=== PATIENT | female | born 1940 | race Caucasian/White ===

== ENCOUNTER 2016-05-03 20:00 | Inpatient (IN) | payer MEDICARE ==
[2016-05-03] MEDS ORDERED: RX INFO: IV CONTRAST WAS GIVEN 1 EACH MISC MISCELLANE PRN (20:02)
--- NOTE | 2016-05-03 20:28 | CT ---
EXAMINATION TYPE: CT brain wo con DATE OF EXAM: 05/03/2016 8:23 PM COMPARISON: NONE HISTORY: Left sided weakness. CT DLP: 1174 mGycm Automated exposure control for dose reduction was used. FINDINGS: Ventricles and sulci appear normal for age. There is no mass effect nor midline shift. There is no si gn of intracranial hemorrhage. The calvarium is intact. IMPRESSION: Negative unenhanced head CT scan.
[2016-05-03 20:45] LABS: Glucose,Whole Blood 103 mg/dL (75-99)
[2016-05-03 20:53] LABS: Basophils % (A) 0 %; CH 32.2; CHCM 33.9; Eosinophils # (A) 0.2 k/uL (0-0.7); Eosinophils % (A) 3 %; HCT 39.1 % (34.0-46.0); HGB 13.1 gm/dL (11.4-16.0); Luc # (Auto) 0.15; Luc % (Auto) 3; Lymphocytes # (A) 1.8 k/uL (1.0-4.8); Lymphocytes % (A) 32 %; MCH 31.8 pg (25.0-35.0); MCHC 33.5 g/dL (31.0-37.0); MCV 95.1 fL (80.0-100.0); Mean Platelet Volume 8.3; Monocytes # (A) 0.3 k/uL (0-1.0); Monocytes % (A) 5 %; Neutrophils # (A) 3.2 k/uL (1.3-7.7); Neutrophils % (A) 56 %; RBC 4.11 m/uL (3.80-5.40); RDW 12.3 % (11.5-15.5); WBC 5.7 k/uL (3.8-10.6); WBC (Perox) 5.97
[2016-05-03 20:57] LABS: ALT 20 U/L (9-52); AST 31 U/L (14-36); Alkaline Phosphatase 44 U/L (38-126); Anion Gap 9 mmol/L; Blood Urea Nitrogen 19 mg/dL (7-17); Calcium 9.2 mg/dL (8.4-10.2); Carbon Dioxide 24 mmol/L (22-30); Chloride 107 mmol/L (98-107); Glucose 99 mg/dL (74-99); Non-African American GFR(MDRD) >60 (>60 ml/min/1.73 sqM); Prothrombin Time 9.9 sec (9.0-12.0); Sodium 140 mmol/L (137-145); Total Bilirubin 0.6 mg/dL (0.2-1.3); Total Protein 7.3 g/dL (6.3-8.2)
[2016-05-03 21:00] LABS: Potassium 4.7 mmol/L (3.5-5.1)
[2016-05-03 21:03] LABS: Partial Thromboplastin Time 22.3 sec (22.0-30.0)
[2016-05-03 21:09] LABS: Creatine Kinase 70 U/L (30-135)
--- NOTE | 2016-05-03 21:12 | XR ---
EXAMINATION TYPE: XR chest 1V portable DATE OF EXAM: 05/03/2016 9:04 PM COMPARISON: NONE HISTORY: Altered mental status. TECHNIQUE: Single frontal view of the chest is obtained. FINDINGS: Heart is enlarged. There is no heart failure. Lungs are clear of infiltrate. There is no e vidence of pulmonary mass. There are chest leads. There is no sign of pleural effusion. IMPRESSION: Mild cardiomegaly. No active cardiopulmonary disease.
[2016-05-03] MEDS ORDERED: ASPIRIN 81 MG CHEW PO STA (21:15)
--- NOTE | 2016-05-03 21:17 | CT ---
EXAMINATION TYPE: CT angio head neck DATE OF EXAM: 05/03/2016 8:59 PM COMPARISON: NONE HISTORY: Left side weakness. CT DLP: 422 mGycm Automated exposure control for dose reduction was used. CONTRAST: Performed with IV Contrast, patient injected with 65 mL of Omnipaque 300. FINDINGS: There are 3-D post processed images. The left vertebral artery as origin on the aortic arch. There is patency of the great vessels. There is mild plaque at the left carotid artery bifurcation with luminal narrowing of 25-30%. There is gusman ncy of the common carotid arteries. Right vertebral artery is larger than the left. The right carotid artery bifurcation appears widely patent. There is normal contrast opacification of the anterior middle and posterior cerebral arteries. There is no mass effect. There is no sign of aneurysm or neovascularity. There is patency of the vertebroba silar artery system. The basilar artery fills mostly from the right side. There is patency of the venous sinuses. I see no evidence of hemodynamically significant stenosis. IMPRESSION: MINIMAL CALCIFICATION AND PLAQUE AT THE LEFT CAROTID ARTERY BIFURCATION. NO EVIDENCE OF HEMODYNAMICAL LY SIGNIFICANT STENOSIS. NO INTRACRANIAL ABNORMALITY SEEN.
[2016-05-03 21:22] LABS: Creatine Kinase MB 0.8 ng/mL (0.0-2.4); Troponin I <0.012 ng/mL (0.000-0.034)
--- NOTE | 2016-05-03 22:04 | ED ---
Neuro HPI - General Chief Complaint: Neuro Symptoms/Deficit Stated Complaint: stroke Time Seen by Provider: 05/03/16 20:07 Source: EMS Mode of arrival: EMS Limitations: no limitations - History of Present Illness Is the patient presenting with stroke symptoms?: Yes Last Known Well Date: 05/03/16 Last Known Well Time: 19:30 Onset/Timin -: hour(s) Initial Comments: This patient is a 75-year-old woman who comes in by ambulance to be evaluated for possible stroke. She states she was at work tonight when her noted that the left side of her face looked different. The patient also feels like her left face and hand are little bit tingly. Patient denies headache, change in vision, speech or swallowing, neck pain, or any symptoms to the other extremities. No fever or chills. No chest pain or dyspnea. Location: left face, left arm History of same: No Place: work Severity: mild Quality: weak Improves With: none Worsens With: none On Anticoagulants: No Context: sudden onset Associated Symptoms: denies other symptoms - Related Data Allergies/Adverse Reactions: Allergies Allergy/AdvReac Type Severity Reaction Status Date / Time No Known Allergies Allergy Verified 05/03/16 20:48 Review of Systems ROS Statement: Those systems with pertinent positive or pertinent negative responses have been documented in the HPI. ROS Other: All systems not noted in ROS Statement are negative. Constitutional: Denies: fever, chills Eyes: Denies: vision change ENT: Denies: hearing loss Respiratory: Denies: cough, dyspnea Cardiovascular: Denies: chest pain, palpitations, edema, syncope Gastrointestinal: Denies: abdominal pain, nausea, vomiting Genitourinary: Denies: dysuria, hematuria Musculoskeletal: Denies: back pain Skin: Denies: rash Neurological: Reports: weakness. Denies: headache, numbness, paresthesias, confusion General Exam Limitations: no limitations General appearance: alert, in no apparent distress Head exam: Present: atraumatic, normocephalic Eye exam: Present: normal appearance, PERRL, EOMI. Absent: scleral icterus, conjunctival injection, nystagmus ENT exam: Present: normal oropharynx, mucous membranes moist Neck exam: Present: normal inspection, full ROM, other (No carotid bruit). Absent: tenderness, meningismus Respiratory exam: Present: normal lung sounds bilaterally. Absent: respiratory distress, wheezes, rales, rhonchi, stridor Cardiovascular Exam: Present: regular rate, normal rhythm, normal heart sounds. Absent: systolic murmur, diastolic murmur, rubs, gallop GI/Abdominal exam: Present: soft. Absent: distended, tenderness, guarding, rebound, rigid Extremities exam: Present: normal inspection, normal capillary refill. Absent: pedal edema, calf tenderness Back exam: Absent: CVA tenderness (R), CVA tenderness (L) Neurological exam: Present: alert, oriented X3, motor sensory deficit, other ( GCS is 15. Patient is alert and oriented 3. Cranial nerve exam reveals weakness of the lower motor neuron function of the left side of the face. Patient is able to raise her left brow and there is good lid strength. Motor strength exam reveals mild left upper extremity weakness versus the contralateral side but still 5 out of 5. No sensory deficit.). Absent: CN II- XII intact Skin exam: Present: warm, dry, intact, normal color. Absent: rash Stroke MDM - Lab Data Result diagrams: 05/03/16 20:33 05/03/16 20:33 Lab Results 05/03/16 05/03/16 05/03/16 Range/Units 20:24 20:33 20:33 WBC 5.7 (3.8-10.6) k/uL RBC 4.11 (3.80-5.40) m/uL Hgb 13.1 (11.4-16.0) gm/dL Hct 39.1 (34.0-46.0) % MCV 95.1 (80.0-100.0) fL MCH 31.8 (25.0-35.0) pg MCHC 33.5 (31.0-37.0) g/dL RDW 12.3 (11.5-15.5) % Plt Count 172 (150-450) k/uL Neutrophils % 56 % Lymphocytes % 32 % Monocytes % 5 % Eosinophils % 3 % Basophils % 0 % Neutrophils # 3.2 (1.3-7.7) k/uL Lymphocytes # 1.8 (1.0-4.8) k/uL Monocytes # 0.3 (0-1.0) k/uL Eosinophils # 0.2 (0-0.7) k/uL Basophils # 0.0 (0-0.2) k/uL PT (9.0-12.0) sec INR (<1.1) APTT (22.0-30.0) sec Sodium 140 (137-145) mmol/L Potassium 4.7 (3.5-5.1) mmol/L Chloride 107 (98-107) mmol/L Carbon Dioxide 24 (22-30) mmol/L Anion Gap 9 mmol/L BUN 19 H (7-17) mg/dL Creatinine 0.70 (0.52-1.04) mg/dL Est GFR (MDRD) Af Amer >60 (>60 ml/min/1.73 sqM) Est GFR (MDRD) Non-Af >60 (>60 ml/min/1.73 sqM) Glucose 99 (74-99) mg/dL POC Glucose (mg/dL) 103 H (75-99) mg/dL POC Glu E [employer] Strategist ID Clarita Sanchez Calcium 9.2 (8.4-10.2) mg/dL Total Bilirubin 0.6 (0.2-1.3) mg/dL AST 31 (14-36) U/L ALT 20 (9-52) U/L Alkaline Phosphatase 44 (38-126) U/L Total Creatine Kinase (30-135) U/L CK-MB (CK-2) (0.0-2.4) ng/mL CK-MB (CK-2) Rel Index Troponin I (0.000-0.034) ng/mL Total Protein 7.3 (6.3-8.2) g/dL Albumin 4.1 (3.5-5.0) g/dL 05/03/16 05/03/16 Range/Units 20:33 20:33 WBC (3.8-10.6) k/uL RBC (3.80-5.40) m/uL Hgb (11.4-16.0) gm/dL Hct (34.0-46.0) % MCV (80.0-100.0) fL MCH (25.0-35.0) pg MCHC (31.0-37.0) g/dL RDW (11.5-15.5) % Plt Count (150-450) k/uL Neutrophils % % Lymphocytes % % Monocytes % % Eosinophils % % Basophils % % Neutrophils # (1.3-7.7) k/uL Lymphocytes # (1.0-4.8) k/uL Monocytes # (0-1.0) k/uL Eosinophils # (0-0.7) k/uL Basophils # (0-0.2) k/uL PT 9.9 (9.0-12.0) sec INR 1.0 (<1.1) APTT 22.3 (22.0-30.0) sec Sodium (137-145) mmol/L Potassium (3.5-5.1) mmol/L Chloride (98-107) mmol/L Carbon Dioxide (22-30) mmol/L Anion Gap mmol/L BUN (7-17) mg/dL Creatinine (0.52-1.04) mg/dL Est GFR (MDRD) Af Amer (>60 ml/min/1.73 sqM) Est GFR (MDRD) Non-Af (>60 ml/min/1.73 sqM) Glucose (74-99) mg/dL POC Glucose (mg/dL) (75-99) mg/dL POC Glu E [employer] Strategist ID Calcium (8.4-10.2) mg/dL Total Bilirubin (0.2-1.3) mg/dL AST (14-36) U/L ALT (9-52) U/L Alkaline Phosphatase (38-126) U/L Total Creatine Kinase 70 (30-135) U/L CK-MB (CK-2) 0.8 (0.0-2.4) ng/mL CK-MB (CK-2) Rel Index 1.1 Troponin I <0.012 (0.000-0.034) ng/mL Total Protein (6.3-8.2) g/dL Albumin (3.5-5.0) g/dL - Medical Decision Making Patient is a 75-year-old woman who presents with acute ischemic stroke symptoms. Patient's had consultation with the stroke team, and is felt that based on the low NIH SS score that thrombolysis is not indicated. Patient admitted to have neurology consultation and further workup. - EKG Data -: EKG Interpreted by Me EKG shows normal: sinus rhythm, axis (Normal), intervals (Normal), ST-T waves Rate: normal (Rate 77 bpm) Interpretation: unchanged when compared to prior tracing (date) (Normal) Past Medical History Past Medical History: Hyperlipidemia, Hypertension History of Any Multi-Drug Resistant Organisms: None Reported Additional Past Surgical History / Comment(s): rotator cuff surgery Past Psychological History: No Psychological Hx Reported Smoking Status: Never smoker Past Alcohol Use History: Occasional Past Drug Use History: None Reported - Past Family History Mother Family Medical History: Coronary Artery Disease (CAD), Hyperlipidemia, Hypertension, Myocardial Infarction ([place]) Course Vital Signs 05/03/16 05/03/16 05/03/16 20:15 20:21 20:27 Temperature 98.1 F 98.5 F Pulse Rate 77 78 68 Pulse Rate [ Pulse Oximetery ] Respiratory 18 16 16 Rate Blood Pressure 216/93 216/93 226/98 Blood Pressure [Left Arm Supine] O2 Sat by Pulse 99 98 99 Oximetry 05/03/16 05/03/16 05/03/16 20:36 20:38 20:40 Temperature Pulse Rate 73 68 69 Pulse Rate [ Pulse Oximetery ] Respiratory 16 16 16 Rate Blood Pressure 252/116 226/107 215/107 Blood Pressure [Left Arm Supine] O2 Sat by Pulse 100 100 100 Oximetry 05/03/16 05/03/16 05/03/16 20:43 20:53 21:03 Temperature Pulse Rate 70 70 68 Pulse Rate [ Pulse Oximetery ] Respiratory 16 16 16 Rate Blood Pressure 207/96 216/90 212/94 Blood Pressure [Left Arm Supine] O2 Sat by Pulse 98 100 100 Oximetry 05/03/16 05/03/16 05/03/16 21:18 21:48 22:18 Temperature 97.1 F L Pulse Rate 68 69 Pulse Rate [ 78 Pulse Oximetery ] Respiratory 16 16 18 Rate Blood Pressure 238/112 222/102 Blood Pressure 104/92 [Left Arm Supine] O2 Sat by Pulse 100 100 Oximetry Critical Care Time Critical Care Time: Yes (40 minutes) Disposition Clinical Impression: Acute ischemic stroke Disposition: ADMITTED IP TO THIS HOSP Condition: Fair
[2016-05-03] MEDS: SODIUM CHLORIDE 0.9% 1,000 ML IV SCH (22:15)
[2016-05-04] MEDS: ONDANSETRON 4 MG/2 ML VIAL IVP PRN ×2 (01:20→12:34)
[2016-05-04] MEDS: FAMOTIDINE 20 MG/2 ML VIAL IV SCH ×2 (09:49→19:36)
[2016-05-04] MEDS: SODIUM CHLORIDE 0.9% 1,000 ML IV SCH ×2 (09:49→19:37)
--- NOTE | 2016-05-04 11:06 | P.CRDCN ---
History of Present Illness Consult date: 05/04/16 Reason for Consult (text): elevated troponin Chief complaint: left facial droop, slurred speech History of present illness: This is a pleasant 75-year-old female patient with a history of hypertension and hyperlipidemia. Presented to the emergency department after noticed a left facial droop as well as slurred speech. On presentation patient' s blood pressure was 252/116. Coronary the patient several weeks ago she noticed episodes of dizziness mostly upon standing and was having low blood pressure per her home blood pressure cuff and her Cozaar was decreased from 100 mg daily to 25 mg daily by her primary care physician. Patient underwent CT angiogram of the head and neck that showed no evidence of hemodynamically significant stenosis and no intracranial abnormalities. Computed tomography scan of the brain without contrast was negative. Laboratory values showed a troponin of less than 0.012 initially and subsequently 0.195 and 0.199. On examination patient is resting comfortably in bed with at the bedside. Continues to complain of a left facial droop and slurred speech that has improved slightly since admission. She denies complaints of chest discomfort, shortness of breath, syncope or edema. Past Medical History Past Medical History: Hyperlipidemia, Hypertension History of Any Multi-Drug Resistant Organisms: None Reported Additional Past Surgical History / Comment(s): rotator cuff surgery Past Anesthesia/Blood Transfusion Reactions: No Reported Reaction Past Psychological History: No Psychological Hx Reported Smoking Status: Never smoker Past Alcohol Use History: Occasional Past Drug Use History: None Reported - Past Family History Mother Family Medical History: Coronary Artery Disease (CAD), Hyperlipidemia, Hypertension, Myocardial Infarction ([place]) Medications and Allergies Allergies Allergy/AdvReac Type Severity Reaction Status Date / Time No Known Allergies Allergy Verified 05/03/16 20:48 Physical Exam Vitals: Vital Signs Temp Pulse Resp BP 05/04/16 08:00 97.9 F 95 18 167/73 05/04/16 04:00 98.2 F 71 18 169/90 05/04/16 00:00 97.7 F 67 18 197/87 05/03/16 22:18 97.1 F L 78 18 104/92 Intake and Output 05/03/16 05/04/16 05/04/16 22:59 06:59 14:59 Intake Total 800 Output Total 300 Balance 500 Intake: Intake, IV Titration 800 Amount Sodium Chloride 0.9% 1, 800 000 ml @ 100 mls/hr IV . Q10H [facility] Rx#:[id number] Output: Urine 300 Other: Voiding Method Toilet Bedside Commode # Voids 1 2 1 Weight 78.6 kg PHYSICAL EXAMINATION: HEENT: Head is atraumatic, normocephalic. Pupils equal, round. Neck is supple. There is no elevated jugular venous pressure. HEART EXAMINATION: Heart sounds regular, S1 and S2 normal. No murmur or gallop heard. CHEST EXAMINATION: Lungs are clear to auscultation and precussion. No chest wall tenderness is noted on palpation or with deep breathing. ABDOMEN: Soft, nontender. Bowel sounds are heard. No organomegaly noted. EXTREMITIES: 2+ peripheral pulses with no evidence of peripheral edema and no calf tenderness noted. NEUROLOGIC patient is awake, alert and oriented x3. Left sided facial droop, tongue deviates to the left, slurred speech noted, weakness noted to left hand grasp and left dorsiflexion and plantar flexion. . Results 05/03/16 20:33 05/03/16 20:33 Cardiac Enzymes 05/04/16 05/04/16 Range/Units 02:20 08:41 Troponin I 0.195 H* 0.199 H* (0.000-0.034) ng/mL Current Medications Generic Name Dose Route Start Last Admin Trade Name Freq PRN Reason Stop Dose Admin Aspirin 325 mg 05/04/16 20:00 Aspirin PO DAILY [facility] Famotidine 20 mg 05/04/16 09:00 05/04/16 09:49 Pepcid IV 20 mg Q12HR [facility] Administration Sodium Chloride 1,000 mls @ 100 mls/hr 05/03/16 22:00 05/04/16 09:49 Saline 0.9% IV 100 mls/hr .Q10H [facility] Administration Miscellaneous Information 1 each 05/03/16 20:02 05/03/16 21:09 Rx Info: Iv Contrast Was Given MISCELLANE 05/05/16 20:02 1 each DAILY PRN Administration Per Protocol Ondansetron HCl 4 mg 05/03/16 23:36 05/04/16 01:20 Zofran IVP 4 mg Q6HR PRN Administration Nausea And Vomiting Intake and Output 05/03/16 05/04/16 05/04/16 22:59 06:59 14:59 Intake Total 800 Output Total 300 Balance 500 Intake: Intake, IV Titration 800 Amount Sodium Chloride 0.9% 1, 800 000 ml @ 100 mls/hr IV . Q10H [facility] Rx#:[id number] Output: Urine 300 Other: Voiding Method Toilet Bedside Commode # Voids 1 2 1 Weight 78.6 kg EKG Interpretations (text) Normal sinus rhythm without ST-T wave abnormalities Assessment and Plan Plan: Assessment and plan #1 acute CVA #2 hypertension #3 hyperlipidemia #4 elevated troponin likely secondary to CVA and supply demand mismatch. From cardiology's perspective, we'll obtain a 2-D echo. We'll resume home dose of Cozaar. We will order Lipitor 40 mg daily at bedtime. Give the patient Plavix 300 mg 1 now then 75 mg daily. Awaiting Further evaluation by neurology. Further recommendations to follow. [employer] note has been reviewed, I agree with a documented findings and plan of care. Patient was seen and examined.
[2016-05-04] MEDS ORDERED: CLOPIDOGREL 75 MG TAB PO STA (11:24)
--- NOTE | 2016-05-04 12:32 | US ---
EXAMINATION TYPE: US carotid duplex BILAT DATE OF EXAM: 05/04/2016 12:22 PM COMPARISON: NONE CLINICAL HISTORY: CVA. EXAM MEASUREMENTS: RIGHT: Peak Systolic Velocity (PSV) cm/sec ----- Right CCA: 74.6 ----- Right ICA: 93.1 ----- Right ECA: 162.4 ICA/CCA ratio: 1.2 RIGHT: End Diastole cm/sec ----- Right CCA: 15.3 ----- Right ICA: 19.3 ----- Right ECA: 27.6 LEFT: Peak Systolic Velocity (PSV) cm/sec ----- Left CCA: 60.3 ----- Left ICA: 93.1 ----- Left ECA: 153.1 ICA/CCA ratio: 1.5 LEFT: End Diastole cm/sec ----- Left CCA: 16.4 ----- Left ICA: 32.2 ----- Left ECA: 20.7 VERTEBRALS (direction of flow): Right Vertebral: Antegrade Left Vertebral: Antegrade Mild plaque noted bilateral bifurcations, greater on the left. Mildly increased velocities bilateral ECA's. No evidence of significant stenosis IMPRESSION: There is antegrade flow in the vertebral arteries. There is elevated external carotid artery velocity consistent with 50-70% stenosis. The measurements suggest up to 50% stenosis in both internal carotid arteries. Criteria for Assigning % of Stenosis / Diameter reduction (Estimation based on the indirect measurements of the internal carotid artery velocities (ICA PSV). 1. Normal (no stenosis)=ICA PSV < 125 cm/s: ratio < 2.0: ICA EDV<40 cm/s. 2. Less than 50% stenosis=ICA PSV < 125 cm/s: ratio < 2.0: ICA EDV<40 cm/s. 3. 50 to 69% stenosis=ICA PSV of 125 to 230 cm/s: ration 2.0 ? 4.0: ICA EDV 40-100 cm/s. 4. Greater than 70% stenosis to near occlusion= ICA PSV > 230 cm/s: ratio > 4.0: ICA EDV > 100 cm/s. 5. Near occlusion= ICA PSV velocities may be low or undetectable: variable ratio and ICA EDV. 6. Total occlusion=unable to detect flow.
[2016-05-04 12:50] LABS: Cholesterol 154 mg/dL (<200); HDL Cholesterol 55 mg/dL (40-60); Triglycerides 85 mg/dL (<150)
--- NOTE | 2016-05-04 15:26 | P.CONS ---
History of Present Illness - Reason for Consult Consult date: 05/04/16 - Chief Complaint Stroke - History of Present Illness This is a 75-year-old female being evaluated by the neurology service for left facial droop and left upper extremity weakness. She also had some slurred speech and has just failed a bedside swallow study. He was brought to the [facility] emergency room by her who noticed left facial drooping and slurred speech. Her blood pressure on presentation was quite high. She continues to have elevated troponins and is being evaluated by cardiology. Her carotid Doppler did show 50% bilateral stenosis. CTA of the neck did not show evidence of any hemodynamically significant stenosis. Her CT of the brain showed no acute intracranial abnormalities. At time of my examination she is resting comfortably in bed with obvious left facial droop and left arm weakness. She was evaluated in the ER and TPA was not considered due to a low NIH score. Review of Systems All systems: negative Constitutional: Reports as per HPI Past Medical History Past Medical History: Hyperlipidemia, Hypertension History of Any Multi-Drug Resistant Organisms: None Reported Additional Past Surgical History / Comment(s): rotator cuff surgery Past Anesthesia/Blood Transfusion Reactions: No Reported Reaction Past Psychological History: No Psychological Hx Reported Smoking Status: Never smoker Past Alcohol Use History: Occasional Past Drug Use History: None Reported - Past Family History Mother Family Medical History: Coronary Artery Disease (CAD), Hyperlipidemia, Hypertension, Myocardial Infarction ([place]) Medications and Allergies Home Medications Medication Instructions Recorded Confirmed Type Famotidine [Pepcid] 20 mg PO DAILY 05/04/16 05/04/16 History Levothyroxine Sodium [Synthroid] 25 mcg PO DAILY 05/04/16 05/04/16 History Losartan [Cozaar] 25 mg PO DAILY 05/04/16 05/04/16 History Simvastatin [Zocor] 40 mg PO DAILY 05/04/16 05/04/16 History Allergies Allergy/AdvReac Type Severity Reaction Status Date / Time No Known Allergies Allergy Verified 05/04/16 12:02 Physical Exam Vitals: Vital Signs Temp Pulse Resp BP Pulse Ox 05/04/16 12:56 97 18 173/72 95 05/04/16 10:56 98.4 F 95 18 186/88 96 05/04/16 08:00 97.9 F 95 18 167/73 05/04/16 04:00 98.2 F 71 18 169/90 05/04/16 00:00 97.7 F 67 18 197/87 05/03/16 22:18 97.1 F L 78 18 104/92 Intake and Output 05/04/16 05/04/16 05/04/16 06:59 14:59 22:59 Intake Total 800 Output Total 300 Balance 500 Intake: Intake, IV Titration 800 Amount Sodium Chloride 0.9% 1, 800 000 ml @ 100 mls/hr IV . Q10H [facility] Rx#:[id number] Output: Urine 300 Other: Voiding Method Toilet Bedside Commode # Voids 2 1 Weight 78.6 kg - Constitutional General appearance: average body habitus, no acute distress - EENT She has slightly slow tracking bilaterally to the left. Eyes: no abnormal pupil, PERRLA, no ptosis ENT: hearing grossly normal - Neck Neck: normal ROM, no rigidity - Respiratory Respiratory: negative: prolonged expiration, prolonged inspiration - Cardiovascular Rhythm: regular - Gastrointestinal General gastrointestinal: no distended, no tenderness - Neurologic Patient is alert awake and oriented 3. Speech is mildly dysarthric. Facial droop. Language is normal. There is a left facial droop. Strength is full in right upper and bilateral lower extremities. Strength is 4+ and left upper extremity. There is no sensory deficit. Is no tremor or seizure-like activity. There is mild pronator drift on the left. There is dysmetria on the left. No visual field cuts are present. Results CBC & Chem 7: 05/03/16 20:33 05/03/16 20:33 Labs: Abnormal Lab Results - Last 24 Hours (Table) 05/04/16 05/04/16 Range/Units 02:20 08:41 Troponin I 0.195 H* 0.199 H* (0.000-0.034) ng/mL Assessment and Plan (1) Left arm weakness Status: Acute (2) Dysphagia as late effect of cerebrovascular accident (CVA) Status: Acute (3) Facial droop due to stroke Status: Acute (4) Elevated troponin Status: Acute (5) Hypertension Status: Chronic (6) Hyperlipidemia Status: Chronic (7) Acute ischemic stroke Status: Acute Plan: She has likely suffered an acute stroke of the right middle cerebral artery distribution. She continues to have significant swallowing problems and has failed a bedside swallowing test. I will Order a swallowing study. I will also order an MRI of the brain. She will continue to work with speech therapy, physical therapy, occupational therapy. Continue neurological checks. Continue Plavix 75 mg daily and Lipitor. We will continue to follow and make further recommendations based on the above studies. I have reviewed the history and physical on the above patient. I have reviewed the above note, and agree.
[2016-05-04] MEDS: ATORVASTATIN 40 MG TAB PO SCH (19:37)
[2016-05-04] MEDS: ASPIRIN 325 MG TAB PO SCH (19:49)
--- NOTE | 2016-05-04 20:15 | HP ---
DATE OF ADMISSION: 05/03/2016 CHIEF COMPLAINT: Slurred speech and left-sided weakness and dizziness. HISTORY OF PRESENT ILLNESS: Mr. Carroll is a 75 -year-old female with known history of hypertension, hyperlipidemia, came to the ER with complaints of left facial droop as well as slurred speech. Apparently patient felt dizziness and her noticed left-sided facial droop and patient came to the hospital. Initially blood pressure was elevated and ( ) around 250/116 on admission. Otherwise, patient denied any recent illnesses or sick contacts at home. No recent travel. Patient has easily blood pressure is controlled and recently blood pressure medication has been reduced due to hypotension and dizziness. Otherwise, the patient denied any complaints. In the ER, patient had a CT of the head was done that showed no acute process. CT angiogram showed no significant stenosis and EKG normal sinus rhythm and troponins not elevated and cardiology and neurology has been consulted. REVIEW OF SYSTEMS: CONSTITUTIONAL: No fever. No chills. RESPIRATORY: No cough or sputum production. CARDIOVASCULAR: No chest pain or short of breath. ABDOMEN: No nausea, vomiting, or abdominal pain. GENITOURINARY: Negative. ENDOCRINE: Negative. PSYCHIATRIC: Negative. SKIN: Negative. All other fourteen-point review of systems negative except as above. She was evaluated in the ER and TPA was not considered due to low ( ) score. PAST MEDICAL HISTORY: Hypertension, hyperlipidemia. PAST SURGICAL HISTORY: Rotator cuff surgery. SOCIAL HISTORY: Patient never a smoker. Occasional alcohol use. Denied any drugs or IVDU. FAMILY HISTORY: Mother has coronary artery disease, hyperlipidemia, hypertension, and [place]. Home medications: 1. Pepcid. 2. Synthroid. 3. Cozaar. 4. Zocor. ALLERGIES: No known drug allergies. PHYSICAL EXAMINATION: A 75-year-old female, lying in bed. Awake, alert, oriented, x3. He appears to be in no apparent distress. VITALS: Blood pressure is 226/98, pulse is 68, respirations 16, temperature afebrile, pulse ox 99% on 2 L nasal cannula. Blood pressure now is 173/95, pulse is 64, respirations 18, temperature afebrile, pulse ox 98% on room air. HEENT: Atraumatic, neck is supple. Neck is supple. No JVD. CVS: S1, S2 heard. No murmurs, no gallop, no rub. LUNGS: Bilateral air entry is present. No wheezing. No crackles. Nonlabored breathing. ABDOMEN: Soft, nontender. Bowel sounds are present. CARDIOVASCULAR TECHNICIAN: Awake, alert, oriented, x3. Patient does have left-sided facial droop and left-sided leg weakness 4 out of 5 and left upper extremity weakness, 3 out of 5. EXTREMITIES : No edema. Pulses palpable bilaterally. No clubbing or cyanosis. PSYCHIATRIC: Cooperative. LABORATORY DATA: WBC 5.7, hemoglobin 13.1, platelets 172, INR 1.0. Sodium 140, potassium 4.7, chloride 107, bicarb is 24. BUN 19, creatinine 0.7. Troponin less than 0.012, and 0.[address] angiogram showed no acute minimal calcification in the plaque at the left carotid artery bifurcation. No evidence of hemodynamically significant stenosis. CT head showed no acute intracranial process. Chest x-ray, mild cardiomegaly. No active pulmonary disease. Carotid duplex, no significant stenosis. IMPRESSION: 1. Acute cerebrovascular accident with left-sided weakness and facial droop along with dysarthria and slurred speech. Patient also has dysphagia. 2. Elevated troponin level probably due to uncontrolled hypertension, cerebrovascular accident. 3. Hypertension. 4. Hyperlipidemia. DISCUSSION AND PLAN: Patient was started on aspirin 325 mg daily. We will continue the Cozaar and will add hydrochlorothiazide and continue with the IV fluids and follow up closely. Cardiology is following this patient. Neurology is on board. The patient had a 2-D echo as well. Further recommendations based on clinical course. The patient most likely has cerebrovascular accident involving the right middle cerebral artery distribution. Patient failed swallow evaluation and speech and swallow evaluation as well as barium swallow evaluation was ordered. Currently, patient n.p.o. and continue with IV hydration.
[2016-05-05] MEDS: LEVOTHYROXINE 25 MCG TAB PO SCH (06:03)
[2016-05-05] MEDS: SODIUM CHLORIDE 0.9% 1,000 ML IV SCH ×2 (06:03→15:06)
[2016-05-05] MEDS: CLOPIDOGREL 75 MG TAB PO SCH (08:30)
[2016-05-05] MEDS: ASPIRIN 325 MG TAB PO SCH (08:30)
[2016-05-05] MEDS: FAMOTIDINE 20 MG/2 ML VIAL IV SCH ×2 (08:30→21:29)
[2016-05-05] MEDS: LOSARTAN 25 MG TAB PO SCH (08:30)
--- NOTE | 2016-05-05 12:40 | P.PN ---
Subjective Principal diagnosis: Stroke 75-year-old female continuing to be evaluated by the neurology service for stroke. Symptoms of left facial droop and left upper extremity weakness remains but are improving. She did fail the bedside swallowing study. With observation she is now swallowing liquids and soft foods and mechanically altered foods with some difficulty. Barium swallow has been ordered. Recall that her CT showed no acute intracranial abnormalities. We have ordered an MRI of the brain. Her fasting lipid panel revealed triglycerides of 85 total cholesterol 154 and LDL of 80 and an HDL of 55. She is artery on Lipitor 40 mg daily. At the time my examination she is resting comfortably in bed, drinking water with some difficulty. There is no choking or aspiration noted. Objective - Vital Signs Vital signs: Vital Signs Temp 97.8 F 05/05/16 08:00 Pulse 67 05/05/16 08:00 Resp 18 05/05/16 08:00 BP 153/73 05/05/16 08:00 Pulse Ox 94 L 05/05/16 08:00 Intake & Output 05/04/16 05/05/16 05/05/16 18:59 06:59 18:59 Intake Total 800 1200 500 Output Total 200 Balance 600 1200 500 Weight 79.2 kg Intake: Intake, IV Titration 800 1200 Amount Sodium Chloride 0.9% 1, 800 1200 000 ml @ 100 mls/hr IV . Q10H [facility] Rx#:[id number] Oral 500 Output: Urine 200 Other: Voiding Method Toilet Bedside Commode # Voids 1 1 - Constitutional General appearance: Present: average body habitus, cooperative, no acute distress - EENT Eyes: Present: PERRLA, ptosis. Absent: abnormal pupil - Neck Neck: Present: normal ROM. Absent: rigidity - Respiratory Respiratory: negative: prolonged expiration, prolonged inspiration - Gastrointestinal General gastrointestinal: Absent: distended, tenderness - Neurologic Neurologic Comment(s): Is alert awake and oriented 3. Speech is mildly dysarthric. Facial droop persists but is improving. Language is normal. Strength remains 4+ in left upper extremity. Otherwise strength testing is normal. There is no sensory deficit. Tremors or seizure-like activities are seen. Dysmetria on the left. Isn't remains intact. - Labs CBC & Chem 7: 05/03/16 20:33 05/03/16 20:33 Assessment and Plan (1) Left arm weakness Status: Acute (2) Dysphagia as late effect of cerebrovascular accident (CVA) Status: Acute (3) Facial droop due to stroke Status: Acute (4) Elevated troponin Status: Acute (5) Hypertension Status: Chronic (6) Hyperlipidemia Status: Chronic (7) Acute ischemic stroke Status: Acute Plan: She has likely suffered an acute stroke of the right middle cerebral artery distribution. She continues to have some swallowing problems and has failed a swallowing study is pending, as is an MRI of the brain. She will continue to work with speech therapy, physical therapy, occupational therapy. Continue neurological checks. Continue Plavix 75 mg daily and Lipitor. We will continue to follow and make further recommendations based on the above studies. I have reviewed the history and physical on the above patient. I have reviewed the above note, and agree.
--- NOTE | 2016-05-05 15:15 | PN ---
This patient has presented with acute stroke. She is feeling better. Patient's speech is improved. There is no localized weakness noted. Blood pressure is 165/84 mmHg. First and second heart sounds are normal. Lungs are clinically clear to auscultation and percussion. We will continue the patient on Plavix 75 mg daily. The combination of baby aspirin and Plavix can be continued for 4 weeks and then she can be switched to the baby aspirin once a day.
[2016-05-05] MEDS: ATORVASTATIN 40 MG TAB PO SCH (21:29)
[2016-05-06] MEDS: SODIUM CHLORIDE 0.9% 1,000 ML IV SCH (01:21)
[2016-05-06] MEDS: LEVOTHYROXINE 25 MCG TAB PO SCH (06:17)
[2016-05-06 07:13] LABS: Basophils % (A) 0 %; CH 31.8; CHCM 33.4; Eosinophils # (A) 0.2 k/uL (0-0.7); Eosinophils % (A) 3 %; HCT 37.6 % (34.0-46.0); HGB 12.6 gm/dL (11.4-16.0); Luc # (Auto) 0.12; Luc % (Auto) 2; Lymphocytes # (A) 1.7 k/uL (1.0-4.8); Lymphocytes % (A) 30 %; MCH 32.1 pg (25.0-35.0); MCHC 33.6 g/dL (31.0-37.0); MCV 95.6 fL (80.0-100.0); Mean Platelet Volume 7.5; Monocytes # (A) 0.3 k/uL (0-1.0); Monocytes % (A) 6 %; Neutrophils # (A) 3.3 k/uL (1.3-7.7); Neutrophils % (A) 59 %; RBC 3.93 m/uL (3.80-5.40); RDW 12.4 % (11.5-15.5); WBC 5.6 k/uL (3.8-10.6); WBC (Perox) 5.83
[2016-05-06 07:32] LABS: Anion Gap 8 mmol/L; Blood Urea Nitrogen 8 mg/dL (7-17); Calcium 8.9 mg/dL (8.4-10.2); Carbon Dioxide 23 mmol/L (22-30); Chloride 111 mmol/L (98-107); Glucose 88 mg/dL (74-99); Non-African American GFR(MDRD) >60 (>60 ml/min/1.73 sqM); Potassium 4.1 mmol/L (3.5-5.1); Sodium 142 mmol/L (137-145)
[2016-05-06] MEDS: FAMOTIDINE 20 MG/2 ML VIAL IV SCH ×2 (08:36→21:30)
[2016-05-06] MEDS: CLOPIDOGREL 75 MG TAB PO SCH (08:38)
[2016-05-06] MEDS: LOSARTAN 25 MG TAB PO SCH (08:38)
[2016-05-06] MEDS: ASPIRIN 81 MG CHEW PO SCH (08:38)
--- NOTE | 2016-05-06 10:53 | FL ---
Modified barium swallow. HISTORY: Dysphagia. Modified barium swallow was performed with the department of speech pathology. The patient was prese nted with various consistencies of barium. There is no evidence for aspiration or penetration. Full report is to follow from the department of speech pathology. Impression: No evidence for aspiration or penetration.
--- NOTE | 2016-05-06 11:45 | ECHOF ---
Referral Reason:elevated troponin MEASUREMENTS -------- HEIGHT: 167.6 cm WEIGHT: 78.5 kg BP: 167/73 RVIDd: 3.2 cm (< 3.3) IVSd: 1.2 cm (0.6 - 1.1) LVIDd: 4.3 cm (3.9 - 5.3) LVPWd: 1.0 cm (0.6 - 1.1) IVSs: 1.5 cm LVIDs: 3.0 cm LVPWs: 1.4 cm LA Diam: 4.3 cm (2.7 - 3.8) LAESV Index (A-L): 39.87 ml/m Ao Diam: 3.0 cm (2.0 - 3.7) AV Cusp: 2.1 cm (1.5 - 2.6) MV EXCURSION: 17.896 mm (> 18.000) MV EF SLOPE: 132 mm/s (70 - 150) EPSS: 0.2 cm MV E Kevan: 1.04 m/s MV DecT: 189 ms MV A Kevan: 0.66 m/s MV E/A Ratio: 1.56 RAP: 5.00 mmHg RVSP: 41.17 mmHg FINDINGS -------- Sinus rhythm. This was a technically good study. The left ventricular size is normal. There is borderline concentric left ventricular hypertrophy. Overall left ventricular systolic function is normal with, an EF between 55 - 60 %. The right ventricle is normal in size. LA is moderately dilated 34-39 ml/m2 The right atrium is normal in size. The aortic valve is trileaflet and appears structurally normal. The mitral valve is normal. Mpef-yq-bhjpterl mitral regurgitation is present. [id number] tricuspid regurgitation present. There is mild pulmonary hypertension. The right ventricular systolic pressure, as measured by Doppler, is 41.17mmHg. Trace/mild (physiologic) pulmonic regurgitation. The aortic root size is normal. Normal inferior vena cava with normal inspiratory collapse consistent with estimated right atrial pressure of 5 mmHg. There is no pericardial effusion. CONCLUSIONS -------- 1. Sinus rhythm. 2. The aortic root size is normal. 3. Normal inferior vena cava with normal inspiratory collapse consistent with estimated right atrial pressure of 5 mmHg. 4. There is no pericardial effusion. 5. This was a technically good study. 6. The left ventricular size is normal. 7. There is borderline concentric left ventricular hypertrophy. 8. Overall left ventricular systolic function is normal with, an EF between 55 - 60 %. 9. LA is moderately dilated 34-39 ml/m2 10. The aortic valve is trileaflet and appears structurally normal. 11. There is mild pulmonary hypertension. 12. Trace/mild (physiologic) pulmonic regurgitation. BARGAIN TABLE CLERK: Marge Corona RDCS
--- NOTE | 2016-05-06 11:48 | MR ---
EXAMINATION TYPE: MR brain wo con DATE OF EXAM: 05/06/2016 11:33 AM. COMPARISON: NONE. HISTORY: Left facial arm numbness. Technique: Multiplanar, multiecho imaging of the brain was obtained without intravenous contrast. FINDINGS: Midline structures are unremarkable. There is a normal craniocervical junction. There is restricted diffusion in both the anterior and posterior parietal regions on the right. This corresponds to areas of abnormally high T2 and FLAIR signal. There are additional punctate lesions pr esent bilaterally. There is no mass effect or midline shift. I do not see evidence of intracranial bl ood. There are normal vascular flow voids. The orbits are normal. There is no evidence of a CP angle mass lesion. IMPRESSION: 1. AREAS OF ACUTE ISCHEMIA INVOLVING BOTH THE ANTERIOR AND POSTERIOR PARIETAL REGIONS ON THE RIGHT. 2. PUNCTATE FLAIR LESIONS WITHIN THE DEEP WHITE MATTER TRACTS OF THE CEREBRAL HEMISPHERES, LIKELY ON THE BASIS SMALL VESSEL DISEASE.
--- NOTE | 2016-05-06 12:50 | PN ---
DATE OF SERVICE: 05/05/2016 INTERVAL HISTORY: Ms. Carroll is a 75 -year-old female with known history of hypertension, hyperlipidemia, admitted to the hospital with left facial droop and slurred speech. The patient was found to have acute cerebrovascular accident. Initial CT scan is negative for an acute cerebrovascular accident. Patient had work-up done including 2-D echo, CT angiogram and CT brain and carotid duplex have been negative so far. Otherwise, the patient initially had swelling difficulty. Today the patient able to eat her breakfast but slowly. ( ) barium swallow, speech therapy has been consulted. Patient will be getting MRI of the brain for further evaluation. Continued on Plavix at this time. Neurology is on board. Cardiology on board as well. The patient's weakness and slurred speech is improved today compared to yesterday. The patient unable to provide history. REVIEW OF SYSTEMS: CONSTITUTIONAL: No fever. No chills. No weakness. No generalized weakness. RESPIRATORY: No cough or sputum production. CARDIOVASCULAR: No chest pain or short of breath. ABDOMEN: No nausea, vomiting, abdominal pain. GENITOURINARY: Negative. NEUROLOGIC: Patient does have left-sided weakness. PSYCHIATRIC: Cooperative. ( ) negative. MUSCULOSKELETAL: Negative. SKIN: Negative. All other 14 point review of systems negative except as above. CURRENT MEDICATIONS: Reviewed. PHYSICAL EXAMINATION: 75 -year-old male lying in bed comfortably, awake, alert, oriented, x3. Appears to be in no apparent distress. VITALS: Blood pressure is 156/75, pulse is 64, respiration 18, temperature afebrile, pulse ox 98% on room air. HEENT: Atraumatic, normocephalic. Neck is supple. No JVD. CVS: S1, S2 heard. No murmurs. No gallops. LUNGS: Bilateral air entry is present. No wheezing or crackles. ABDOMEN: Soft, nontender. Bowel sounds present. TUBING MACHINE TENDER: Awake, alert, oriented times three. The patient does have left sided facial droop, improved compared to yesterday. ( ) speech improved as well. She is having left upper extremity 4 out of 5 strength. EXTREMITIES: No edema. Pulses are palpable bilaterally. No clubbing or cyanosis. PSYCHIATRIC: Cooperative. LABORATORY DATA: Reviewed. IMPRESSION: 1. Acute cerebrovascular accident with left-sided weakness and facial droop and slurred speech with possible right middle cerebral artery involvement. 2. Dysphagia, improved compared to yesterday. 3. Elevated troponin, probably uncontrolled hypertension. 4. Hypertension. 5. Hyperlipidemia. DISCUSSION AND PLAN: The patient will be continued on aspirin and Plavix. Continue with ( ) medications ( ). Further recommendations based on the clinical course.
[2016-05-06] MEDS: amLODIPine 10 MG TAB PO SCH (13:03)
--- NOTE | 2016-05-06 14:13 | P.PN ---
Subjective Principal diagnosis: CVA This is a pleasant 75-year-old female patient with a history of hypertension and hyperlipidemia. Presented to the emergency department after noticed a left facial droop as well as slurred speech. On presentation patient' s blood pressure was 252/116. According to the patient several weeks ago she noticed episodes of dizziness mostly upon standing and was having low blood pressure per her home blood pressure cuff and her Cozaar was decreased from 100 mg daily to 25 mg daily by her primary care physician. Patient underwent CT angiogram of the head and neck that showed no evidence of hemodynamically significant stenosis and no intracranial abnormalities. Computed tomography scan of the brain without contrast was negative. MRI was performed today which revealed areas of acute ischemia involving both the anterior and posterior parietal regions on the right. Punctate FLAIR lesions within the deep white matter tracts of the cerebral hemispheres also noted likely on the basis of small vessel disease. Blood pressure this morning 206/83 with a heart rate in the 60s. Patient continues to have right-sided facial droop, speech improving. CBC normal. Potassium 4.1, BUN 8, creatinine 0.6. We will add Norvasc 10 mg daily to the patient's medication regime. Objective - Vital Signs Vital signs: Vital Signs Temp 97.1 F L 05/06/16 12:00 Pulse 64 05/06/16 12:00 Resp 16 05/06/16 12:00 BP 214/91 05/06/16 12:00 Pulse Ox 99 05/06/16 12:00 Intake & Output 05/05/16 05/06/16 05/06/16 18:59 06:59 18:59 Intake Total 1565 1200 Balance 1565 1200 Weight 78.8 kg Intake: Intake, IV Titration 700 1200 Amount Sodium Chloride 0.9% 1, 700 1200 000 ml @ 100 mls/hr IV . Q10H [facility] Rx#:[id number] Oral 865 Other: Voiding Method Toilet Bedside Commode - Exam PHYSICAL EXAMINATION: HEENT: Head is atraumatic, normocephalic. Pupils equal, round. Neck is supple. There is no elevated jugular venous pressure. HEART EXAMINATION: Heart S1, S2 normal. No murmur or gallop heard. CHEST EXAMINATION: Lungs are clear to auscultation and precussion. No chest wall tenderness is noted on palpation or with deep breathing. ABDOMEN: Soft, nontender. Bowel sounds are heard. No organomegaly noted. EXTREMITIES: 2+ peripheral pulses with no evidence of peripheral edema and no calf tenderness noted. NEUROLOGIC patient is awake, alert and oriented -3. Right facial droop present . - Labs CBC & Chem 7: 05/06/16 06:19 05/06/16 06:19 Labs: Abnormal Lab Results - Last 24 Hours (Table) 05/06/16 Range/Units 06:19 Chloride 111 H (98-107) mmol/L TSH 5.370 H (0.465-4.680) mIU/L Assessment and Plan (1) Accelerated hypertension Status: Acute (2) Acute ischemic stroke Status: Acute (3) Facial droop due to stroke Status: Acute (4) Hyperlipidemia Status: Chronic (5) Hypertension Status: Chronic Plan: From cardiology's perspective, we will add Norvasc 10 mg daily to the patient's medication regime, for more optimal blood pressure control. MRI reveals areas of acute ischemia involving both the anterior and posterior parietal regions on the right. Patient will be scheduled to undergo transesophageal echocardiographic study tomorrow. The benefits were explained to the patient and the family in detail. We will also continue to monitor for any atrial fibrillation. DNP note has been reviewed, I agree with a documented findings and plan of care. Patient was seen and examined.
--- NOTE | 2016-05-06 17:00 | P.PN ---
Subjective Principal diagnosis: Stroke 75-year-old female continuing to be evaluated by the neurology service for stroke. Symptoms of left facial droop and left upper extremity weakness remain but are improving. She did fail the bedside swallowing study, but her barium swallow was normal. She denies any choking as long as she eats slowly. Speech therapy continues to work with her. Recall that her CT showed no acute intracranial abnormalities. Her MRI of the brain did show areas of acute ischemia and both the anterior and posterior parietal regions on the right , as well as deep matter punctate flare lesions which are likely due to small vessel disease. Because of the nature of these lesions she will be scheduled for transesophageal echocardiogram to rule out an embolic source. Her fasting lipid panel revealed triglycerides of 85 total cholesterol 154 and LDL of 80 and an HDL of 55. She is already on Lipitor 40 mg daily. At the time my examination she is resting comfortably in bed. Her EEG was normal Objective - Vital Signs Vital signs: Vital Signs Temp 97.1 F L 05/06/16 12:00 Pulse 64 05/06/16 12:00 Resp 16 05/06/16 12:00 BP 214/91 05/06/16 12:00 Pulse Ox 99 05/06/16 12:00 Intake & Output 05/05/16 05/06/16 05/06/16 18:59 06:59 18:59 Intake Total 1565 1200 Balance 1565 1200 Weight 78.8 kg Intake: Intake, IV Titration 700 1200 Amount Sodium Chloride 0.9% 1, 700 1200 000 ml @ 100 mls/hr IV . Q10H [facility] Rx#:[id number] Oral 865 Other: Voiding Method Toilet Bedside Commode - Constitutional General appearance: Present: average body habitus, cooperative, no acute distress - EENT Eyes: Present: PERRLA, ptosis. Absent: abnormal pupil, EOMI ENT: Present: hearing grossly normal - Neck Neck: Present: normal ROM. Absent: rigidity - Respiratory Respiratory: negative: prolonged expiration, prolonged inspiration - Neurologic Neurologic Comment(s): She is alert awake and oriented 3. Speech is mildly dysarthric but language is normal. Left facial droop remains. Strength is 5 minus out of 5 and left upper extremity otherwise full in other extremities. There is no sensory deficit. She has dysmetria on the left. - Labs CBC & Chem 7: 05/06/16 06:19 05/06/16 06:19 Labs: Abnormal Lab Results - Last 24 Hours (Table) 05/06/16 Range/Units 06:19 Chloride 111 H (98-107) mmol/L TSH 5.370 H (0.465-4.680) mIU/L Assessment and Plan (1) Left arm weakness Status: Acute (2) Dysphagia as late effect of cerebrovascular accident (CVA) Status: Acute (3) Facial droop due to stroke Status: Acute (4) Elevated troponin Status: Acute (5) Hypertension Status: Chronic (6) Hyperlipidemia Status: Chronic (7) Acute ischemic stroke Status: Acute Plan: She has suffered an acute stroke of the right middle cerebral artery distribution. She continues to have some mild swallowing problems. She will continue to work with speech therapy, physical therapy, occupational therapy. Continue neurological checks. Continue Plavix 75 mg daily and Lipitor. She will undergo her transesophageal echocardiogram tomorrow. If there is no evidence of an embolic source she would be cleared from a neurological standpoint. I have reviewed the history and physical on the above patient. I have reviewed the above note, and agree.
[2016-05-06] MEDS: ATORVASTATIN 40 MG TAB PO SCH (21:12)
[2016-05-07] MEDS: LEVOTHYROXINE 25 MCG TAB PO SCH ×2 (06:53→12:07)
--- NOTE | 2016-05-07 08:41 | EEG ---
DATE OF SERVICE: 05/06/2016 INDICATIONS FOR EXAMINATION: Stroke. AGE: 75Y DESCRIPTION OF PROCEDURE: This EEG was performed using a 21 channel digital electroencephalograph, following international 10-20 system. DESCRIPTION OF THE RECORDING: From the beginning of the tracing, with the patient's eyes closed, the background rhythm was mostly consisting of 8 Hz alpha frequency in the posterior occipital leads. No obvious asymmetry is seen. Photic stimulation was performed with a minimal driving response seen. No pathological waves were elicited. Hyperventilation was not performed. Occasional lead artifacts and rare movement artifacts were seen. The patient remains awake throughout the tracing. No epileptiform discharges were seen. Her EKG lead showed regular rate and rhythm. INTERPRETATION: This awake EEG can be considered within normal limits. There was no asymmetry seen. No epileptiform discharges were noticed. The absence of epileptiform discharges does not rule out the diagnosis of epilepsy. Therefore, clinical correlation is recommended.
--- NOTE | 2016-05-07 10:30 | PN ---
DATE OF SERVICE: 05/06/2016 Ms. Boyle is a 75-year-old female with known history of hypertension, hyperlipidemia admitted to the hospital with left facial droop and slurred speech. Initial CT scan and carotid duplex and 2-D echo have been negative. Patient had MRI of the brain done today, which showed areas of acute ischemia involving both the anterior and posterior parietal regions on the right side and punctate flair lesions within the deep white matter tracts of the cerebral hemispheres, likely on the basis of small vessel disease. Due to the type of lesions in the brain, patient is scheduled for a LORIE to rule out embolic source. Otherwise, the patient is ambulating in the hallway and patient is still having left facial droop and slurred speech. Patient did have barium swallow done and showed no evidence of aspiration. Patient is tolerating p.o. diet. No fever. No chills. No acute overnight issues. REVIEW OF SYSTEMS: CONSTITUTIONAL: No fever. No chills. RESPIRATORY: No cough or sputum production. CARDIOVASCULAR: No chest pain. No short of breath. ABDOMEN: No nausea, vomiting, or abdominal pain. GENITOURINARY: Negative. ENDOCRINE: Negative. PSYCHIATRIC: Negative. SKIN: Negative. All other 14-point review of systems negative except as above. CURRENT MEDICATIONS: Reviewed. PHYSICAL EXAMINATION: A 75-year-old female lying in the bed comfortably, awake, alert, oriented x3, appears to be in no apparent distress. VITALS: Blood pressure is 214/91, pulse is 64, respirations 16, temperature afebrile, pulse ox 99% on room air. HEENT: Atraumatic, normocephalic. Eyes, extraocular movements ( ). Patient has a left-sided facial droop and slurred speech. Neck is supple. No JVD. CVS EXAM: S1, S2 heard. No murmurs, no gallop, no rub. LUNGS: Bilateral air entry is present. No wheezing. No crackles. Nonlabored breathing. ABDOMEN: Soft, nontender. Bowel sounds present. 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 The patient ( ) 5 out of 5. EXTREMITIES: No edema. Pulses palpable bilaterally. No clubbing or cyanosis. PSYCHIATRIC: Cooperative. LABORATORY DATA: WBC is 5.6, hemoglobin 12.6, platelets 172. Sodium 142, potassium 4.1, chloride 111, bicarb is 23, BUN 8, creatinine 0.64. TSH is 5.370, free T4 1.08. LDL is 82. IMPRESSION: 1. Acute cerebrovascular accident with left-sided facial droop and slurred speech and left upper extremity weakness with MRI findings shows areas of acute ischemia involving both anterior and posterior parietal regions on the right. Patient is scheduled for LORIE to rule out embolic source. 2. Uncontrolled hypertension. The patient will be continued on losartan and Norvasc has been added. 3. Dysphagia improved. No abnormality noted in the barium swallow, tolerating p.o. diet. 4. Elevated troponin, likely uncontrolled hypertension and cerebrovascular accident. No complaints of chest pain. 5. Hypertension. 6. Hyperlipidemia. DISCUSSION AND PLAN: The patient will be continued on aspirin and Plavix. Continue with the blood pressure medication in the form of losartan and Norvasc. Cardiology and Neurology are following this patient, is scheduled for LORIE tomorrow. Further recommendations based on the clinical course.
[2016-05-07] MEDS: BENZOCAINE SPRAY 100 APPLIC/CAN MUCOUS MEM ONE ×2 (10:43→10:54)
[2016-05-07] MEDS ORDERED: SODIUM CHLORIDE 0.9% 500 ML IV ONE (10:43)
[2016-05-07] MEDS ORDERED: fentaNYL (PF) 50 MCG/ML 2 ML AMP IV ONE (10:55)
[2016-05-07] MEDS ORDERED: MIDAZOLAM 2 MG/2 ML VIAL IV ONE ×2 (10:55→10:58)
[2016-05-07] MEDS ORDERED: SODIUM CHLORIDE 0.9% 1,000 ML IV SCH (11:15)
--- NOTE | 2016-05-07 11:47 | ECHOT ---
DATE OF SERVICE: INDICATION: Evaluation left atrial appendage. Intracardiac thrombus, source. After explaining the procedure to the patient as well as the risks and complications, blood pressure, heart rate, O2 saturation was monitored. The throat was sprayed with Cetacaine. She received 50 mcg of intravenous fentanyl and 3 mg of intravenous Versed. After obtaining conscious moderate sedation state, the probe was introduced into the esophagus without difficulty. Images were obtained. Following that, the probe was removed. There were no immediate complications. FINDINGS: Left atrial size is mildly dilated. Left atrial appendage is normal. Left ventricular size and systolic function are normal. The aortic valve, mitral valve and tricuspid valve are normal. Descending thoracic aortic appears to be normal. No pericardial effusion was noted. Contrast bubble study revealed no evidence of shunting across the interatrial septum. Doppler pulse wave and color Doppler obtained and revealed moderate mitral and tricuspid regurgitation. The estimated right ventricular systolic pressure was 41 mmHg consistent with mild pulmonary hypertension. CONCLUSION: 1. Mildly dilated left atrium. 2. Normal left ventricular size and systolic function. 3. Moderate mitral and tricuspid regurgitation with mild pulmonary hypertension. 4. There was no shunting across the interatrial septum. 5. Left atrial appendage was normal.
[2016-05-07] MEDS: ASPIRIN 81 MG CHEW PO SCH (12:07)
[2016-05-07] MEDS: LOSARTAN 25 MG TAB PO SCH (12:07)
[2016-05-07] MEDS: FAMOTIDINE 20 MG/2 ML VIAL IV SCH (12:07)
[2016-05-07] MEDS: CLOPIDOGREL 75 MG TAB PO SCH (12:07)
[2016-05-07] MEDS: amLODIPine 10 MG TAB PO SCH (12:07)
[2016-05-07 12:37] VITALS: TEMP 97.2
[2016-05-07 12:38] VITALS: BP 192/86; PULSE 62; RESP 20
--- NOTE | 2016-05-08 06:19 | DS ---
DATE OF ADMISSION: 05/03/2016 DATE OF DISCHARGE: 05/07/2016 Patient is a 75-year-old admitted secondary to left facial droop and found to have stroke in the middle cerebral artery territory. There are multiple areas of involvement. There was concern about embolic stroke, because of which patient underwent a LORIE, which is essentially within normal limits. Patient will need outpatient speech therapy. Patient still has some facial droop, left-sided facial droop, and weakness in the left hand. Beyond which, patient is otherwise clinically doing well and will be discharged today. Patient will continue with her simvastatin. Her LDL was 82. Patient was started on Plavix and patient will follow with Dr. Brayan Long on the 10 of May at 9:30 a.m. and will follow with Dr. Nikolay Irizarry in about a week. Patient was seen and examined on the day of discharge. Vitals are stable. PHYSICAL EXAMINATION: GENERAL: The patient is alert and oriented x3, not in any acute distress. Well developed, well nourished. HEENT: Pupils are round and equally reacting to light. EOMI. No scleral icterus. No conjunctival pallor. Normocephalic, atraumatic. No pharyngeal erythema. No thyromegaly. CARDIOVASCULAR: S1 and S2 present. No murmurs, rubs, or gallops. PULMONARY: Chest is clear to auscultation, no wheezing or crackles. ABDOMEN: Soft, nontender, nondistended, normoactive bowel sounds. No palpable organomegaly. MUSCULOSKELETAL: No joint swelling or deformity. EXTREMITIES: No cyanosis, clubbing, or pedal edema. NEUROLOGICAL: As mentioned above. SKIN: No rashes. ASSESSMENT AND PLAN: 1. Acute cerebrovascular accident with left-sided facial droop and left arm weakness. Patient has acute ischemia involving the right anterior posterior parietal lobes ischemic in nature, ruled out possibly thrombotic. 2. Uncontrolled hypertension. Patient losartan dose will be increased. Norvasc will not be continued. 3. Dysphagia, which is improving, and patient is tolerating p.o. diet, ( ) referred to speech therapy for further details. 4. Mildly elevated troponin, ruled out acute coronary artery syndrome, probably related to demand ischemia because of elevated blood pressure. 5. Accelerated, uncontrolled essential hypertension. 6. Hyperlipidemia. Please refer to my depart summary for further details of discharge medications. DISCHARGE DIET: Cardiac. Activity as tolerated. Followups as mentioned above. Spent greater than 35 minutes in total discharge process.
== END 2016-05-07 14:49 | disposition home or self-care (01) | DRG 65 ==
LOC: EC 20:00 → 6SEL 21:56
PROVIDERS: ADMIT Internal Medicine; ATTEND Internal Medicine
PROC: B245ZZ4 Ultrasonography of Left Heart, Transesophageal (ICD-10-PCS; principal; 2016-05-07 10:35)
DX: I63.511 Cerebral infarction due to unspecified occlusion or stenosis of right middle cerebral artery (principal); G81.94 Hemiplegia, unspecified affecting left nondominant side; I10 Essential (primary) hypertension; R13.10 Dysphagia, unspecified; R29.810 Facial weakness; R29.703 NIHSS score 3; E78.5 Hyperlipidemia, unspecified; R47.1 Dysarthria and anarthria; I73.9 Peripheral vascular disease, unspecified; Z79.899 Other long term (current) drug therapy
CPT/HCPCS: 36415; 70450; 70496; 70498; 70551; 71010; 74230; 80048; 80053; 80061; 82550; 82553; 83090; 84439; 84443; 84484; 85025; 85610; 85730; 93005; 93306; 93312; 93320; 93325; 93880; 95819; 99291

== ENCOUNTER 2018-10-27 17:48 | Emergency (ER) | payer MEDICARE ==
[2018-10-27] MEDS ORDERED: SODIUM CHLORIDE 0.9% 500 ML 500 ML IV STA (17:51)
[2018-10-27 18:10] VITALS: TEMP 97.9
[2018-10-27] MEDS ORDERED: Alteplase PER PHARMACY Stroke 1 EACH MISC MISCELLANE PRN (18:11)
--- NOTE | 2018-10-27 18:12 | ED ---
General Adult HPI - General Stated complaint: POSS CVA Time Seen by Provider: 10/27/18 17:48 Source: RN notes reviewed - History of Present Illness Initial comments: This is a 78-year-old female who presents to the emergency department with strokelike symptoms. Patient was last seen normal at 4 PM. Back and she had left-sided facial droop left-sided weakness of the arm and leg and per EMS he thought the patient also had slurred speech. Patient is alert and oriented 3 however she's unaware that she cannot move her left side. Patient denies any injury or trauma. Patient states she had a previous stroke about a year ago. She did have a little residual deficit of the left side. Patient states she has a mild headache at this point. Patient denies any chest pain or difficulty breathing shortest breath. - Related Data Home Medications Medication Instructions Recorded Confirmed Famotidine [Pepcid] 20 mg PO DAILY 05/04/16 05/04/16 Simvastatin [Zocor] 40 mg PO DAILY 05/04/16 05/04/16 Previous Rx's Medication Instructions Recorded Clopidogrel Bisulfate [Plavix] 75 mg PO DAILY #30 tab 05/07/16 Levothyroxine Sodium [Synthroid] 50 mcg PO DAILY #0 05/07/16 Losartan [Cozaar] 100 mg PO DAILY #30 tab 05/07/16 Allergies Allergy/AdvReac Type Severity Reaction Status Date / Time No Known Allergies Allergy Verified 10/27/18 18:38 Review of Systems ROS Statement: Those systems with pertinent positive or pertinent negative responses have been documented in the HPI. ROS Other: All systems not noted in ROS Statement are negative. Past Medical History Past Medical History: Hyperlipidemia, Hypertension History of Any Multi-Drug Resistant Organisms: None Reported Additional Past Surgical History / Comment(s): rotator cuff surgery Past Anesthesia/Blood Transfusion Reactions: No Reported Reaction Past Psychological History: No Psychological Hx Reported Smoking Status: Never smoker Past Alcohol Use History: Occasional Past Drug Use History: None Reported - Past Family History Mother Family Medical History: Coronary Artery Disease (CAD), Hyperlipidemia, Hypertension, Myocardial Infarction ([place]) General Exam - General Exam Comments Initial Comments: GENERAL: Patient is well-developed and well-nourished. Patient is nontoxic and well- hydrated and is in mild distress. ENT: Neck is soft and supple. No significant lymphadenopathy is noted. Oropharynx is clear. Moist mucous membranes. Neck has full range of motion without eliciting any pain. EYES: The sclera were anicteric and conjunctiva were pink and moist. Extraocular movements were intact and pupils were equal round and reactive to light. Eyelids were unremarkable. PULMONARY: Unlabored respirations. Good breath sounds bilaterally. No audible rales rhonchi or wheezing was noted. CARDIOVASCULAR There is a regular rate and rhythm without any murmurs gallops or rubs. ABDOMEN: Soft and nontender with normal bowel sounds. No palpable organomegaly was noted. There is no palpable pulsatile mass. SKIN: Skin is clear with no lesions or rashes and otherwise unremarkable. NEUROLOGIC: Patient is alert and oriented x3. She has significant facial droop on the left and appears to have some lateral palsy in the right eye. Patient also has complete paralysis of the right arm and the right leg. NIH 19 MUSCULOSKELETAL: Patient has no midline of the left arm or leg. LYMPHATICS: No significant lymphadenopathy is noted PSYCHIATRIC: Normal psychiatric evaluation. Course Vital Signs 10/27/18 10/27/18 18:06 18:29 Temperature 97.9 F Pulse Rate 64 60 Respiratory 18 17 Rate Blood Pressure 214/99 186/82 O2 Sat by Pulse 98 97 Oximetry Medical Decision Making - Medical Decision Making I spoke with Dr. Bell he wanted TPA given after the blood pressure came down which it did with [address] of the brain showed no acute bleed however it did show probable right middle cerebral artery occlusion. Neurointerventionalist agreed with this and wanted the patient transferred [facility] for intervention after TPA was given. 2. TPA was given here. I spoke with [facility] ER and they agreed to take the patient and we transferred the patient to [facility] EKG showed normal sinus rhythm at 60 bpm NH interval is 178 QRS is 78 QT interval 4:30 QTC is 438. Patient's EKG shows no ST segment elevation or depression or T wave abnormalities are noted. Critical Care Time Critical Care Time: Yes Total Critical Care Time: 35 Disposition Clinical Impression: Cerebrovascular accident (CVA) Disposition: OTHER INSTITUTION NOT DEFINED Referrals: Aldo Long MD [Primary Care Provider] - 1-2 days Time of Disposition: 18:37 - Out of Hospital Transfer - Req. Specs Out of Hospital Transfer - Requested Specifics: Other Emergency Center ([facility])
[2018-10-27] MEDS ORDERED: LABETALOL 5 MG/ML VIAL MDV IVP STA ×2 (18:15→18:32)
[2018-10-27] MEDS ORDERED: ALTEPLASE BOLUS 7 MG in EMPTY SYRINGE 1 SYR IV STA (18:15)
[2018-10-27] MEDS ORDERED: ALTEPLASE 63 MG in EMPTY BAG 1 BAG IV STA (18:15)
--- NOTE | 2018-10-27 18:17 | CT ---
EXAMINATION TYPE: CT brain wo con for TPA DATE OF EXAM: 10/27/2018 COMPARISON: 05/03/2016 HISTORY: Sudden onset weakness. History of prior CVA. CT DLP: mGycm Automated exposure control for dose reduction was used. FINDINGS: There is mild cerebral cortical atrophy. There is no mass effect nor midline shift. There is no evide nce of intracranial hemorrhage. There is some high attenuation along the area of the proximal right m iddle cerebral artery. There is 3 x 1 cm area of decreased density in the right posterior parietal lo be cortex. There is a second linear 3 x 1 cm area of hypodensity in the right anterior parietal lobe cortex. The calvarium is intact. IMPRESSION: THERE IS OLD RIGHT PARIETAL CORTICAL 2 AREAS OF INFARCT. No hemorrhage. Increased density right middl e cerebral artery raises the possibility of acute thrombosis. Is there suspicion of an acute right te mporal lobe infarct?
[2018-10-27 18:30] VITALS: RESP 17
--- NOTE | 2018-10-27 18:38 | CT ---
EXAMINATION TYPE: CT angio head neck DATE OF EXAM: 10/27/2018 HISTORY: Sudden onset weakness, history of prior CVA. COMPARISON: 05/03/2016 CT DLP: 1670.9 mGycm. Automated Exposure Control for Dose Reduction was Utilized. TECHNIQUE: CTA scan of the and brain is performed with IV Contrast, patient injected with 65 mL of I sovue 370, axial images are obtained, coronal and sagittal reformatted images are reviewed. Three-D r econstructed images are created on an independent workstation and reviewed. FINDINGS: There is normal branching pattern of the great vessels on the aortic arch. Left vertebral artery has separate origin on the aortic arch. There is bilateral arterial flow in the subclavian arteries. Ther e is bilateral arterial flow in the vertebral arteries. Right vertebral artery is larger than the lef t. There is flow in the vertebrobasilar artery system. There is bilateral patency of the common inter nal and external carotid arteries. There is mild plaque at the carotid artery bifurcations and 20% st enosis of the proximal internal carotid arteries bilaterally. There is no evidence of carotid or vert ebral artery aneurysm or dissection. There is no demonstrated flow in the branches of the right middle cerebral artery. There is only renay rial flow in the most proximal right middle cerebral artery. There is normal contrast opacification o f the venous sinuses. There is arterial flow in the anterior and posterior cerebral arteries bilatera lly. There is normal appearance of the left middle cerebral artery.. I see no evidence of intracrania l aneurysm or neovascularity. IMPRESSION: There is thrombosis of the right middle cerebral artery which is a change compared to old exam. Minimal plaque at the carotid artery bifurcations without evidence of hemodynamic stenosis.
[2018-10-27 18:53] VITALS: BP 184/84; PULSE 56
--- NOTE | 2018-10-27 18:56 | XR ---
EXAMINATION TYPE: XR chest 1V portable DATE OF EXAM: 10/27/2018 COMPARISON: NONE HISTORY: Weakness TECHNIQUE: Single frontal view of the chest is obtained. FINDINGS: There is no heart failure nor confluent pneumonic infiltrate. Costophrenic angles are gracie r. There are chest leads. IMPRESSION: No active cardiopulmonary disease. No significant change.
[2018-10-27] MEDS ORDERED: SODIUM CHLORIDE 0.9% 50 ML MINI-BAG IV ONE (19:12)
[2018-10-28 08:21] LABS: INR 0.9 (<1.2); Partial Thromboplastin Time 23.1 sec (22.0-30.0)
[2018-10-28 08:22] LABS: Creatine Kinase 34 U/L (30-135); Creatine Kinase MB <0.2 ng/mL (0.0-2.4); Troponin I <0.012 ng/mL (0.000-0.034)
[2018-10-28 08:33] LABS: Basophils % (A) 0 %; Eosinophils # (A) 0.3 k/uL (0-0.7); Eosinophils % (A) 3 %; HCT 36.4 % (34.0-46.0); HGB 12.4 gm/dL (11.4-16.0); Lymphocytes # (A) 1.2 k/uL (1.0-4.8); Lymphocytes % (A) 12 %; MCH 31.8 pg (25.0-35.0); MCHC 34.2 g/dL (31.0-37.0); Mean Platelet Volume 7.6; Monocytes # (A) 0.4 k/uL (0-1.0); Monocytes % (A) 4 %; Neutrophils # (A) 7.4 k/uL (1.3-7.7); Neutrophils % (A) 79 %; Platelet Count 205 k/uL (150-450); RBC 3.91 m/uL (3.80-5.40); RDW 13.9 % (11.5-15.5); WBC 9.4 k/uL (3.8-10.6)
[2018-10-28 08:41] LABS: ALT 17 U/L (9-52); AST 19 U/L (14-36); African American GFR (CKD) >90 (>60 ml/min/1.73 sqM); Albumin 3.3 g/dL (3.5-5.0); Alkaline Phosphatase 56 U/L (38-126); Anion Gap 10 mmol/L; Blood Urea Nitrogen 16 mg/dL (7-17); Calcium 8.6 mg/dL (8.4-10.2); Carbon Dioxide 23 mmol/L (22-30); Chloride 102 mmol/L (98-107); Glucose 91 mg/dL (74-99); Potassium 4.1 mmol/L (3.5-5.1); Sodium 135 mmol/L (137-145); Total Bilirubin 0.2 mg/dL (0.2-1.3); Total Protein 5.8 g/dL (6.3-8.2)
== END 2018-10-27 18:59 | disposition other institution (70) ==
LOC: EC 17:48
DX: I63.9 Cerebral infarction, unspecified (principal); R29.719 NIHSS score 19; E78.5 Hyperlipidemia, unspecified; I10 Essential (primary) hypertension; Z79.899 Other long term (current) drug therapy
CPT/HCPCS: 36415; 80053; 82550; 82553; 84484; 85025; 85610; 85730; 71045; 70496; 70450; 70498; 99291; 37195; 96360; J2997; Q9967

== ENCOUNTER 2019-01-30 14:06 | Emergency (ER) | payer MEDICARE ==
[2019-01-30 14:18] VITALS: RESP 18
--- NOTE | 2019-01-30 14:18 | ED ---
General Adult HPI - General Stated complaint: Weakness Time Seen by Provider: 01/30/19 14:08 Source: patient, EMS, RN notes reviewed Mode of arrival: EMS Limitations: no limitations - History of Present Illness Initial comments: Patient is a pleasant 78-year-old female presenting to the emergency Department with complaints of dizziness. Onset of symptoms was yesterday. Patient feels dizzy and off balance. Symptoms worsen with upright position and movement. No headache. Patient states both her legs feel weak and she is having difficult time walking. No isolated area of weakness that is new. Patient does have history of previous stroke and does have residual left-sided facial weakness as well as some minimal left arm symptoms. No confusion or nausea. Dizziness is described as a spinning type sensation. Patient does take Eliquis secondary to history of atrial fibrillation. - Related Data Home Medications Medication Instructions Recorded Confirmed Famotidine [Pepcid] 20 mg PO HS 05/04/16 10/27/18 Simvastatin [Zocor] 40 mg PO DAILY 05/04/16 10/27/18 Aspirin EC [Ecotrin Low Dose] 81 mg PO DAILY 10/27/18 10/27/18 Losartan [Cozaar] 25 mg PO BID 10/27/18 10/27/18 Previous Rx's Medication Instructions Recorded Clopidogrel Bisulfate [Plavix] 75 mg PO DAILY #30 tab 05/07/16 Levothyroxine Sodium [Synthroid] 50 mcg PO DAILY #0 05/07/16 Allergies Allergy/AdvReac Type Severity Reaction Status Date / Time No Known Allergies Allergy Verified 01/30/19 14:09 Review of Systems ROS Statement: Those systems with pertinent positive or pertinent negative responses have been documented in the HPI. ROS Other: All systems not noted in ROS Statement are negative. Constitutional: Denies: fever Eyes: Denies: eye pain ENT: Denies: ear pain Respiratory: Denies: dyspnea Cardiovascular: Denies: chest pain Endocrine: Denies: fatigue Gastrointestinal: Denies: abdominal pain Genitourinary: Denies: dysuria Musculoskeletal: Denies: back pain Skin: Denies: as per HPI Neurological: Reports: as per HPI, vertigo. Denies: headache, confusion Past Medical History Past Medical History: Hyperlipidemia, Hypertension History of Any Multi-Drug Resistant Organisms: None Reported Additional Past Surgical History / Comment(s): rotator cuff surgery Past Anesthesia/Blood Transfusion Reactions: No Reported Reaction Past Psychological History: No Psychological Hx Reported Smoking Status: Never smoker Past Alcohol Use History: Occasional Past Drug Use History: None Reported - Past Family History Mother Family Medical History: Coronary Artery Disease (CAD), Hyperlipidemia, Hypertension, Myocardial Infarction ([place]) General Exam Limitations: no limitations General appearance: alert, in no apparent distress Head exam: Present: normocephalic Eye exam: Present: normal appearance, PERRL, EOMI, nystagmus ENT exam: Present: normal oropharynx Neck exam: Present: normal inspection Respiratory exam: Present: normal lung sounds bilaterally Cardiovascular Exam: Present: tachycardia, irregular rhythm GI/Abdominal exam: Present: soft. Absent: tenderness Extremities exam: Present: normal inspection Neurological exam: Present: alert, CN II-XII intact (Except for left facial weakness) Expanded Neurological exam: Present: other (Left sided Facial weakness which patient states is chronic and unchanged) Sensory exam: Upper Extremity Light Touch: Normal, Lower Extremity Light Touch: Normal Motor strength exam: RUE: 5, LUE: 4 (Minimal weakness patient states is also chronic), RLE: 5, LLE: 5 Eye Response: (4) open spontaneously Motor Response: (6) obeys commands Verbal Response: (5) oriented Psychiatric exam: Present: normal affect, normal mood Skin exam: Present: normal color Course Vital Signs 01/30/19 01/30/19 14:09 15:17 Temperature 97.6 F Pulse Rate 88 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 QRS 68. QT 304. QTC 440. Normal axis. Normal QRS. No acute ST change. Medical Decision Making - Medical Decision Making Patient reevaluated and resting comfortably in bed. Patient states symptoms are somewhat improved. Patient still has nystagmus on exam. Case was discussed in detail with Dr. Horn who agrees with transfer to [facility]. He does request CTA first and patient is having that exam done at this time. Patient does have intermittent RVR. Heart rate has been varying from upper 80s through 150. Patient will be started on low-dose Cardizem drip. - Lab Data Result diagrams: 01/30/19 14:35 01/30/19 14:35 Lab Results 01/30/19 01/30/19 01/30/19 Range/Units 14:35 14:35 14:35 WBC 5.8 (3.8-10.6) k/uL RBC 4.57 (3.80-5.40) m/uL Hgb 14.4 (11.4-16.0) gm/dL Hct 43.3 (34.0-46.0) % MCV 94.8 (80.0-100.0) fL MCH 31.5 (25.0-35.0) pg MCHC 33.3 (31.0-37.0) g/dL RDW 12.5 (11.5-15.5) % Plt Count 259 (150-450) k/uL Neutrophils % 66 % Lymphocytes % 23 % Monocytes % 8 % Eosinophils % 1 % Basophils % 1 % Neutrophils # 3.8 (1.3-7.7) k/uL Lymphocytes # 1.4 (1.0-4.8) k/uL Monocytes # 0.5 (0-1.0) k/uL Eosinophils # 0.0 (0-0.7) k/uL Basophils # 0.0 (0-0.2) k/uL PT 10.0 (9.0-12.0) sec INR 0.9 (<1.2) APTT 22.9 (22.0-30.0) sec Sodium 136 L (137-145) mmol/L Potassium 3.9 (3.5-5.1) mmol/L Chloride 102 (98-107) mmol/L Carbon Dioxide 25 (22-30) mmol/L Anion Gap 9 mmol/L BUN 13 (7-17) mg/dL Creatinine 0.76 (0.52-1.04) mg/dL Est GFR (CKD-EPI)AfAm 88 (>60 ml/min/1.73 sqM) Est GFR (CKD-EPI)NonAf 76 (>60 ml/min/1.73 sqM) Glucose 79 (74-99) mg/dL Calcium 9.4 (8.4-10.2) mg/dL Total Bilirubin 0.5 (0.2-1.3) mg/dL AST 24 (14-36) U/L ALT 8 (4-34) U/L Alkaline Phosphatase 60 (38-126) U/L Total Protein 6.8 (6.3-8.2) g/dL Albumin 3.9 (3.5-5.0) g/dL Urine Color Urine Appearance (Clear) Urine pH (5.0-8.0) Ur Specific [place] (1.001-1.035) Urine Protein (Negative) Urine Glucose (UA) (Negative) Urine Ketones (Negative) Urine Blood (Negative) Urine Nitrite (Negative) Urine Bilirubin (Negative) Urine Urobilinogen (<2.0) mg/dL Ur Leukocyte Esterase (Negative) Urine WBC (0-5) /hpf Ur Squamous Epith Cells (0-4) /hpf Urine Bacteria (None) /hpf Urine Mucus (None) /hpf 01/30/19 Range/Units 14:35 WBC (3.8-10.6) k/uL RBC (3.80-5.40) m/uL Hgb (11.4-16.0) gm/dL Hct (34.0-46.0) % MCV (80.0-100.0) fL MCH (25.0-35.0) pg MCHC (31.0-37.0) g/dL RDW (11.5-15.5) % Plt Count (150-450) k/uL Neutrophils % % Lymphocytes % % Monocytes % % Eosinophils % % Basophils % % Neutrophils # (1.3-7.7) k/uL Lymphocytes # (1.0-4.8) k/uL Monocytes # (0-1.0) k/uL Eosinophils # (0-0.7) k/uL Basophils # (0-0.2) k/uL PT (9.0-12.0) sec INR (<1.2) APTT (22.0-30.0) sec Sodium (137-145) mmol/L Potassium (3.5-5.1) mmol/L Chloride (98-107) mmol/L Carbon Dioxide (22-30) mmol/L Anion Gap mmol/L BUN (7-17) mg/dL Creatinine (0.52-1.04) mg/dL Est GFR (CKD-EPI)AfAm (>60 ml/min/1.73 sqM) Est GFR (CKD-EPI)NonAf (>60 ml/min/1.73 sqM) Glucose (74-99) mg/dL Calcium (8.4-10.2) mg/dL Total Bilirubin (0.2-1.3) mg/dL AST (14-36) U/L ALT (4-34) U/L Alkaline Phosphatase (38-126) U/L Total Protein (6.3-8.2) g/dL Albumin (3.5-5.0) g/dL Urine Color Yellow Urine Appearance Clear (Clear) Urine pH 7.5 (5.0-8.0) Ur Specific [place] 1.011 (1.001-1.035) Urine Protein Negative (Negative) Urine Glucose (UA) Negative (Negative) Urine Ketones Negative (Negative) Urine Blood Negative (Negative) Urine Nitrite Negative (Negative) Urine Bilirubin Negative (Negative) Urine Urobilinogen <2.0 (<2.0) mg/dL Ur Leukocyte Esterase Large H (Negative) Urine WBC 26 H (0-5) /hpf Ur Squamous Epith Cells 2 (0-4) /hpf Urine Bacteria Few H (None) /hpf Urine Mucus Few H (None) /hpf - Radiology Data Radiology results: report reviewed (Computed tomography scan of the brain shows chronic right middle cerebral artery infarct.), image reviewed (Chest x-ray shows no acute process) Critical Care Time Critical Care Time: Yes Total Critical Care Time: 31 Disposition Clinical Impression: Balance disorder, Atrial fibrillation with RVR Disposition: OTHER INSTITUTION NOT DEFINED Is patient prescribed a controlled substance at d/c from ED?: No Referrals: Aldo Long MD [Primary Care Provider] - 1-2 days Time of Disposition: 17:03 - Out of Hospital Transfer - Req. Specs Out of Hospital Transfer - Requested Specifics: Other Emergency Center
[2019-01-30] MEDS ORDERED: SODIUM CHLORIDE 0.9% 1,000 ML IV STA (14:50)
[2019-01-30] MEDS ORDERED: METOCLOPRAMIDE 5 MG/ML 2 ML VIAL IVP STA (14:51)
[2019-01-30] MEDS ORDERED: MECLIZINE 12.5 MG TAB PO STA (14:51)
[2019-01-30 15:21] LABS: Basophils % (A) 1 %; Eosinophils % (A) 1 %; HCT 43.3 % (34.0-46.0); HGB 14.4 gm/dL (11.4-16.0); Lymphocytes # (A) 1.4 k/uL (1.0-4.8); Lymphocytes % (A) 23 %; MCH 31.5 pg (25.0-35.0); MCHC 33.3 g/dL (31.0-37.0); MCV 94.8 fL (80.0-100.0); Monocytes # (A) 0.5 k/uL (0-1.0); Monocytes % (A) 8 %; Neutrophils # (A) 3.8 k/uL (1.3-7.7); Neutrophils % (A) 66 %; Platelet Count 259 k/uL (150-450); RBC 4.57 m/uL (3.80-5.40); RDW 12.5 % (11.5-15.5); WBC 5.8 k/uL (3.8-10.6)
[2019-01-30 15:24] LABS: Appearance,Urine Clear (Clear); Bacteria,Urine Few /hpf; Bilirubin,Urine Negative (Negative); Blood,Urine Negative (Negative); Color,Urine Yellow; Glucose,Urine (UA) Negative (Negative); Ketones,Urine Negative (Negative); Leukocyte Esterase,Urine Large (Negative); Mucus,Urine Few /hpf; Nitrite,Urine Negative (Negative); PH, Urine 7.5 (5.0-8.0); Protein,Urine Negative (Negative); Specific Gravity,Urine 1.011 (1.001-1.035); Squamous Epithelial Cell,Urine 2 /hpf (0-4); Urobilinogen,Urine <2.0 mg/dL (<2.0); WBC,Urine 26 /hpf (0-5)
[2019-01-30 15:29] LABS: Albumin 3.9 g/dL (3.5-5.0); Calcium 9.4 mg/dL (8.4-10.2); Potassium 3.9 mmol/L (3.5-5.1); Total Bilirubin 0.5 mg/dL (0.2-1.3); Total Protein 6.8 g/dL (6.3-8.2)
[2019-01-30 15:38] LABS: INR 0.9 (<1.2); Partial Thromboplastin Time 22.9 sec (22.0-30.0)
--- NOTE | 2019-01-30 16:00 | CT ---
EXAMINATION TYPE: CT brain wo con DATE OF EXAM: 01/30/2019 COMPARISON: CT brain dated 10/27/2018 HISTORY: Weakness, dizziness. CT DLP: 1106.4 mGycm Automated exposure control for dose reduction was used. Head CT performed using departmental protocol FINDINGS: The right middle cerebral artery infarct has is evolved in the interval, encephalomalacia is present along the distribution of the right middle cerebral artery. There is no evident hemorrhage or hydroce phalus. The calvarium is intact. Paranasal sinuses and mastoid air cells as visualized are unremarkab le. IMPRESSION: CHRONIC RIGHT MIDDLE CEREBRAL ARTERY INFARCT.
--- NOTE | 2019-01-30 16:02 | XR ---
EXAMINATION TYPE: XR chest 2V DATE OF EXAM: 01/30/2019 COMPARISON: Prior chest x-ray 10/27/2018 HISTORY: Weakness, dizziness and heart palpitations TECHNIQUE: Frontal and lateral views of the chest are obtained. FINDINGS: There is no focal air space opacity, pleural effusion, or pneumothorax seen. The cardiac silhouette size is within normal limits. The osseous structures are intact. There are overlying car diac leads. IMPRESSION: No acute cardiopulmonary process.
[2019-01-30 17:04] VITALS: TEMP 97.7
[2019-01-30] MEDS ORDERED: cefTRIAXone IN SWFI 1,000 MG/10 ML SYRINGE IVP STA (17:09)
[2019-01-30] MEDS ORDERED: DILTIAZEM 125 MG in SODIUM CHLORIDE 0.9% 100 ML IV SCH (17:30)
[2019-01-30 17:32] VITALS: BP 110/95; PULSE 112
--- NOTE | 2019-01-30 17:46 | CT ---
EXAMINATION TYPE: CT angio head neck DATE OF EXAM: 01/30/2019 HISTORY: Dizziness. History of stroke. COMPARISON: CT angiogram head and neck 10/27/2018 CT DLP: 438.9 mGycm. Automated Exposure Control for Dose Reduction was Utilized. TECHNIQUE: CTA scan of the neck is performed with IV Contrast, patient injected with 65 mL of Isovue 370, axial images are obtained, coronal and sagittal reformatted images are reviewed. Three-D recons tructed images are created on an independent workstation and reviewed. FINDINGS: Carotid/Vascular Structures: 4 super aortic branch vessels. Transverse aorta is patent. The left and right common carotid, left and right subclavian, innominate, left and right vertebral arteries are pa tent, right vertebral artery is dominant. No evident stenosis of the proximal internal carotid arteri es. Anterior and posterior cerebral vasculature is patent. The middle cerebral artery on the right blake s recanalized. Some cortical perfusion noted over the distribution of the middle cerebral artery on t he right. No evident embolus, aneurysm, or dissection. Other: Symptom amalgam causes some streak artifact which may limit sensitivity. IMPRESSION: Previously identified right middle cerebral artery infarct. Recanalized right middle cere bral artery.
== END 2019-01-30 18:00 | disposition other institution (70) ==
LOC: EC 14:06
DX: I48.91 Unspecified atrial fibrillation (principal); R26.89 Other abnormalities of gait and mobility; H55.00 Unspecified nystagmus; I10 Essential (primary) hypertension; E78.5 Hyperlipidemia, unspecified; I69.992 Facial weakness following unspecified cerebrovascular disease; Z79.82 Long term (current) use of aspirin; Z79.899 Other long term (current) drug therapy
CPT/HCPCS: 99291; 96374; 96375 ×2; 96361 ×2; 36415; 93005; 80053; 85025; 85610; 85730; 81001; 87086; 71046; 70496; 70450; 70498; J2765; J0696; Q9967

== ENCOUNTER 2019-08-25 09:10 | Observation (INO) | payer MEDICARE ==
[2019-08-25] MEDS ORDERED: SODIUM CHLORIDE 0.9% 500 ML 500 ML IV ONE (09:28)
--- NOTE | 2019-08-25 10:02 | ED ---
General Adult HPI - General Chief complaint: Altered Mental Status Stated complaint: AMS Time Seen by Provider: 08/25/19 09:10 Source: patient, RN notes reviewed, old records reviewed Mode of arrival: EMS Limitations: no limitations - History of Present Illness Initial comments: This is a 79-year-old female presents emergency Department via ambulance from home. states 3 days ago she had an episode of expressive aphasia and lasts about an hour patient had another one 2 days ago that lasted also about an hour. states she has had multiple strokes in the past history of A. fib and is on eliquis. states yesterday for most of the day the patient thought there were other people in her house and other animals in her house that weren't truly not there. states she was up to the early hours of the morning telling her that there are people in house and he continued to believe that today. Patient currently believes that she did see people in her house as well as animals her house and she just a while there but she hopes to find out later today when she talks to her son. Patient denies any headache patient denies any chest pain patient denies any palpitations or difficulty breathing. Patient denies any recent fever chills or cough per patient denies any abdominal pain patient denies nausea vomiting diarrhea. Patient denies any recent trauma. - Related Data Home Medications Medication Instructions Recorded Confirmed Famotidine [Pepcid] 20 mg PO DAILY@199905/04/16 08/25/19 Apixaban [Eliquis] 5 mg PO BID@0801/30/19 08/25/19 ALPRAZolam [Xanax] 0.25 mg PO DAILY PRN 08/25/19 08/25/19 Levothyroxine Sodium [Synthroid] 50 mcg PO DAILY@79908/25/19 08/25/19 Losartan Potassium [Cozaar] 25 mg PO DAILY@79908/25/19 08/25/19 Losartan [Cozaar] 25 mg PO DAILY@79908/25/19 08/25/19 Pravastatin Sodium [Pravachol] 20 mg PO HS@0 08/25/19 08/25/19 Allergies Allergy/AdvReac Type Severity Reaction Status Date / Time No Known Allergies Allergy Verified 08/25/19 10:33 Review of Systems ROS Statement: Those systems with pertinent positive or pertinent negative responses have been documented in the HPI. ROS Other: All systems not noted in ROS Statement are negative. Past Medical History Past Medical History: Hyperlipidemia, Hypertension Additional Past Medical History / Comment(s): 3 CVA (2017, 2018, 2019; deficits LT arm, LT sided droop) History of Any Multi-Drug Resistant Organisms: None Reported Past Surgical History: Hysterectomy Additional Past Surgical History / Comment(s): rotator cuff surgery Past Anesthesia/Blood Transfusion Reactions: No Reported Reaction Past Psychological History: No Psychological Hx Reported Smoking Status: Never smoker Past Alcohol Use History: Occasional Past Drug Use History: None Reported - Past Family History Mother Family Medical History: Coronary Artery Disease (CAD), Hyperlipidemia, Hypertension, Myocardial Infarction ([place]) General Exam - General Exam Comments Initial Comments: GENERAL: Patient is well-developed and well-nourished. Patient is nontoxic and well- hydrated and is in no acute distress. ENT: Neck is soft and supple. No significant lymphadenopathy is noted. Oropharynx is clear. Moist mucous membranes. Neck has full range of motion without eliciting any pain. There is no thyroid enlargement and no masses were felt. EYES: The sclera were anicteric and conjunctiva were pink and moist. Extraocular movements were intact and pupils were equal round and reactive to light. Eyelids were unremarkable. PULMONARY: Unlabored respirations. Good breath sounds bilaterally. No audible rales rhonchi or wheezing was noted. CARDIOVASCULAR: There is a regular rate and rhythm without any murmurs gallops or rubs. Femoral pulses are equal bilaterally ABDOMEN: Soft and nontender with normal bowel sounds. No palpable organomegaly was noted. There is no palpable pulsatile mass. SKIN: Skin is clear with no lesions or rashes and otherwise unremarkable. NEUROLOGIC: Patient is alert and oriented x3. Cranial nerves II through XII are grossly intact. Motor and sensory are also intact. Normal speech, volume and content. Symmetrical smile. Cerebellar exam grossly intact. MUSCULOSKELETAL: Normal extremities with adequate strength and full range of motion. No lower extremity swelling or edema. No calf tenderness. LYMPHATICS: No significant lymphadenopathy is noted PSYCHIATRIC: Patient is alert and oriented 4 but she is insistent that people were in her house last night as well as having multiple animals her house that were not hers. Limitations: no limitations Course Vital Signs 08/25/19 08/25/19 08/25/19 09:29 11:00 11:33 Temperature 98.4 F Pulse Rate 60 65 60 Respiratory 16 24 18 Rate Blood Pressure 156/87 156/87 201/90 O2 Sat by Pulse 97 99 98 Oximetry 08/25/19 08/25/19 08/25/19 11:56 12:12 12:30 Temperature Pulse Rate 58 L 75 Respiratory 16 Rate Blood Pressure 202/95 206/92 127/58 O2 Sat by Pulse 98 Oximetry Medical Decision Making - Medical Decision Making EKG shows normal sinus rhythm at 60 bpm KS interval 282 QRS is 72 QTC is 426 QTC is 426. Patient's EKG shows no ST segment elevation or depression. CT of the brain shows no acute abnormality. CTA of the head and neck showed no acute abnormality. Patient is still delusional and think she saw people in her house at this point. I spoke with Dr. Allen he wanted the patient admitted in 1 and neurology consult as well as a psychiatric consult. - Lab Data Result diagrams: 08/25/19 10:00 08/25/19 10:00 Lab Results 08/25/19 08/25/19 08/25/19 Range/Units 10:00 10:00 10:00 WBC 5.4 (3.8-10.6) k/uL RBC 4.45 (3.80-5.40) m/uL Hgb 13.7 (11.4-16.0) gm/dL Hct 42.5 (34.0-46.0) % MCV 95.4 (80.0-100.0) fL MCH 30.9 (25.0-35.0) pg MCHC 32.4 (31.0-37.0) g/dL RDW 12.6 (11.5-15.5) % Plt Count 264 (150-450) k/uL Neutrophils % 69 % Lymphocytes % 21 % Monocytes % 6 % Eosinophils % 2 % Basophils % 1 % Neutrophils # 3.7 (1.3-7.7) k/uL Lymphocytes # 1.1 (1.0-4.8) k/uL Monocytes # 0.3 (0-1.0) k/uL Eosinophils # 0.1 (0-0.7) k/uL Basophils # 0.0 (0-0.2) k/uL PT 9.9 (9.0-12.0) sec INR 0.9 (<1.2) APTT 23.4 (22.0-30.0) sec Sodium 136 L (137-145) mmol/L Potassium 4.2 (3.5-5.1) mmol/L Chloride 103 (98-107) mmol/L Carbon Dioxide 25 (22-30) mmol/L Anion Gap 8 mmol/L BUN 10 (7-17) mg/dL Creatinine 0.66 (0.52-1.04) mg/dL Est GFR (CKD-EPI)AfAm >90 (>60 ml/min/1.73 sqM) Est GFR (CKD-EPI)NonAf 85 (>60 ml/min/1.73 sqM) Glucose 98 (74-99) mg/dL Calcium 9.5 (8.4-10.2) mg/dL Total Bilirubin 0.4 (0.2-1.3) mg/dL AST 23 (14-36) U/L ALT 10 (4-34) U/L Alkaline Phosphatase 71 (38-126) U/L Troponin I (0.000-0.034) ng/mL Total Protein 6.9 (6.3-8.2) g/dL Albumin 4.0 (3.5-5.0) g/dL Urine Color Urine Appearance (Clear) Urine pH (5.0-8.0) Ur Specific [place] (1.001-1.035) Urine Protein (Negative) Urine Glucose (UA) (Negative) Urine Ketones (Negative) Urine Blood (Negative) Urine Nitrite (Negative) Urine Bilirubin (Negative) Urine Urobilinogen (<2.0) mg/dL Ur Leukocyte Esterase (Negative) Urine Opiates Screen (NotDetected) Ur Oxycodone Screen (NotDetected) Urine Methadone Screen (NotDetected) Ur Propoxyphene Screen (NotDetected) Ur Barbiturates Screen (NotDetected) U Tricyclic Antidepress (NotDetected) Ur Phencyclidine Scrn (NotDetected) Ur Amphetamines Screen (NotDetected) U Methamphetamines Scrn (NotDetected) U Benzodiazepines Scrn (NotDetected) Urine Cocaine Screen (NotDetected) U Marijuana (THC) Screen (NotDetected) 08/25/19 08/25/19 Range/Units 10:00 10:08 WBC (3.8-10.6) k/uL RBC (3.80-5.40) m/uL Hgb (11.4-16.0) gm/dL Hct (34.0-46.0) % MCV (80.0-100.0) fL MCH (25.0-35.0) pg MCHC (31.0-37.0) g/dL RDW (11.5-15.5) % Plt Count (150-450) k/uL Neutrophils % % Lymphocytes % % Monocytes % % Eosinophils % % Basophils % % Neutrophils # (1.3-7.7) k/uL Lymphocytes # (1.0-4.8) k/uL Monocytes # (0-1.0) k/uL Eosinophils # (0-0.7) k/uL Basophils # (0-0.2) k/uL PT (9.0-12.0) sec INR (<1.2) APTT (22.0-30.0) sec Sodium (137-145) mmol/L Potassium (3.5-5.1) mmol/L Chloride (98-107) mmol/L Carbon Dioxide (22-30) mmol/L Anion Gap mmol/L BUN (7-17) mg/dL Creatinine (0.52-1.04) mg/dL Est GFR (CKD-EPI)AfAm (>60 ml/min/1.73 sqM) Est GFR (CKD-EPI)NonAf (>60 ml/min/1.73 sqM) Glucose (74-99) mg/dL Calcium (8.4-10.2) mg/dL Total Bilirubin (0.2-1.3) mg/dL AST (14-36) U/L ALT (4-34) U/L Alkaline Phosphatase (38-126) U/L Troponin I <0.012 (0.000-0.034) ng/mL Total Protein (6.3-8.2) g/dL Albumin (3.5-5.0) g/dL Urine Color Yellow Urine Appearance Clear (Clear) Urine pH 8.0 (5.0-8.0) Ur Specific [place] 1.009 (1.001-1.035) Urine Protein Negative (Negative) Urine Glucose (UA) Negative (Negative) Urine Ketones Negative (Negative) Urine Blood Negative (Negative) Urine Nitrite Negative (Negative) Urine Bilirubin Negative (Negative) Urine Urobilinogen <2.0 (<2.0) mg/dL Ur Leukocyte Esterase Negative (Negative) Urine Opiates Screen Not Detected (NotDetected) Ur Oxycodone Screen Not Detected (NotDetected) Urine Methadone Screen Not Detected (NotDetected) Ur Propoxyphene Screen Not Detected (NotDetected) Ur Barbiturates Screen Not Detected (NotDetected) U Tricyclic Antidepress Not Detected (NotDetected) Ur Phencyclidine Scrn Not Detected (NotDetected) Ur Amphetamines Screen Not Detected (NotDetected) U Methamphetamines Scrn Not Detected (NotDetected) U Benzodiazepines Scrn Detected H (NotDetected) Urine Cocaine Screen Not Detected (NotDetected) U Marijuana (THC) Screen Not Detected (NotDetected) Disposition Clinical Impression: TIA (transient ischemic attack), Visual hallucinations Disposition: ADMITTED IP TO THIS HOSP Referrals: Aldo Long MD [Primary Care Provider] - 1-2 days Time of Disposition: 13:20
[2019-08-25 10:16] LABS: Basophils % (A) 1 %; Eosinophils # (A) 0.1 k/uL (0-0.7); Eosinophils % (A) 2 %; HCT 42.5 % (34.0-46.0); HGB 13.7 gm/dL (11.4-16.0); Lymphocytes # (A) 1.1 k/uL (1.0-4.8); Lymphocytes % (A) 21 %; MCH 30.9 pg (25.0-35.0); MCHC 32.4 g/dL (31.0-37.0); MCV 95.4 fL (80.0-100.0); Mean Platelet Volume 7.7; Monocytes # (A) 0.3 k/uL (0-1.0); Monocytes % (A) 6 %; Neutrophils # (A) 3.7 k/uL (1.3-7.7); Neutrophils % (A) 69 %; Platelet Count 264 k/uL (150-450); RBC 4.45 m/uL (3.80-5.40); RDW 12.6 % (11.5-15.5); WBC 5.4 k/uL (3.8-10.6)
[2019-08-25 10:19] LABS: Appearance,Urine Clear (Clear); Bilirubin,Urine Negative (Negative); Blood,Urine Negative (Negative); Color,Urine Yellow; Glucose,Urine (UA) Negative (Negative); Ketones,Urine Negative (Negative); Leukocyte Esterase,Urine Negative (Negative); Nitrite,Urine Negative (Negative); Protein,Urine Negative (Negative); Specific Gravity,Urine 1.009 (1.001-1.035); Urobilinogen,Urine <2.0 mg/dL (<2.0)
[2019-08-25 10:29] LABS: INR 0.9 (<1.2); Prothrombin Time 9.9 sec (9.0-12.0)
[2019-08-25 10:30] LABS: Partial Thromboplastin Time 23.4 sec (22.0-30.0)
[2019-08-25 10:36] LABS: ALT 10 U/L (4-34); AST 23 U/L (14-36); African American GFR (CKD) >90 (>60 ml/min/1.73 sqM); Alkaline Phosphatase 71 U/L (38-126); Anion Gap 8 mmol/L; Blood Urea Nitrogen 10 mg/dL (7-17); Calcium 9.5 mg/dL (8.4-10.2); Carbon Dioxide 25 mmol/L (22-30); Chloride 103 mmol/L (98-107); Glucose 98 mg/dL (74-99); Non-African American GFR(CKD) 85 (>60 ml/min/1.73 sqM); Potassium 4.2 mmol/L (3.5-5.1); Sodium 136 mmol/L (137-145); Total Bilirubin 0.4 mg/dL (0.2-1.3); Total Protein 6.9 g/dL (6.3-8.2)
[2019-08-25 10:38] LABS: Amphetamine Screen,Urine Not Detected (NotDetected); Barbiturate Screen,Urine Not Detected (NotDetected); Benzodiazepines Screen,Urine Detected (NotDetected); Cocaine Screen,Urine Not Detected (NotDetected); Methadone Screen, Urine Not Detected (NotDetected); Opiate Screen,Urine Not Detected (NotDetected); Oxycodone Screen, Urine Not Detected (NotDetected); Phencyclidine Screen,Urine Not Detected (NotDetected); Tricyclic Antidepressant,Urine Not Detected (NotDetected); Urn Cannabinoid Scrn Not Detected (NotDetected)
--- NOTE | 2019-08-25 11:12 | XR ---
EXAMINATION TYPE: XR chest 2V DATE OF EXAM: 08/25/2019 COMPARISON: 01/30/2019 HISTORY: Shortness of breath TECHNIQUE: Frontal and lateral views of the chest are obtained. FINDINGS: Scattered senescent parenchymal changes noted. Hyperinflation compatible with COPD. No evidence for infiltrate. No evidence for atelectasis. Heart size is stable. Mediastinal structures are stable and grossly unremarkable. No evidence for hilar prominence. Degenerative changes dorsal spine. IMPRESSION: 1. No evidence for acute pulmonary disease.
--- NOTE | 2019-08-25 11:35 | CT ---
EXAMINATION TYPE: CT brain wo con DATE OF EXAM: 08/25/2019 COMPARISON: 01/30/2019 HISTORY: Prior CVA x's 3. Worsened symptoms in the past [address] DLP: 1516.[address] of the brain was performed. The ventricles, basal cisterns and sulci overlying the cerebral convexities demonstrate mild enlargem ent. Large area of remote insult right MCA territory. There is no evidence for intracranial hemorrhage or sulcal effacement. There is decreased attenuation about the periventricular white matter and deep white matter of both c erebral hemispheres, compatible with chronic small vessel ischemia. Differential diagnosis does inclu de demyelination. No mass effects are seen.No midline shift. Osseous calvarium is intact. If symptoms persist consider MRI. IMPRESSION: 1. Age related atrophic and chronic small vessel ischemic change without acute intracranial process s een at this time.
[2019-08-25] MEDS ORDERED: hydrALAZINE HCL 20 MG/ML 1 ML VIAL IVP STA (12:03)
--- NOTE | 2019-08-25 12:37 | CT ---
EXAMINATION TYPE: CT angio head neck DATE OF EXAM: 08/25/2019 HISTORY: Prior CVA x's 3. Worsened symptoms in the past 2 days. COMPARISON: CT angiogram head and neck 01/30/2019 CT DLP: 1516.8 mGycm. Automated Exposure Control for Dose Reduction was Utilized. TECHNIQUE: CTA scan of the neck is performed with IV Contrast, patient injected with 65 mL of Isovue 370, axial images are obtained, coronal and sagittal reformatted images are reviewed. Three-D recons tructed images are created on an independent workstation and reviewed. FINDINGS: Carotid/Vascular Structures: 4 super aortic branch vessels noted and are patent.00 there is a stable appearance. No evident dissection, embolus, or aneurysm. [place] shows patent anterior and p osterior circulation. There is stenosis of the right middle cerebral artery at the level of the trifu rcation as on prior.1 Other: IMPRESSION: No significant abnormality is seen. Consider MRI.
[2019-08-25] MEDS ORDERED: ASPIRIN 325 MG TAB PO STA (13:21)
[2019-08-25 13:51] LABS: Glucose,Whole Blood 98 mg/dL (75-99)
[2019-08-25] MEDS ORDERED: ALPRAZolam 0.25 MG TAB PO PRN (15:27)
--- NOTE | 2019-08-25 16:56 | P.HPIM ---
History of Present Illness H&P Date: 08/25/19 Chief Complaint: CVA/TIA, expression aphasia, visual hallucination, severe d izziness and pre 79-year-old female one of Dr. Aldo Long's patient with past medical history of A. fib, hypertension, hyperlipidemia and hypothyroidism who was in the hospital last time in April 2016 for TIA and CVA, patient was diagnosed with A. fib with RVR was started on request had cardiac testing at the time and cardio to consultation and see neurology as well and has done well that time she had left sided facial droop with stroke has affected the middle cerebral artery territory symptoms has improved some and had no further left arm weakness of the time. Patient had in controlled blood pressure and had mild dysphagia both improve and done well. Patient has been doing very well until 3 days earlier when she started having slight expression aphasia and word salad not able to express herself right become more frustrated and have more impulse with stress and depression become l ittle bit loud with her family. Beside everything else developed to have significant visual hallucination that in the evening yesterday seen her mother and [id number] who both had past long time ago and has been having vivid dream as well. Slight decline in memory especially short-term, slight right- sided droopy face, with mild abnormal balance and gait. Patient denies any fever or chills any severe headache no chest pain shortness of breath no GI symptoms no sign of infection. Was seen in the emergency department and had CT angiography of the neck along with CT of the brain both came back with no major abnormality, blood work did not show any major abnormality as well. Patient try to walk to the bathroom developed to have severe is in this and severe expression aphasia again could not express herself and become more frustrated had more presyncope with no major abnormality on her rhythm strip on her EKG. Patient was place in bed her blood pressure was slightly bit low had significant orthostatic hypotension at the time problem get corrected when she was in bed. Patient was transferred to the floor will continue neuro exam every 2 hours was seen urology MRI of the brain with contrast was order. Review of Systems CONSTITUTIONAL: Well-developed no acute respiratory distress. EYES: No icterus sclerae, no conjunctivitis. EARS, NOSE, MOUTH, THROAT, and FACE: No sore throat, lymphadenopathy, carotid bruits or deformity. RESPIRATORY: No SOB cough or wheezes. CARDIOVASCULAR: Mild palpitation with history of A. fib no angina no chest pain. GASTROINTESTINAL: No Abd pain, Nausea or vomiting, no Diarrhea or constipation, No GI Bleed, no distention or masses. GENITOURINARY: Negative for Hematuria or UTI, no kidney stones. INTEGUMENT/BREAST: Negative for any muscular injury with mild osteoarthritis.. HEMATOLOGIC/LYMPHATIC: Negative for bleed or purpura. MUSCULOSKELTAL: Negative for Myalgia or arthralgia. Mild muscle and joint weakness. NEURLOGICAL: Positive TIA with mild right-sided droopy face along with generalized weakness severe expression aphasia mild right-sided weakness as well with visual hallucination. BEHAVIORAL/PSYCH: Negative. ENDOCRINE: Negative. 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 Family history: Her father at 76 from colon cancer, mother at age 76 from [place], patient had 1 brother who is living and well and 2 adopted children with no major medical problem. Past Medical History Past Medical History: Atrial Fibrillation, CVA/TIA, GERD/Reflux, Hyperlipidemia, Hypertension, Pulmonary Embolus (PE) Additional Past Medical History / Comment(s): 3 CVAs (2017, 2018, 2019; deficits LT arm, LT sided facial droop), spouse states pt may have beginings of dementia per his own observations and Dr. Yasmine Long, PE years ago, spouse unsure if pt ever had DVT, hypothyroid, bilateral hands with dupuytrens disease with surgeries, vertigo lately History of Any Multi-Drug Resistant Organisms: None Reported Past Surgical History: Appendectomy, Hysterectomy, Orthopedic Surgery Additional Past Surgical History / Comment(s): LORIE/CVN, R rotator cuff repair, bilateral hand surgeries for dupuytrens disease, bilateral cataract removals/lens implants, colonoscopies. Past Anesthesia/Blood Transfusion Reactions: No Reported Reaction, Motion Sickness Smoking Status: Former smoker - Past Family History Mother Family Medical History: Coronary Artery Disease (CAD), Hyperlipidemia, Hypertension Additional Family Medical History / Comment(s): Mother had either a [place] or a CVA. Father Additional Family Medical History / Comment(s): Father was an alcoholic. Medications and Allergies Home Medications Medication Instructions Recorded Confirmed Type Famotidine [Pepcid] 20 mg PO DAILY@199905/04/16 08/25/19 History Apixaban [Eliquis] 5 mg PO BID@01/30/19 08/25/19 History ALPRAZolam [Xanax] 0.25 mg PO DAILY PRN 08/25/19 08/25/19 History Levothyroxine Sodium [Synthroid] 50 mcg PO DAILY@79908/25/19 08/25/19 History Losartan [Cozaar] 25 mg PO DAILY@79908/25/19 08/25/19 History Pravastatin Sodium [Pravachol] 20 mg PO HS@219908/25/19 08/25/19 History Allergies Allergy/AdvReac Type Severity Reaction Status Date / Time No Known Allergies Allergy Verified 08/25/19 10:33 Physical Exam Vitals: Vital Signs Temp Pulse Pulse Resp BP BP Pulse Ox 08/25/19 16:22 97.6 F 74 18 128/66 99 08/25/19 15:00 97.6 F 74 16 128/66 08/25/19 14:34 97.5 F L 74 16 156/68 98 08/25/19 13:45 68 16 126/67 98 08/25/19 13:22 82 16 08/25/19 12:30 75 16 127/58 98 08/25/19 12:12 206/92 08/25/19 11:56 58 L 202/95 08/25/19 11:33 60 18 201/90 98 08/25/19 11:00 65 24 156/87 99 08/25/19 09:29 98.4 F 60 16 156/87 97 Intake and Output 08/25/19 08/25/19 08/25/19 06:59 14:59 22:59 Other: Weight 70.76 kg General Appearance: Alert, cooperative, no distress, appears stated age. Neck HEENT: Supple, no lymphadenopathy, no thyroid enlargement, no carotid bruits. Lungs: Clear to auscultation without crackles or wheezes no rhonchi, no deformity. Chest Wall: Chest wall normal expansion with deep inspiration no tenderness and no deformity was found on exam, no costochondral pain or discomfort. Heart: Irregular rhythm and rate S1-S2 positive S3 positive PBC with systolic murmur. Back: Symmetric, no curvature, ROM normal, no CVA tenderness. Abdomen: Soft, non-tender, bowel sounds active all four quadrants, no masses, no organomegaly. Extremities: Trace edema with mild arthritis both knees. Pulses: 2+ and symmetric. Skin: Skin color, texture, tugor normal, no rashes or lesions. Neurologic: Alert oriented slight confusion current in her to the 12th has slight affect) nerve VII on the right side possibly abnormal balance and gait positive mild expression aphasia and still have mild weakness in the right side compared to the left side with slight lack of sensation in the right leg as well. Results CBC & Chem 7: 08/25/19 10:00 08/25/19 10:00 Labs: Abnormal Lab Results - Last 24 Hours (Table) 08/25/19 08/25/19 Range/Units 10:00 10:08 Sodium 136 L (137-145) mmol/L U Benzodiazepines Scrn Detected H (NotDetected) Thrombosis Risk Factor Assmnt - Choose All That Apply Any of the Below Risk Factors Present?: Yes Other Risk Factors: Yes Each Risk Factor Represents 3 Points: Age 75 years or older, History of DVT/PE Other congenital or acquired thrombophilia - If yes, enter type in comment: No Thrombosis Risk Factor Assessment Total Risk Factor Score: 6 Thrombosis Risk Factor Assessment Level: High Risk Assessment and Plan Assessment: 1 TIA/CVA: Patient remain symptomatic MRI of the brain was order, neuro exam every 2 hours, neuro consultation, echocardiogram and continue to watch patient on child monitor for now. Patient can benefit from remain on anticoagulation along with aspirin no need to add Plavix at this point. If MRI of the brain showed any abnormality Plavix can be beneficial. 2 possible atypical seizure: Patient will be going for an EEG if any abnormality was start medication. 3 hypotension dysautonomia: Significant orthostatic drop patient might benefit from tilt table study, will continue losartan 25 mg a day no diuretics currently we'll continue hydration and recheck blood pressure. 4 A. fib: Patient's pulse rates well control she had ablation treatment with Dr. Gao at [facility] few month ago and has been off but beta jabari with no rapid pulse lately but still on Eliquis. 5 visual hallucination: Most likely sign of worsening dementia most likely Alzheimer type, if agreeable by neurology smaller dose of the Donepazil will be recommended. In the meanwhile exclude any other possibility for encephalopathy such as secondary infection like UTI or bronchitis. Ex 6 hypothyroidism: Continue patient on levothyroxine 50 g daily. 7 hyperlipidemia: Remain on Pravachol 20 mg daily. 8 severe GERD and GI prophylaxis: Patient is on Pepcid 20 mg daily. 9 DVT prophylaxis: Patient remain on Eliquis. CODE STATUS: Full code. Admit patient to inpatient service for more than 2 nights stay.
[2019-08-25] MEDS: FAMOTIDINE 20 MG TAB PO SCH (21:22)
[2019-08-25] MEDS: PRAVASTATIN SODIUM 20 MG TAB PO SCH (21:23)
[2019-08-25] MEDS: APIXABAN 5 MG TAB PO SCH (21:23)
[2019-08-25] MEDS: DONEPEZIL 5 MG TAB PO SCH (21:23)
[2019-08-25] MEDS: risperiDONE 0.5 MG TAB PO SCH (21:23)
[2019-08-26 04:34] LABS: Cholesterol 176 mg/dL (<200); HDL Cholesterol 53 mg/dL (40-60); LDL Cholesterol,Calculated 94 mg/dL (0-99); Triglycerides 147 mg/dL (<150)
[2019-08-26] MEDS ORDERED: LOSARTAN 25 MG TAB PO SCH (08:00)
[2019-08-26] MEDS: LEVOTHYROXINE 50 MCG TAB PO SCH (08:14)
[2019-08-26] MEDS: risperiDONE 0.5 MG TAB PO SCH ×2 (08:14→22:19)
[2019-08-26] MEDS: LOSARTAN 25 MG TAB PO SCH (08:14)
[2019-08-26] MEDS: APIXABAN 5 MG TAB PO SCH ×2 (08:14→20:24)
[2019-08-26] MEDS ORDERED: ASPIRIN 325 MG TAB PO SCH (09:00)
[2019-08-26] MEDS ORDERED: diazePAM 5 MG TAB PO STA (09:03)
--- NOTE | 2019-08-26 10:39 | P.CNNES ---
History of Present Illness Consult date: 08/26/19 Requesting physician: Sandro Monte Reason for Consult: tia History of Present Illness: This is a 79-year-old female with past medical history of stroke in 2017 (right MCA territory in parietal region) with residual left facial weakness as well as left upper extremity weakness, TIA in 2018 for a fees and visual disturbance, atrial fibrillation, hypertension, hyperlipidemia and hypothyroidism who presented to the emergency department on 08/25/2019 via ambulance from home. History was obtained from medical records as well as patient as well as the patient's was at bedside. Per the , 3 days prior to presentation the patient was having speech difficulty. He felt like her speech was garbled and felt like a word salad. The episode lasted 1 hour and resolved. She did not have any associated weakness numbness visual disturbance that she complained of. Patient's feels like she is close to or at baseline. For her A. fib and she is on Eliquis. at home she is also on pravastatin 20 mg daily and she has not missed her medicationsFor the past 1 week prior to presentation and the patient stated that the patient would accuses him of being somebody else and will tell him to get out of the house. This puts be on and off throughout the day. Episodes would last for minutes also for the past 6 weeks prior to presentation she would she would see random animals outside of her w indow house, such as a an elephant or different animals that are not there recently as she has been seen her her parents and [id number] body but not her face, but these individuals are have already . Per the she has been sleeping well. She denies headache, fevers chills cough. Eyes trauma to the head. Patient is an ex-smoker she smoked for 15 years and has stopped about 3 years ago. Patient takes Xanax 0.25 mg when necessary. In the ED and the patient had CT of the head and it was reported as age-related atrophic and chronic small vessel ischemic changes without acute intracranial process seen at this time. I reviewed the images and it shows encephalomalacia in the right MCA territory. CTA of the head and neck was reported as no significant abnormality is seen. EKG was reported at ventricular rate of 60 normal sinus rhythm. Normal EKG. on presentation her initial temperature was 98.4 Fahrenheit and blood pressure was 128/66. She also had a hospital presentation in April 2016 for left facial droop, patient was found to have stroke. MRI Brain reported as acute ischemia involving both anterior and posterior parietal region on the right and small ve ssel disease. She was found to have A. fib with RVR. Patient had a routine EEG on 05/06/2016 and was reported as within normal limits and no epileptiform discharges. Review of Systems Review of system: The 12 point system was reviewed and apparent positive and n egative per HPI. Past Medical History Past Medical History: Atrial Fibrillation, CVA/TIA, GERD/Reflux, Hyperlipidemia, Hypertension, Pulmonary Embolus (PE) Additional Past Medical History / Comment(s): 3 CVAs (2017, 2018, 2019; deficits LT arm, LT sided facial droop), spouse states pt may have beginings of dementia per his own observations and Dr. Yasmine Long, PE years ago, spouse unsure if pt ever had DVT, hypothyroid, bilateral hands with dupuytrens disease with surgeries, vertigo lately History of Any Multi-Drug Resistant Organisms: None Reported Past Surgical History: Appendectomy, Hysterectomy, Orthopedic Surgery Additional Past Surgical History / Comment(s): LORIE/CVN, R rotator cuff repair, bilateral hand surgeries for dupuytrens disease, bilateral cataract removals/lens implants, colonoscopies. Past Anesthesia/Blood Transfusion Reactions: No Reported Reaction, Motion Sickness Smoking Status: Former smoker - Past Family History Mother Family Medical History: Coronary Artery Disease (CAD), Hyperlipidemia, Hypertension Additional Family Medical History / Comment(s): Mother had either a IA or a CVA. Father Additional Family Medical History / Comment(s): Father was an alcoholic. Medications and Allergies Home Medications Medication Instructions Recorded Confirmed Type Famotidine [Pepcid] 20 mg PO DAILY@199905/04/16 08/25/19 History Apixaban [Eliquis] 5 mg PO BID@01/30/19 08/25/19 History ALPRAZolam [Xanax] 0.25 mg PO DAILY PRN 08/25/19 08/25/19 History Levothyroxine Sodium [Synthroid] 50 mcg PO DAILY@79908/25/19 08/25/19 History Losartan [Cozaar] 25 mg PO DAILY@79908/25/19 08/25/19 History Pravastatin Sodium [Pravachol] 20 mg PO HS@2200 08/25/19 08/25/19 History Allergies Allergy/AdvReac Type Severity Reaction Status Date / Time No Known Allergies Allergy Verified 08/25/19 10:33 Physical Examination - Vital Signs Vital Signs: Vital Signs Temp Pulse Pulse Resp BP BP Pulse Ox 08/26/19 08:22 98.0 F 65 16 102/57 99 08/26/19 08:00 98.0 F 65 16 102/57 99 08/26/19 06:22 98.3 F 60 18 98/60 99 08/26/19 04:22 60 16 138/58 96 08/26/19 03:57 98.3 F 63 15 129/63 96 08/26/19 02:22 98.3 F 63 15 129/63 96 08/26/19 00:22 98.0 F 59 L 15 123/63 95 08/26/19 00:00 98.3 F 71 16 133/68 96 08/25/19 22:22 98.3 F 71 16 133/68 96 08/25/19 20:22 98.1 F 75 18 132/69 100 08/25/19 19:55 98.1 F 75 18 132/69 100 08/25/19 18:22 97.6 F 74 18 128/66 99 08/25/19 16:22 97.6 F 74 18 128/66 99 08/25/19 15:00 97.6 F 74 16 128/66 08/25/19 14:34 97.5 F L 74 16 156/68 98 08/25/19 13:45 68 16 126/67 98 08/25/19 13:22 82 16 08/25/19 12:30 75 16 127/58 98 08/25/19 12:12 206/92 08/25/19 11:56 58 L 202/95 08/25/19 11:33 60 18 201/90 98 08/25/19 11:00 65 24 156/87 99 08/25/19 09:29 98.4 F 60 16 156/87 97 Intake and Output 08/25/19 08/26/19 08/26/19 22:59 06:59 14:59 Output Total 200 Balance -200 Output: Urine 200 Other: Voiding Method Toilet Toilet # Voids 2 1 0 Weight 71.2 kg GENERAL: The patient is lying in bed and is not in acute distress. CHEST: The heart rate is regular rate rhythm. No murmurs to auscultation. No carotid bruit bilaterally. LUNG: Clear to auscultation bilaterally no wheezing noted throughout. Not labored breathing. ABDOMEN/GI: Bowel sounds present in all 4 quadrants. No tenderness to palpation throughout. NEUROLOGICAL: Higher mental function: The patient is awake, alert, oriented to self, place and time. Upon asking her how old she stated in her 30's then her told her that it was incorrect and then had to think about it then correctly answered it. Patient is following commands. She seemed to have slight expressive aphasi a and speech was somewhat slow. No neglect. Cranial nerves: The pupils are round, equal and reactive to light and accommodation. Visual patterson are full to confrontation throughout. Extraocular movement is intact no nystagmus is noted. Facial sensation is normal to touch throughout. The facial strength: left lower facial weakness. Hearing is normal bilaterally to hand rub. Tongue is midline and moved [id number] without any difficulty. No dysarthria is noted. Shoulder shrug is normal bilaterally. Motor: The strength is 4+ on left hand muscles from previous stroke but otherwise 5 over 5 throughout. Cerebellum: Normal finger to nose heel to chin bilaterally. Sensation: Sensation is normal to touch throughout. Reflexes (right/left): 2+ throughout except at ankles are 1+ b/l. Plantars are mute bilaterally. Results PT of 9.9, INR is 0.9, PTT of 23.4. AST of 23, ALC of 10. Lipid profile: LDL 94, cholesterol 176, triglycerides 147, HDL 53. urine drug seen was positive for benzo. Miller virus PCR was not detected. - Laboratory Findings CBC and BMP: 08/25/19 10:00 08/25/19 10:00 Abnormal Lab Findings: Abnormal Labs 08/25/19 08/25/19 10:00 10:08 Sodium 136 L U Benzodiazepines Scrn Detected H Assessment and Plan Assessment: This is a 79-year-old female with past medical history of stroke in 2017 (right MCA territory in parietal region) with residual left facial weakness as well as left upper extremity weakness, TIA in 2018 for a fees and visual disturbance, atrial fibrillation, hypertension, hyperlipidemia and hypothyroidism who presented to the emergency department on 08/25/2019 for garbaled speech for the past 3 days, visual hallucination for 6 weeks. For her A. fib and she is on Eliquis and on pravastatin 20 mg daily and has not missed her medication. Expressive Aphasia could be due to stroke and a differential seizure (especially has chronic large right MCA stroke which can cause cortical irritability). Another possility is due to Psychiatric problem. Atrial fibrillation HTN Hyperlipidemia Plan: Stroke work-up include: MR the brain: Pending CT of the head and it was reported as age-related atrophic and chronic small vessel ischemic changes without acute intracranial process seen at this time. I reviewed the images and it shows encephalomalacia in the right MCA territory. CT of the head and neck was reported as no significant abnormality is seen. CTA of the head and neck was reported as no significant abnormality is seen. Transthoracic echocardiogram: Pending TSH; Pending hemoglobin A1c; Continue Eliquis and Pravastatin 20mg daily with target LDL less than 70. Lipid profile: LDL 94, cholesterol 176, triglycerides 147, HDL 53. If MRI Brain is negative for stroke then will place patient on Keppra 500mg bid for seizure prophylaxis especially with large encephalomalacia which cause cortical irritability and increases risk of seizure. We will consider of getting routine EEG. Psychiatry is on board. PT/OT/MICROWAVE OVEN ASSEMBLER are consulted. Thank you for the consult. Ryan Malone MD Time with Patient: Greater than 30
--- NOTE | 2019-08-26 11:20 | MR ---
EXAMINATION TYPE: MR brain wo/w con DATE OF EXAM: 08/26/2019 COMPARISON: Prior CT brain 08/25/2019 brain MRI with and without contrast HISTORY: Stroke Multiplanar multisequence and postcontrast images through the brain following 7 cc Gadavist IV Correlation CT brain 08/25/2019 There is no restricted diffusion. Evidence of prior cerebrovascular accident again noted in the distr ibution of the middle cerebral artery, there is abnormal increased signal on inversion recovery T2-we ighted sequences in the right cerebrum as noted on prior CT. Some scattered hyperintensities are pres ent in the periventricular white matter on inversion recovery and T2-weighted sequences. There is no hemorrhage or hydrocephalus. Corpus callosum, pituitary, cervical medullary junction, cerebellopontin e angles are within normal limits. There is enhancement along the distribution of the middle cerebral arteries possibly due to recanalization. Orbits show symmetric appearance. Mild atrophy is likely ag e-related. IMPRESSION: Chronic right middle cerebral artery infarct, no subacute infarct is evident.
[2019-08-26 14:48] LABS: T4, Free (Free Thyroxine) 1.68 ng/dL (0.78-2.19)
--- NOTE | 2019-08-26 15:10 | P.PN ---
Subjective Progress Note Date: 08/26/19 79-year-old female one of Dr. Aldo Long's patient with past medical history of A. fib, hypertension, hyperlipidemia and hypothyroidism who was in the hospital last time in April 2016 for TIA and CVA, patient was diagnosed with A. fib with RVR was started on request had cardiac testing at the time and cardio to consultation and see neurology as well and has done well that time she had left sided facial droop with stroke has affected the middle cerebral artery territory symptoms has improved some and had no further left arm weakness of the time. Patient had in controlled blood pressure and had mild dysphagia both improve and done well. Patient has been doing very well until 3 days earlier when she started having slight expression aphasia and word salad not able to express herself right beco me more frustrated and have more impulse with stress and depression become little bit loud with her family. Beside everything else developed to have significant visual hallucination that in the evening yesterday seen her mother and [id number] who both had past long time ago and has been having vivid dream as well. Slight decline in memory especially short-term, slight right- sided droopy face, with mild abnormal balance and gait. Patient denies any fever or chills any severe headache no chest pain shortness of breath no GI symptoms no sign of infection. Was seen in the emergency department and had CT angiography of the neck along with CT of the brain both came back with no major abnormality, blood work did not show any major abnormality as well. Patient try to walk to the bathroom [facility] to have severe is in this and severe expression aphasia again could not express herself and become more frustrated had more presyncope with no major abnormality on her rhythm strip on her EKG. Patient was place in bed her blood pressure was slightly bit low had significant orthostatic hypotension at the time problem get corrected when she was in bed. Patient was transferred to the floor will continue neuro exam every 2 hours was seen urology MRI of the brain with contrast was order. 08/25: Patient has been seen by neurology for expressive aphasia could be due to stroke and differential seizure. Patient has chronic large right MCA stroke which can cause cortical irritability. Other possibilities due to psychiatric problems. Neurology recommends continuing eliquis and statin. If MRI is negative for stroke and then start Keppra 500 mg twice daily for seizure and consider getting routine EEG. Do not anticipate patient would cooperate for EEG. Patient did have a rough night with intermittent periods of confusion but improved with medication changes. MRI of the brain revealed chronic right middle cerebral artery infarct, no acute infarct is evident. Patient will be started on Broad as advised by neurology. Echocardiogram ordered and report is pending. TSH 5.680 and normal free T4 1.68. Hemoglobin A1c is pending. COVID-19 not detected. Triglycerides 147, cholesterol 176, LDL 94 and HDL 53. Patient is followed by PT, OT and speech therapy. Patient will be transferred to the [facility] floor. cattle manager/social science manager working on discharge planning for tomorrow. Review of systems CONSTITUTIONAL: Well-developed no acute respiratory distress. Denies fever, denies chills. EYES: No icterus sclerae, no conjunctivitis. EARS, NOSE, MOUTH, THROAT, and FACE: No sore throat, lymphadenopathy, carotid bruits or deformity. RESPIRATORY: No SOB cough or wheezes. CARDIOVASCULAR: Mild palpitation with history of A. fib no angina no chest pain. GASTROINTESTINAL: No Abd pain, Nausea or vomiting, no Diarrhea or constipation, No GI Bleed, no distention or masses. GENITOURINARY: Negative for Hematuria or UTI, no kidney stones. INTEGUMENT/BREAST: Negative for any muscular injury with mild osteoarthritis.. HEMATOLOGIC/LYMPHATIC: Negative for bleed or purpura. MUSCULOSKELTAL: Negative for Myalgia or arthralgia. Mild muscle and joint weakness. NEURLOGICAL: Positive TIA with mild right-sided droopy face along with generalized weakness severe expression aphasia mild right-sided weakness as well with visual hallucination. BEHAVIORAL/PSYCH: Negative. ENDOCRINE: Negative. Physical examination General Appearance: Alert, cooperative, no distress, appears stated age. Neck HEENT: Supple, no lymphadenopathy, no thyroid enlargement, no carotid bruits. Lungs: Clear to auscultation without crackles or wheezes no rhonchi, no deformity. Chest Wall: Chest wall normal expansion with deep inspiration no tenderness and no deformity was found on exam, no costochondral pain or discomfort. Heart: Irregular rhythm and rate S1-S2 positive S3 positive PBC with systolic murmur. Back: Symmetric, no curvature, ROM normal, no CVA tenderness. Abdomen: Soft, non-tender, bowel sounds active all four quadrants, no masses, no organomegaly. Extremities: Trace edema with mild arthritis both knees. Pulses: 2+ and symmetric. Skin: Skin color, texture, tugor normal, no rashes or lesions. Neurologic: Alert oriented slight confusion current in her to the 12th has slight affect) nerve VII on the right side possibly abnormal balance and gait positive mild expression aphasia and still have mild weakness in the right side compared to the left side with slight lack of sensation in the right leg as well. Patient is cooperative. Assessment and plan 1 TIA, possible seizure disorder. Patient will be started on Keppra 500 mg twice daily. Neurology consult appreciated. Echocardiogram 2 possible atypical seizure. Patient started on Keppra, neurology consult appreciated. 3 hypotension dysautonomia: Significant orthostatic drop patient might benefit from tilt table study, will continue losartan 25 mg a day no diuretics currently we'll continue hydration and recheck blood pressure. 4 A. fib, paroxysmal: Patient's pulse rates well control she had ablation treatment with Dr. Gao at [facility] few month ago and has been off but beta jabari with no rapid pulse lately but still on Eliquis. 5 visual hallucination: Most likely sign of worsening dementia most likely Alzheimer type, if agreeable by neurology smaller dose of the Donepazil will be recommended. In the meanwhile exclude any other possibility for encephalopathy such as secondary infection like UTI or bronchitis. 6 hypothyroidism: Continue patient on levothyroxine 50 g daily. 7 hyperlipidemia: Remain on Pravachol 20 mg daily. 8 severe GERD and GI prophylaxis: Patient is on Pepcid 20 mg daily. 9 DVT prophylaxis: Patient remain on Eliquis. CODE STATUS: Full code. Discharge plan: Subacute rehab tomorrow Impression and plan of care have been directed as dictated by the signing physician. Emily Marroquin nurse practitioner acting as scribe for signing physician. Objective - Vital Signs Vital signs: Vital Signs Temp 98.0 F 08/26/19 08:22 Pulse 65 08/26/19 08:22 Resp 16 08/26/19 08:22 BP 102/57 08/26/19 08:22 Pulse Ox 99 08/26/19 08:22 Intake & Output 08/25/19 08/26/19 08/26/19 18:59 06:59 18:59 Output Total 200 Balance -200 Weight 70.76 kg 71.2 kg Output: Urine 200 Other: Voiding Method Toilet # Voids 1 0 - Labs CBC & Chem 7: 08/25/19 10:00 08/25/19 10:00 Labs: Abnormal Lab Results - Last 24 Hours (Table) 08/25/19 08/25/19 Range/Units 10:00 10:08 Sodium 136 L (137-145) mmol/L U Benzodiazepines Scrn Detected H (NotDetected)
--- NOTE | 2019-08-26 17:41 | CONS ---
CONSULTATION REASON FOR CONSULTATION: Visual hallucinations. IDENTIFYING DATA: The patient is a 79-year-old female who was brought to the ER for transient ischemic attack. HISTORY OF PRESENT ILLNESS: I reviewed the medical record and I did interview the patient and her , who was next to her. The patient is very pleasant and polite. However, it seems that she has been confused on and off. She denied any depressive symptoms. She stated that she is not confused. However, her stated that for the last 4 or 5 weeks she has been complaining of visual hallucinations, seeing animals in the house and also seeing people in the house. He did notice that she has been confused and not remembering everything, as before. According to him, this was gradually getting worse over the last 4 or 5 weeks. Her stated that she did stop driving, as she has been not able to concentrate well since her first stroke in 2017. At that time she did have speech therapy and physical therapy. MEDICAL HISTORY: As I mentioned before, she has history of cerebrovascular accident in 2017 and also history of TIA, hypertension, hyperlipidemia, atrial fibrillation, hypothyroidism. According to her , the patient was having these significant visual hallucinations for 3-4 weeks. However, for the last couple of days prior to her admission she started having expressive aphasia, having a hard time expressing herself, and she gets very frustrated about this. PAST PSYCHIATRIC HISTORY: There is no previous psychiatric history. FAMILY HISTORY: There is no history of dementia in the family, as her father at age 76 from colon cancer and her mother at age 76 from myocardial infarction. BRIEF SOCIAL HISTORY: The patient has been for 58 years and they have 2 adopted children, ages 52 and 50. HOME MEDICATIONS: Her home medications were Pepcid, Eliquis, Xanax 0.25 p.r.n., Synthroid, Cozaar and Pravachol. ALLERGIES: THERE ARE NO KNOWN ALLERGIES. SUBSTANCE USE HISTORY: The patient denied any alcohol and she even stopped smoking. MENTAL STATUS EXAMINATION: The patient presented as a very pleasant female who looks younger than stated age, wearing eyeglasses. She has no abnormal movement. Her speech is spontaneous, was limited in productivity, but there was no articulation difficulty. She was anxious to participate in the cognitive testing, but she denied being depressed. She denied any suicidal ideation. She denied any delusional thinking. She stated that she was seeing animals and people in the house, but she denied any visual hallucinations today. The patient has a definite short attention span and is very distracted sometimes. It seems that she gets confused in the middle of her conversation. Regarding her orientation, she stated that today is September 06, 2019. For the hospital, she said that it is [facility]. She recalled zero out of 3 objects after a couple of minutes. She could not do any simple calculations, as she said 193, then 27. She could not spell "world" backward. She was able to name a pencil and a watch. She was able to write her name and follow simple instructions. Regarding the president, she stated that the current present is Kajal; the one before she said is Sampson Kaplan's boss. She was able to name 5 cities in the [place]. Her insight and judgment are limited. DIAGNOSIS: Delirium reaction with major neurocognitive disorder, vascular reason. PLAN: Please avoid any benzodiazepine and discontinue Xanax completely. Neurology consultation. It seems that she was started on Risperdal 0.5 twice a day. I do agree with this to control her visual hallucinations. Monitor for any fluctuation in her cognitive function during . The patient was already started on Aricept for her memory 5 mg at bedtime. I do recommend referring her to an outpatient neurologist for followup regarding her neurocognitive deficit. Thank you for this consult. BRANDIE / JENAE: [id number] /
[2019-08-26 19:56] LABS: Hemoglobin A1C 5.6 % (4.0-6.0)
[2019-08-26] MEDS: FAMOTIDINE 20 MG TAB PO SCH (20:24)
--- NOTE | 2019-08-26 20:56 | CONS ---
CONSULTATION This is a 79-year-old lady with a known history of paroxysmal atrial fibrillation who has been brought to the emergency room by her with complaints of hallucinations. Apparently he was talking to her and then she had an episode when she could not get her words correctly. There was an element of confusion, disorientation, and prior to that for the last 2-3 months she has been having unusual hallucinations. There was a concern that this may be a TIA. At the same time, etiology for hallucinations seems to be elusive, and therefore I was asked to see her to see if there is any cardiac etiology. I evaluated the patient, talked to her and family. Patient's symptoms are rather vague. She does not recall any disorientation, but her clearly feels that she was unable to get her words. MRI is unremarkable for any new stroke. There is evidence of old stroke. She has paroxysmal atrial fibrillation, and in January of last year she underwent electrical cardioversion performed at [facility]. At that time she converted to sinus rhythm and has maintained sinus rhythm since then. She takes Eliquis 5 mg b.i.d. She has been hallucinating randomly, especially with animals, and she started seeing an elephant and became concerned. Denies any chest pain, shortness of breath, palpitations, or any baron syncope. PAST MEDICAL HISTORY: Hypertension, hyperlipidemia, history of CVA in the past. She has paroxysmal atrial fibrillation and an electrical cardioversion was performed in January at [facility] in [place]. She is status post hysterectomy. ALLERGIES: NONE. MEDICATIONS: Medications include losartan 50 mg daily, Synthroid 50 mcg daily, pravastatin 20 mg daily, Xanax, Eliquis 5 mg b.i.d. and Pepcid 20 mg daily. PHYSICAL EXAMINATION: On examination, patient does not seem to be totally oriented but responds to questions. Blood pressure is 138/70. Pulse rate is 60 per minute. HEENT unremarkable. Fundus was not examined by me. Neck is supple. There is no JVD. I do not hear a carotid bruit. Heart exam reveals S1, S2 heard normally. Rhythm is regular. There is a short systolic murmur. There are no gallops. Lungs reveal decent air entry. Abdomen is soft. Lower extremities reveal diminished pulses. Central nervous system is normal. EKG reveals sinus mechanism; no acute changes. IMPRESSION: 1. Paroxysmal atrial fibrillation, status post electrical cardioversion. 2. Hallucinations of unclear etiology. Patient has not changed any medications; medications have been pretty much the same. 3. Hypertension. 4. Hypercholesterolemia. 5. History of previous cerebrovascular accident with evidence of a prior infarct on MRI of the head. RECOMMENDATIONS: I am recommending that we discontinue the aspirin altogether. Continue Eliquis. Continue telemetry monitoring. I would recommend a full neurological evaluation for this patient. I do not have any cardiac etiology for her hallucinations. I will also recommend an echocardiogram. Based on these findings, I will make further recommendations. We will discontinue the aspirin, check echocardiogram, and I would recommend a neurology evaluation. MMODL / IJN: [id number] /
[2019-08-26] MEDS: DONEPEZIL 5 MG TAB PO SCH (22:19)
[2019-08-26] MEDS: levETIRAcetam 500 MG TAB PO SCH (22:19)
[2019-08-26] MEDS: PRAVASTATIN SODIUM 20 MG TAB PO SCH (22:19)
[2019-08-27 08:00] VITALS: RESP 18
[2019-08-27] MEDS ORDERED: MAGNESIUM HYDROXIDE 2,400 MG/10 ML CUP PO PRN (08:32)
--- NOTE | 2019-08-27 08:37 | P.DS ---
Providers Date of admission: 08/25/19 13:22 Expected date of discharge: 08/27/19 Attending physician: Santiago Allen Consults: 08/25/19 13:22 Consult Physician Routine Consulting Provider: Ryan Malone Consult Reason/Comments: TIA Do you want consulting provider notified?: Yes 08/27/19 08:31 Consult Physician Routine Consulting Provider: Lou Akbar Consult Reason/Comments: already evaluated Do you want consulting provider notified?: Already Contacted Primary care physician: Aldo Long [facility] Course: 79-year-old female one of Dr. Aldo Long's patient with past medical history of A. fib, hypertension, hyperlipidemia and hypothyroidism who was in the hospital last time in April 2016 for TIA and CVA, patient was diagnosed with A. fib with RVR was started on request had cardiac testing at the time and cardio to consultation and see neurology as well and has done well that time she had left sided facial droop with stroke has affected the middle cerebral artery territory symptoms has improved some and had no further left arm weakness of the time. Patient had in controlled blood pressure and had mild dysphagia both improve and done well. Patient has been doing very well until 3 days earlier when she started having slight expression aphasia and word salad not able to express herself right become more frustrated and have more impulse with stress and depression become little bit loud with her family. Beside everything else developed to have significant visual hallucination that in the evening yesterday seen her mother and [id number] who both had past long time ago and has been having vivid dream as well. Slight decline in memory especially short-term, slight right- sided droopy face, with mild abnormal balance and gait. Patient denies any fever or chills any severe headache no chest pain shortness of breath no GI symptoms no sign of infection. Was seen in the emergency department and had CT angiography of the neck along with CT of the brain both came back with no major abnormality, blood work did not show any major abnormality as well. Patient try to walk to the bathroom developed to have severe is in this and severe expression aphasia again could not express herself and become more frustrated had more presyncope with no major abnormality on her rhythm strip on her EKG. Patient was place in bed her blood pressure was slightly bit low had significant orthostatic hypotension at the time problem get corrected when she was in bed. Patient was transferred to the floor will continue neuro exam every 2 hours was seen urology MRI of the brain with contrast was order. 08/25: Patient has been seen by neurology for expressive aphasia could be due to stroke and differential seizure. Patient has chronic large right MCA stroke which can cause cortical irritability. Other possibilities due to psychiatric problems. Neurology recommends continuing eliquis and statin. If MRI is negative for stroke and then start Keppra 500 mg twice daily for seizure and consider getting routine EEG. Do not anticipate patient would cooperate for EEG. Patient did have a rough night with intermittent periods of confusion but improved with medication changes. MRI of the brain revealed chronic right middle cerebral artery infarct, no acute infarct is evident. Patient will be started on Broad as advised by neurology. Echocardiogram ordered and report is pending. TSH 5.680 and normal free T4 1.68. Hemoglobin A1c is pending. COVID-19 not detected. Triglycerides 147, cholesterol 176, LDL 94 and HDL 53. Patient is followed by PT, OT and speech therapy. Patient will be transferred to the [facility] floor. account general manager/social media assistant working on discharge planning for tomorrow. 08/25: Patient was seen by psychiatry yesterday with recommendations to discontinue Xanax completely., Agree with Risperdal 0.5 mg twice daily, monitor fluctuations in cognitive function during . Continue Aricept. Bhumika jollyogy consult. Patient's is at bedside, he states the patient had confusion during the night. Patient continues to have some confusion this morning. CODE STATUS was changed to no code. Patient is complaining of constipation for which Senokot and milk of magnesia added. Patient has been afebrile, heart rate 63, blood pressure 173/78, pulse ox 96% on room air. Hemoglobin A1c 5.6. Echocardiogram report is pending. Social work is following for discharge planning to [facility]. Patient is medically clear for discharge today. Assessment and plan 1 TIA, possible seizure disorder. 2 possible atypical seizure. 3 hypotension dysautonomia 4 A. fib, paroxysmal 5 visual hallucination: Most likely sign of worsening dementia most likely A lzheimer type 6 hypothyroidism 7 hyperlipidemia 8 severe GERD Discharge plan: Subacute rehab today Impression and plan of care have been directed as dictated by the signing physician. Emily Marroquin nurse practitioner acting as scribe for signing physician. Patient Condition at Discharge: Stable Plan - Discharge Summary Discharge Rx Participant: No New Discharge Prescriptions: New Donepezil [Aricept] 5 mg PO HS #0 tab levETIRAcetam [Keppra] 500 mg PO Q12HR #0 tab risperiDONE [RisperDAL] 0.5 mg PO BID tab Sennosides-Docusate Sodium [Senokot-S] 2 each PO DAILY tab Continue Famotidine [Pepcid] 20 mg PO DAILY@1999 Apixaban [Eliquis] 5 mg PO BID@799,1999 ALPRAZolam [Xanax] 0.25 mg PO DAILY PRN PRN Reason: Anxiety Losartan [Cozaar] 25 mg PO DAILY@08 Pravastatin Sodium [Pravachol] 20 mg PO HS@220 Levothyroxine Sodium [Synthroid] 50 mcg PO DAILY@0800 Discharge Medication List Famotidine [Pepcid] 20 mg PO DAILY@199905/04/16 [History] Apixaban [Eliquis] 5 mg PO BID@799,199901/30/19 [History] ALPRAZolam [Xanax] 0.25 mg PO DAILY PRN 08/25/19 [History] Levothyroxine Sodium [Synthroid] 50 mcg PO DAILY@0808/25/19 [History] Losartan [Cozaar] 25 mg PO DAILY@0808/25/19 [History] Pravastatin Sodium [Pravachol] 20 mg PO HS@2200 08/25/19 [History] Donepezil [Aricept] 5 mg PO HS #0 tab 08/27/19 [Rx] Sennosides-Docusate Sodium [Senokot-S] 2 each PO DAILY tab 08/27/19 [Rx] levETIRAcetam [Keppra] 500 mg PO Q12HR #0 tab 08/27/19 [Rx] risperiDONE [RisperDAL] 0.5 mg PO BID tab 08/27/19 [Rx] Follow up Appointment(s)/Referral(s): Aldo Long MD [Primary Care Provider] - 1 Week Discharge Disposition: TRANSFER TO SNF/F
[2019-08-27] MEDS: LOSARTAN 25 MG TAB PO SCH (08:49)
[2019-08-27] MEDS: levETIRAcetam 500 MG TAB PO SCH (08:49)
[2019-08-27] MEDS: risperiDONE 0.5 MG TAB PO SCH (08:50)
[2019-08-27] MEDS: LEVOTHYROXINE 50 MCG TAB PO SCH (08:50)
[2019-08-27] MEDS: APIXABAN 5 MG TAB PO SCH (08:50)
[2019-08-27] MEDS ORDERED: SENNOSIDES-DOCUSATE SODIUM 1 EACH TAB PO SCH (09:00)
--- NOTE | 2019-08-27 09:24 | ECHOF ---
Referral Reason:ro cva, tia MEASUREMENTS -------- HEIGHT: 165.1 cm WEIGHT: 70.8 kg BP: IVSd: 1.5 cm (0.6 - 1.1) LVIDd: 4.0 cm (3.9 - 5.3) LVPWd: 1.5 cm (0.6 - 1.1) IVSs: 1.7 cm LVIDs: 4.0 cm LVPWs: 1.4 cm LA Diam: 4.7 cm (2.7 - 3.8) LAESV Index (A-L): 36.17 ml/m Ao Diam: 2.7 cm (2.0 - 3.7) AV Cusp: 1.4 cm (1.5 - 2.6) LA Diam: 5.0 cm (2.7 - 3.8) MV EXCURSION: 21.866 mm (> 18.000) MV EF SLOPE: 69 mm/s (70 - 150) EPSS: 0.5 cm MV E Kevan: 0.40 m/s MV DecT: 269 ms MV A Kevan: 0.73 m/s MV E/A Ratio: 0.54 RAP: 5.00 mmHg RVSP: 27.16 mmHg FINDINGS -------- Sinus rhythm. This was a technically good study. The left ventricular size is normal. There is moderate concentric left ventricular hypertrophy. O verall left ventricular systolic function is normal with, an EF between 55 - 60 %. The right ventricle is normal in size. LA is moderately dilated 34-39 ml/m2 The right atrial size is normal. The aortic valve is trileaflet, and appears structurally normal. No aortic stenosis or regurgitation. The mitral valve is normal. Mild mitral regurgitation is present. Mild tricuspid regurgitation present. Right ventricular systolic pressure is normal at < 35 mmHg. Trace/mild (physiologic) pulmonic regurgitation. The aortic root size is normal. Echo free space represents a pericardial fat pad. CONCLUSIONS -------- 1. There is moderate concentric left ventricular hypertrophy. 2. Overall left ventricular systolic function is normal with, an EF between 55 - 60 %. 3. LA is moderately dilated 34-39 ml/m2 4. The aortic valve is trileaflet, and appears structurally normal. No aortic stenosis or regurgitati on. 5. Mild mitral regurgitation is present. 6. Mild tricuspid regurgitation present. 7. Trace/mild (physiologic) pulmonic regurgitation. 8. Echo free space represents a pericardial fat pad. MUNITIONS WORKER: Sangeetha Dwyer RDCS
--- NOTE | 2019-08-27 09:29 | P.PN ---
Subjective Progress Note Date: 08/27/19 79-year-old female one of Dr. Aldo Long's patient with past medical history of A. fib, hypertension, hyperlipidemia and hypothyroidism who was in the hospital last time in April 2016 for TIA and CVA, patient was diagnosed with A. fib with RVR was started on request had cardiac testing at the time and cardio to consultation and see neurology as well and has done well that time she had left sided facial droop with stroke has affected the middle cerebral artery territory symptoms has improved some and had no further left arm weakness of the time. Patient had in controlled blood pressure and had mild dysphagia both improve and done well. Patient has been doing very well until 3 days earlier when she started having slight expression aphasia and word salad not able to express herself right beco me more frustrated and have more impulse with stress and depression become little bit loud with her family. Beside everything else developed to have significant visual hallucination that in the evening yesterday seen her mother and [id number] who both had past long time ago and has been having vivid dream as well. Slight decline in memory especially short-term, slight right- sided droopy face, with mild abnormal balance and gait. Patient denies any fever or chills any severe headache no chest pain shortness of breath no GI symptoms no sign of infection. Was seen in the emergency department and had CT angiography of the neck along with CT of the brain both came back with no major abnormality, blood work did not show any major abnormality as well. Patient try to walk to the bathroom [facility] to have severe is in this and severe expression aphasia again could not express herself and become more frustrated had more presyncope with no major abnormality on her rhythm strip on her EKG. Patient was place in bed her blood pressure was slightly bit low had significant orthostatic hypotension at the time problem get corrected when she was in bed. Patient was transferred to the floor will continue neuro exam every 2 hours was seen urology MRI of the brain with contrast was order. 08/25: Patient has been seen by neurology for expressive aphasia could be due to stroke and differential seizure. Patient has chronic large right MCA stroke which can cause cortical irritability. Other possibilities due to psychiatric problems. Neurology recommends continuing eliquis and statin. If MRI is negative for stroke and then start Keppra 500 mg twice daily for seizure and consider getting routine EEG. Do not anticipate patient would cooperate for EEG. Patient did have a rough night with intermittent periods of confusion but improved with medication changes. MRI of the brain revealed chronic right middle cerebral artery infarct, no acute infarct is evident. Patient will be started on Broad as advised by neurology. Echocardiogram ordered and report is pending. TSH 5.680 and normal free T4 1.68. Hemoglobin A1c is pending. COVID-19 not detected. Triglycerides 147, cholesterol 176, LDL 94 and HDL 53. Patient is followed by PT, OT and speech therapy. Patient will be transferred to the [facility] floor. chiropractic practice manager/social media intern working on discharge planning for tomorrow. 08/25: Patient was seen by psychiatry yesterday with recommendations to disco ntinue Xanax completely., Agree with Risperdal 0.5 mg twice daily, monitor fluctuations in cognitive function during . Continue Aricept. Neurology consult. Patient's is at bedside, he states the patient had confusion during the night. Patient continues to have some confusion this morning. CODE STATUS was changed to no code. Patient is complaining of constipation for which Senokot and milk of magnesia added. Patient has been afebrile, heart rate 63, blood pressure 173/78, pulse ox 96% on room air. Hemoglobin A1c 5.6. Echocardiogram report is pending. Social work is following for discharge planning to [facility]. Patient is medically clear for discharge today. Review of systems CONSTITUTIONAL: Well-developed no acute respiratory distress. Denies fever, denies chills. EYES: No icterus sclerae, no conjunctivitis. EARS, NOSE, MOUTH, THROAT, and FACE: No sore throat, lymphadenopathy, carotid bruits or deformity. RESPIRATORY: No SOB cough or wheezes. CARDIOVASCULAR: Mild palpitation with history of A. fib no angina no chest pain. GASTROINTESTINAL: No Abd pain, Nausea or vomiting, no Diarrhea or constipation, No GI Bleed, no distention or masses. GENITOURINARY: Negative for Hematuria or UTI, no kidney stones. INTEGUMENT/BREAST: Negative for any muscular injury with mild osteoarthritis.. HEMATOLOGIC/LYMPHATIC: Negative for bleed or purpura. MUSCULOSKELTAL: Negative for Myalgia or arthralgia. Mild muscle and joint weakness. NEURLOGICAL: Positive TIA with generalized weakness severe expression aphasia mild right-sided weakness as well with visual hallucination. BEHAVIORAL/PSYCH: Negative. ENDOCRINE: Negative. Physical examination General Appearance: Alert, cooperative, no distress, appears stated age. Neck HEENT: Supple, no lymphadenopathy, no thyroid enlargement, no carotid bruits. Lungs: Clear to auscultation without crackles or wheezes no rhonchi, no deformity. Chest Wall: Chest wall normal expansion with deep inspiration no tenderness and no deformity was found on exam, no costochondral pain or discomfort. Heart: Irregular rhythm and rate S1-S2 positive S3 positive PBC with systolic murmur. Back: Symmetric, no curvature, ROM normal, no CVA tenderness. Abdomen: Soft, non-tender, bowel sounds active all four quadrants, no masses, no organomegaly. Extremities: Trace edema with mild arthritis both knees. Pulses: 2+ and symmetric. Skin: Skin color, texture, tugor normal, no rashes or lesions. Neurologic: Alert oriented slight confusion. Assessment and plan 1 TIA, possible seizure disorder. Patient will be started on Keppra 500 mg twice daily. Neurology consult appreciated. Echocardiogram 2 possible atypical seizure. Patient started on Keppra, neurology consult appreciated. 3 hypotension dysautonomia: Significant orthostatic drop patient might benefit from tilt table study, will continue losartan 25 mg a day no diuretics currently we'll continue hydration and recheck blood pressure. 4 A. fib, paroxysmal: Patient's pulse rates well control she had ablation treatment with Dr. Gao at [facility] few month ago and has been off but beta jabari with no rapid pulse lately but still on Eliquis. 5 visual hallucination: Most likely sign of worsening dementia most likely Alzheimer type, if agreeable by neurology smaller dose of the Donepazil will be recommended. In the meanwhile exclude any other possibility for encephalopathy such as secondary infection like UTI or bronchitis. 6 hypothyroidism: Continue patient on levothyroxine 50 g daily. 7 hyperlipidemia: Remain on Pravachol 20 mg daily. 8 severe GERD and GI prophylaxis: Patient is on Pepcid 20 mg daily. 9 DVT prophylaxis: Patient remain on Eliquis. CODE STATUS: Full code. Discharge plan: Subacute rehab today Impression and plan of care have been directed as dictated by the signing physician. Emily Marroquin nurse practitioner acting as scribe for signing physician. Objective - Vital Signs Vital signs: Vital Signs Temp 97.7 F 08/27/19 07:00 Pulse 63 07/17/20 07:00 Resp 18 08/27/19 07:00 BP 173/78 08/27/19 07:00 Pulse Ox 96 08/27/19 07:00 Intake & Output 08/26/19 08/27/19 08/27/19 18:59 06:59 18:59 Intake Total 480 Balance 480 Intake: Oral 480 Other: Voiding Method Toilet # Voids 1 1 # Bowel Movements 0 - Labs CBC & Chem 7: 08/25/19 10:00 08/25/19 10:00 Labs: Abnormal Lab Results - Last 24 Hours (Table) 08/26/19 Range/Units 12:21 TSH 5.680 H (0.465-4.680) mIU/L
[2019-08-27 13:39] VITALS: BP 129/72; PULSE 78; TEMP 98
--- NOTE | 2019-08-27 23:07 | EEG ---
ELECTROENCEPHALOGRAM REPORT DATE OF SERVICE: 08/27/2019 CLINICAL HISTORY: This is a 79-year-old female with a history of right MCA stroke who presented to the hospital on 08/25/2019 for visual hallucinations as well as speech difficulty. This EEG is obtained to evaluate for seizure and epileptiform activity. EEG TYPE: This is a 21-channel EEG with EKG. DESCRIPTION: Wakefulness, drowsiness and stage II sleep are obtained. During wakefulness there is a posterior-dominant rhythm of 7.5 to 8 Hz that is symmetrical, of low to moderate voltage that is well modulated and well sustained. During drowsiness there is slowing and attenuation of background activity. During stage II sleep there are spindles and K complexes seen bilaterally. There is near-continuous to continuous arrhythmic low to moderate voltage of 1 to 1.5 Hz delta slowing intermixed with theta activity over the right temporal, central and parietal derivatives and is predominantly seen over the right temporal region. There is moderate to high voltage of 1 to 1.5 Hz generalized rhythmic delta activity with frontal predominance. Interictal and ictal: None. ACTIVATION PROCEDURES: Photic stimulation did not evoke a posterior driving response. Hyperventilation was not performed because of the patient's clinical history of seizure. EEG DIAGNOSIS: This is an abnormal routine EEG due to: 1. Near-continuous to continuous arrhythmic delta slowing intermixed with theta activity over the right temporal central parietal region, predominantly seen over the temporal region. 2. Occasional generalized rhythmic delta activity of frontal predominance. 3. Background slowing. CLINICAL INTERPRETATION: This is an abnormal awake, drowsy and sleep routine EEG study due to mild encephalopathy of unspecified etiology. Also there is focal slowing over the right temporal central parietal derivative consistent with focal cerebral dysfunction, and that correlates with the patient's history of right MCA stroke. There is no interictal or ictal activity during the study. Clinical interpretation is recommended. MMODL / IJN: [id number] /
== END 2019-08-27 14:33 ==
LOC: EC 09:10 → 3NCARDOBS 13:22 → 3SCARD 14:39 → 4SSUR 08-26 20:34
PROVIDERS: ADMIT Internal Medicine Geriatric Medicine; ATTEND Internal Medicine Geriatric Medicine
DX: G45.9 Transient cerebral ischemic attack, unspecified (principal); G90.1 Familial dysautonomia [Riley-Day]; I48.0 Paroxysmal atrial fibrillation; R44.1 Visual hallucinations; E03.9 Hypothyroidism, unspecified; E78.5 Hyperlipidemia, unspecified; K21.9 Gastro-esophageal reflux disease without esophagitis; I10 Essential (primary) hypertension; R94.01 Abnormal electroencephalogram [EEG]; G93.40 Encephalopathy, unspecified; R26.9 Unspecified abnormalities of gait and mobility; I95.1 Orthostatic hypotension; I95.89 Other hypotension; R41.0 Disorientation, unspecified; F02.80 Dementia in other diseases classified elsewhere, unspecified severity, without behavioral disturbance, psychotic disturbance, mood disturbance, and anxiety; E78.00 Pure hypercholesterolemia, unspecified; F01.50 Vascular dementia, unspecified severity, without behavioral disturbance, psychotic disturbance, mood disturbance, and anxiety; G31.9 Degenerative disease of nervous system, unspecified; G93.89 Other specified disorders of brain; I08.1 Rheumatic disorders of both mitral and tricuspid valves; I69.334 Monoplegia of upper limb following cerebral infarction affecting left non-dominant side; I69.392 Facial weakness following cerebral infarction; Z03.818 Encounter for observation for suspected exposure to other biological agents ruled out; Z79.01 Long term (current) use of anticoagulants; Z79.899 Other long term (current) drug therapy; Z79.890 Hormone replacement therapy; Z90.710 Acquired absence of both cervix and uterus; Z98.890 Other specified postprocedural states; Z87.39 Personal history of other diseases of the musculoskeletal system and connective tissue; Z86.711 Personal history of pulmonary embolism; Z90.49 Acquired absence of other specified parts of digestive tract; Z98.41 Cataract extraction status, right eye; Z98.42 Cataract extraction status, left eye; Z96.1 Presence of intraocular lens; Z87.898 Personal history of other specified conditions; Z87.891 Personal history of nicotine dependence; Z97.3 Presence of spectacles and contact lenses; Z82.49 Family history of ischemic heart disease and other diseases of the circulatory system; Z81.1 Family history of alcohol abuse and dependence; Z83.438 Family history of other disorder of lipoprotein metabolism and other lipidemia; Z80.0 Family history of malignant neoplasm of digestive organs
CPT/HCPCS: 96361; 96374; 99285; 36415; 95816; 93005; 93306; 97116; 97162; 97535; 97166; 92610; 92523; 84439; 80061; 80053; 84443; 84484; 85025; 85610; 85730; 81003; 80306; 83036; 71046; 70496; 70450; 70498; 70553; G0378 ×5; U0003; J0360; A9585; Q9967

== ENCOUNTER 2019-08-28 18:22 | Emergency (ER) | payer MEDICARE ==
[2019-08-28 18:35] VITALS: RESP 18; TEMP 97.8
--- NOTE | 2019-08-28 18:40 | ED ---
General Adult HPI - General Source: patient, EMS Mode of arrival: EMS Limitations: altered mental status <Skip Rivera - Last Filed: 08/28/19 21:59> <Thiago Lauren - Last Filed: 08/28/19 22:11> - General Chief complaint: Psychiatric Symptoms Stated complaint: Suicidal Time Seen by Provider: 08/28/19 18:23 - History of Present Illness Initial comments: Patient presents the ED by ambulance from her intermediate for evaluation. Per intermediate report, the patient was combative and hallucinating while at the intermediate today. They also reported that the patient made suicidal remarks. Patient has a history of dementia. Patient is not combative on arrival to the ED. Patient denies being suicidal to me. Patient denies having any pain or symptoms at this time. Patient denies having any pain, fever or chills, headache, focal neuro deficit, chest pain, dyspnea, cough or cold symptoms, dizziness, palpitations, abdominal pain, nausea/vomiting/diarrhea, bloody or melanotic stool, dysuria or urinary symptoms, or any other symptoms or complaints. Patient denies alcohol or illicit drug use. (Skip Rivera) - Related Data Home Medications Medication Instructions Recorded Confirmed Famotidine [Pepcid] 20 mg PO DAILY@199905/04/16 08/25/19 Apixaban [Eliquis] 5 mg PO BID@0801/30/19 08/25/19 Levothyroxine Sodium [Synthroid] 50 mcg PO DAILY@79908/25/19 08/25/19 Losartan [Cozaar] 25 mg PO DAILY@79908/25/19 08/25/19 Pravastatin Sodium [Pravachol] 20 mg PO HS@2200 08/25/19 08/25/19 Previous Rx's Medication Instructions Recorded Donepezil [Aricept] 5 mg PO HS #0 tab 08/27/19 Sennosides-Docusate Sodium 2 each PO DAILY tab 08/27/19 [Senokot-S] levETIRAcetam [Keppra] 500 mg PO Q12HR #0 tab 08/27/19 risperiDONE [RisperDAL] 0.5 mg PO BID tab 08/27/19 Allergies Allergy/AdvReac Type Severity Reaction Status Date / Time No Known Allergies Allergy Verified 08/28/19 18:35 Review of Systems ROS Other: All systems not noted in ROS Statement are negative. <Skip Rivera - Last Filed: 08/28/19 21:59> ROS Other: All systems not noted in ROS Statement are negative. <Thiago Lauren - Last Filed: 08/28/19 22:11> ROS Statement: Those systems with pertinent positive or pertinent negative responses have been documented in the HPI. Past Medical History Past Medical History: Atrial Fibrillation, CVA/TIA, Dementia, GERD/Reflux, Hyperlipidemia, Hypertension, Pulmonary Embolus (PE) Additional Past Medical History / Comment(s): 3 CVAs (2017, 2018, 2019; deficits LT arm, LT sided facial droop), spouse states pt may have beginings of dementia per his own observations and Dr. Yasmine Long, PE years ago, spouse unsure if pt ever had DVT, hypothyroid, bilateral hands with dupuytrens disease with surgeries, vertigo lately History of Any Multi-Drug Resistant Organisms: None Reported Past Surgical History: Appendectomy, Hysterectomy, Orthopedic Surgery Additional Past Surgical History / Comment(s): LORIE/CVN, R rotator cuff repair, bilateral hand surgeries for dupuytrens disease, bilateral cataract removals/lens implants, colonoscopies. Past Anesthesia/Blood Transfusion Reactions: No Reported Reaction, Motion Sickness Past Psychological History: Anxiety, Depression Smoking Status: Former smoker - Past Family History Mother Family Medical History: Coronary Artery Disease (CAD), Hyperlipidemia, Hypertension Additional Family Medical History / Comment(s): Mother had either a MT or a CVA. Father Additional Family Medical History / Comment(s): Father was an alcoholic. <Skip Rivera - Last Filed: 08/28/19 21:59> General Exam Limitations: altered mental status General appearance: alert, in no apparent distress Head exam: Present: atraumatic, normocephalic Eye exam: Present: normal appearance, PERRL, EOMI ENT exam: Present: mucous membranes moist Neck exam: Present: other (Trachea is in midline). Absent: tenderness, meningismus Respiratory exam: Present: normal lung sounds bilaterally. Absent: respiratory distress, wheezes, rales, rhonchi Cardiovascular Exam: Present: regular rate, normal rhythm, normal heart sounds, other (Normal radial pulses bilaterally) GI/Abdominal exam: Present: soft. Absent: distended, tenderness, guarding Extremities exam: Present: full ROM. Absent: tenderness, pedal edema, calf tenderness Neurological exam: Present: alert, CN II-XII intact, other (Patient is oriented to person and place, but not to time). Absent: motor sensory deficit Skin exam: Present: warm, dry, intact, normal color <Skip Rivera - Last Filed: 08/28/19 21:59> Course <Skip Rivera - Last Filed: 08/28/19 21:59> Vital Signs 08/28/19 08/28/19 18:32 21:23 Temperature 97.8 F Pulse Rate 58 L 64 Respiratory 18 18 Rate Blood Pressure 121/98 178/82 O2 Sat by Pulse 95 97 Oximetry - Reevaluation(s) Reevaluation #1: 08/28/19 19:00 Patient is continuously getting out of her bed and attempting to walk around the ED. She is starting to become combative with the ED staff. Geodon 10 mg IM and Ativan 1mg IM has been ordered. 08/28/19 22:01 Patient was sedated in the ED, and she is no longer combative/uncooperative. Patient's labs and CXR are all fairly unremarkable. Patient's head CT report is still pending. I suspect that the patient's behavioral changes and mental status are likely secondary to her underlying dementia. Patient was endorsed to Dr. Lauren (secondary to end of my shift). Plan will be to discharge patient back to her intermediate with instructions for close follow-up with her primary care provider if patient's head CT is negative. (Skip Rivera) Medical Decision Making - Lab Data Result diagrams: 08/28/19 20:05 08/28/19 20:05 - Radiology Data Radiology results: image reviewed (Chest x-ray: Questionable basilar atelectasis, otherwise no acute cardiopulmonary process) <Skip Rivera - Last Filed: 08/28/19 21:59> - Lab Data Result diagrams: 08/28/19 20:05 08/28/19 20:05 <Thiago Lauren - Last Filed: 08/28/19 22:11> - Medical Decision Making Patient care sent out to me by previous shift physician Dr. Ramsey. Plan at sign out was to follow-up with CT imaging results if dose findings are negative patient can be discharge back to intermediate facility. Briefly, patient is a 71-year-old male past medical history of dementia. She was sent here for hallucinations, aggressive behavior and suicidal thoughts. CT imaging was obtained showing no acute findings. Patient is cooperative. She is resting comfortably at bedside. She'll be discharge back to [facility]. (Thiago Lauren) - Lab Data Lab Results 08/28/19 08/28/19 08/28/19 Range/Units 19:28 20:05 20:05 WBC 5.5 (3.8-10.6) k/uL RBC 4.16 (3.80-5.40) m/uL Hgb 12.6 (11.4-16.0) gm/dL Hct 39.7 (34.0-46.0) % MCV 95.2 (80.0-100.0) fL MCH 30.3 (25.0-35.0) pg MCHC 31.8 (31.0-37.0) g/dL RDW 12.5 (11.5-15.5) % Plt Count 260 (150-450) k/uL Neutrophils % 59 % Lymphocytes % 29 % Monocytes % 7 % Eosinophils % 3 % Basophils % 0 % Neutrophils # 3.2 (1.3-7.7) k/uL Lymphocytes # 1.6 (1.0-4.8) k/uL Monocytes # 0.4 (0-1.0) k/uL Eosinophils # 0.1 (0-0.7) k/uL Basophils # 0.0 (0-0.2) k/uL PT 10.0 (9.0-12.0) sec INR 1.0 (<1.2) APTT 23.4 (22.0-30.0) sec Sodium (137-145) mmol/L Potassium (3.5-5.1) mmol/L Chloride (98-107) mmol/L Carbon Dioxide (22-30) mmol/L Anion Gap mmol/L BUN (7-17) mg/dL Creatinine (0.52-1.04) mg/dL Est GFR (CKD-EPI)AfAm (>60 ml/min/1.73 sqM) Est GFR (CKD-EPI)NonAf (>60 ml/min/1.73 sqM) Glucose (74-99) mg/dL Calcium (8.4-10.2) mg/dL Total Bilirubin (0.2-1.3) mg/dL AST (14-36) U/L ALT (4-34) U/L Alkaline Phosphatase (38-126) U/L Ammonia (<30) umol/L Troponin I (0.000-0.034) ng/mL Total Protein (6.3-8.2) g/dL Albumin (3.5-5.0) g/dL TSH (0.465-4.680) mIU/L Urine Color Yellow Urine Appearance Cloudy H (Clear) Urine pH 5.5 (5.0-8.0) Ur Specific [place] 1.019 (1.001-1.035) Urine Protein Trace H (Negative) Urine Glucose (UA) Negative (Negative) Urine Ketones 1+ H (Negative) Urine Blood Trace H (Negative) Urine Nitrite Negative (Negative) Urine Bilirubin Negative (Negative) Urine Urobilinogen <2.0 (<2.0) mg/dL Ur Leukocyte Esterase Moderate H (Negative) Urine RBC 4 (0-5) /hpf Urine WBC 4 (0-5) /hpf Ur Squamous Epith Cells 4 (0-4) /hpf Hyaline Casts 53 H (0-2) /lpf Urine Mucus Moderate H (None) /hpf Urine Opiates Screen Not Detected (NotDetected) Ur Oxycodone Screen Not Detected (NotDetected) Urine Methadone Screen Not Detected (NotDetected) Ur Propoxyphene Screen Not Detected (NotDetected) Ur Barbiturates Screen Not Detected (NotDetected) U Tricyclic Antidepress Not Detected (NotDetected) Ur Phencyclidine Scrn Not Detected (NotDetected) Ur Amphetamines Screen Not Detected (NotDetected) U Methamphetamines Scrn Not Detected (NotDetected) U Benzodiazepines Scrn Detected H (NotDetected) Urine Cocaine Screen Not Detected (NotDetected) U Marijuana (THC) Screen Not Detected (NotDetected) Serum Alcohol mg/dL 07/18/20 07/18/20 07/18/20 Range/Units 20:05 20:05 20:05 WBC (3.8-10.6) k/uL RBC (3.80-5.40) m/uL Hgb (11.4-16.0) gm/dL Hct (34.0-46.0) % MCV (80.0-100.0) fL MCH (25.0-35.0) pg MCHC (31.0-37.0) g/dL RDW (11.5-15.5) % Plt Count (150-450) k/uL Neutrophils % % Lymphocytes % % Monocytes % % Eosinophils % % Basophils % % Neutrophils # (1.3-7.7) k/uL Lymphocytes # (1.0-4.8) k/uL Monocytes # (0-1.0) k/uL Eosinophils # (0-0.7) k/uL Basophils # (0-0.2) k/uL PT (9.0-12.0) sec INR (<1.2) APTT (22.0-30.0) sec Sodium 137 (137-145) mmol/L Potassium 4.0 (3.5-5.1) mmol/L Chloride 103 (98-107) mmol/L Carbon Dioxide 25 (22-30) mmol/L Anion Gap 9 mmol/L BUN 15 (7-17) mg/dL Creatinine 0.67 (0.52-1.04) mg/dL Est GFR (CKD-EPI)AfAm >90 (>60 ml/min/1.73 sqM) Est GFR (CKD-EPI)NonAf 85 (>60 ml/min/1.73 sqM) Glucose 90 (74-99) mg/dL Calcium 9.8 (8.4-10.2) mg/dL Total Bilirubin 0.6 (0.2-1.3) mg/dL AST 24 (14-36) U/L ALT 9 (4-34) U/L Alkaline Phosphatase 74 (38-126) U/L Ammonia <9 (<30) umol/L Troponin I <0.012 (0.000-0.034) ng/mL Total Protein 7.0 (6.3-8.2) g/dL Albumin 4.1 (3.5-5.0) g/dL TSH 2.940 (0.465-4.680) mIU/L Urine Color Urine Appearance (Clear) Urine pH (5.0-8.0) Ur Specific [place] (1.001-1.035) Urine Protein (Negative) Urine Glucose (UA) (Negative) Urine Ketones (Negative) Urine Blood (Negative) Urine Nitrite (Negative) Urine Bilirubin (Negative) Urine Urobilinogen (<2.0) mg/dL Ur Leukocyte Esterase (Negative) Urine RBC (0-5) /hpf Urine WBC (0-5) /hpf Ur Squamous Epith Cells (0-4) /hpf Hyaline Casts (0-2) /lpf Urine Mucus (None) /hpf Urine Opiates Screen (NotDetected) Ur Oxycodone Screen (NotDetected) Urine Methadone Screen (NotDetected) Ur Propoxyphene Screen (NotDetected) Ur Barbiturates Screen (NotDetected) U Tricyclic Antidepress (NotDetected) Ur Phencyclidine Scrn (NotDetected) Ur Amphetamines Screen (NotDetected) U Methamphetamines Scrn (NotDetected) U Benzodiazepines Scrn (NotDetected) Urine Cocaine Screen (NotDetected) U Marijuana (THC) Screen (NotDetected) Serum Alcohol <10 mg/dL Disposition <Skip Rivera - Last Filed: 08/28/19 21:59> Is patient prescribed a controlled substance at d/c from ED?: No Time of Disposition: 22:11 <Thiago Lauren - Last Filed: 08/28/19 22:11> Clinical Impression: Altered mental status, Dementia, Combative behavior Disposition: HOME SELF-CARE Instructions (If sedation given, give patient instructions): Dementia (ED), Altered Mental Status (ED) Referrals: Aldo Long MD [Primary Care Provider] - 1-2 days
[2019-08-28] MEDS ORDERED: ZIPRASIDONE 20 MG VIAL IM STA ×2 (18:55→20:01)
[2019-08-28] MEDS ORDERED: LORazepam 2 MG/ML INJ IM STA ×2 (18:59→20:01)
[2019-08-28 19:48] LABS: Appearance,Urine Cloudy (Clear); Bilirubin,Urine Negative (Negative); Blood,Urine Trace (Negative); Color,Urine Yellow; Glucose,Urine (UA) Negative (Negative); Hyaline Casts,Urine 53 /lpf (0-2); Ketones,Urine 1+ (Negative); Leukocyte Esterase,Urine Moderate (Negative); Mucus,Urine Moderate /hpf; Nitrite,Urine Negative (Negative); PH, Urine 5.5 (5.0-8.0); Protein,Urine Trace (Negative); RBC,Urine 4 /hpf (0-5); Specific Gravity,Urine 1.019 (1.001-1.035); Squamous Epithelial Cell,Urine 4 /hpf (0-4); Urobilinogen,Urine <2.0 mg/dL (<2.0); WBC,Urine 4 /hpf (0-5)
[2019-08-28 19:52] LABS: Cocaine Screen,Urine Not Detected (NotDetected); Phencyclidine Screen,Urine Not Detected (NotDetected); Urn Cannabinoid Scrn Not Detected (NotDetected)
[2019-08-28 19:53] LABS: Amphetamine Screen,Urine Not Detected (NotDetected); Barbiturate Screen,Urine Not Detected (NotDetected); Benzodiazepines Screen,Urine Detected (NotDetected); Methadone Screen, Urine Not Detected (NotDetected); Opiate Screen,Urine Not Detected (NotDetected); Oxycodone Screen, Urine Not Detected (NotDetected); Tricyclic Antidepressant,Urine Not Detected (NotDetected)
[2019-08-28 20:35] LABS: Basophils % (A) 0 %; Eosinophils # (A) 0.1 k/uL (0-0.7); Eosinophils % (A) 3 %; HCT 39.7 % (34.0-46.0); HGB 12.6 gm/dL (11.4-16.0); Lymphocytes # (A) 1.6 k/uL (1.0-4.8); Lymphocytes % (A) 29 %; MCH 30.3 pg (25.0-35.0); MCHC 31.8 g/dL (31.0-37.0); MCV 95.2 fL (80.0-100.0); Mean Platelet Volume 7.5; Monocytes # (A) 0.4 k/uL (0-1.0); Monocytes % (A) 7 %; Neutrophils # (A) 3.2 k/uL (1.3-7.7); Neutrophils % (A) 59 %; Platelet Count 260 k/uL (150-450); RBC 4.16 m/uL (3.80-5.40); RDW 12.5 % (11.5-15.5); WBC 5.5 k/uL (3.8-10.6)
[2019-08-28 20:44] LABS: Partial Thromboplastin Time 23.4 sec (22.0-30.0)
[2019-08-28 20:52] LABS: ALT 9 U/L (4-34); AST 24 U/L (14-36); African American GFR (CKD) >90 (>60 ml/min/1.73 sqM); Albumin 4.1 g/dL (3.5-5.0); Alcohol <10 mg/dL; Alkaline Phosphatase 74 U/L (38-126); Anion Gap 9 mmol/L; Blood Urea Nitrogen 15 mg/dL (7-17); Calcium 9.8 mg/dL (8.4-10.2); Carbon Dioxide 25 mmol/L (22-30); Chloride 103 mmol/L (98-107); Glucose 90 mg/dL (74-99); Non-African American GFR(CKD) 85 (>60 ml/min/1.73 sqM); Sodium 137 mmol/L (137-145); Total Bilirubin 0.6 mg/dL (0.2-1.3)
--- NOTE | 2019-08-28 22:00 | XR ---
EXAMINATION TYPE: XR chest 1V portable DATE OF EXAM: 08/28/2019 COMPARISON: Chest radiograph 08/25/2019 HISTORY: Altered mental status TECHNIQUE: Single frontal portable view of the chest is obtained. FINDINGS: There is no focal air space opacity, pleural effusion, or pneumothorax seen. The cardiac silhouette size is within normal limits. The osseous structures are intact. IMPRESSION: No acute process.
--- NOTE | 2019-08-28 22:00 | CT ---
EXAMINATION TYPE: CT brain wo con DATE OF EXAM: 08/28/2019 COMPARISON: 08/25/2019 HISTORY: 79-year-old female with confusion, altered mental status TECHNIQUE: Examination was done in axial plane without intravenous contrast. Coronal and sagittal r econstructions performed. CT DLP: 1099.4 mGycm Automated exposure control for dose reduction was used. FINDINGS: There is mild bifrontal atrophy. Encephalomalacia on the right relating to a large prior MCA territor y infarct. Slight asymmetric ex vacuo enlargement of the right lateral ventricle. No midline shift. N o acute intracranial hemorrhage. No effacement of basal subarachnoid cisterns. No acute ischemic changes seen. No extra-axial fluid collection. Mild mucosal thickening right ethmoid air cells. Mastoid air cells well pneumatized. Orbits and globe s are intact. IMPRESSION: Old right MCA territory infarct redemonstrated. No acute intracranial abnormality seen.
[2019-08-28 22:20] VITALS: BP 99/55; PULSE 55
== END 2019-08-28 22:45 | disposition home or self-care (01) ==
LOC: EC 18:22
DX: F03.90 Unspecified dementia, unspecified severity, without behavioral disturbance, psychotic disturbance, mood disturbance, and anxiety (principal); R41.82 Altered mental status, unspecified; I48.91 Unspecified atrial fibrillation; K21.9 Gastro-esophageal reflux disease without esophagitis; I10 Essential (primary) hypertension; E03.9 Hypothyroidism, unspecified; E78.5 Hyperlipidemia, unspecified; Z79.01 Long term (current) use of anticoagulants; Z79.890 Hormone replacement therapy; Z79.899 Other long term (current) drug therapy; Z86.73 Personal history of transient ischemic attack (TIA), and cerebral infarction without residual deficits; Z86.718 Personal history of other venous thrombosis and embolism; Z87.891 Personal history of nicotine dependence
CPT/HCPCS: 36415; 80053; 82140; 84443; 84484; 85025; 85610; 85730; 81001; 80306; 71045; 70450; 99283; 96372 ×4; G0480; J2060; J3486; 80320

== ENCOUNTER 2019-09-04 10:10 | Emergency (ER) | payer MEDICARE ==
[2019-09-04 10:16] VITALS: RESP 16; TEMP 97.8
[2019-09-04] MEDS ORDERED: SODIUM CHLORIDE 0.9% 1,000 ML IV STA ×2 (10:29)
--- NOTE | 2019-09-04 10:45 | ED ---
General Adult HPI - General Chief complaint: Syncope Stated complaint: Syncope Time Seen by Provider: 09/04/19 10:18 Source: EMS, RN notes reviewed, old records reviewed Mode of arrival: EMS Limitations: no limitations - History of Present Illness Initial comments: Patient is a 71-year-old female who presents emergency department today with chief complaint of syncopal episode last night after going to the bathroom. Patient states that she did have a episode where she tripped and fell 2 days ago hitting her head on the end of a dresser drawer. She is currently living at [facility]. She states that she is not evaluated after the head injury 3 days ago. She is on blood thinners. She states that after her syncopal episode yesterday she was did not hit her head but was lowered to her bed by an aide. Patient states that she had no chest pain shortness breath prior to this. - Related Data Home Medications Medication Instructions Recorded Confirmed Famotidine [Pepcid] 20 mg PO DAILY@0605/04/16 09/04/19 Apixaban [Eliquis] 5 mg PO BID@0800,199901/30/19 09/04/19 Levothyroxine Sodium [Synthroid] 50 mcg PO DAILY@0608/25/19 09/04/19 Losartan [Cozaar] 25 mg PO DAILY@0908/25/19 09/04/19 Pravastatin Sodium [Pravachol] 20 mg PO HS@219908/25/19 09/04/19 ALPRAZolam [Xanax] 0.25 mg PO Q8H PRN 09/04/19 09/04/19 Dextromethorphan HBr/Quinidine 1 cap PO BID@0900,209909/04/19 09/04/19 [Nuedexta 20-10 mg Capsule] Donepezil [Aricept] 5 mg PO HS@209909/04/19 09/04/19 LORazepam ORAL CONC [Ativan 0.5 mg PO Q6H PRN 09/04/19 09/04/19 Intensol] Melatonin 6 mg PO HS@209909/04/19 09/04/19 Midodrine HCl [ProAmatine] 10 mg PO TID@0900,1300,209909/04/19 09/04/19 Sennosides-Docusate Sodium 2 tab PO HS@209909/04/19 09/04/19 [Senokot-S] levETIRAcetam [Keppra] 500 mg PO BID@0900,209909/04/19 09/04/19 risperiDONE [RisperDAL] 0.5 mg PO BID@0900,209909/04/19 09/04/19 Allergies Allergy/AdvReac Type Severity Reaction Status Date / Time No Known Allergies Allergy Verified 09/04/19 10:45 Review of Systems ROS Statement: Those systems with pertinent positive or pertinent negative responses have been documented in the HPI. ROS Other: All systems not noted in ROS Statement are negative. Past Medical History Past Medical History: Atrial Fibrillation, CVA/TIA, Dementia, GERD/Reflux, Hyperlipidemia, Hypertension, Pulmonary Embolus (PE) Additional Past Medical History / Comment(s): 3 CVAs (2017, 2018, 2019; deficits LT arm, LT sided facial droop), spouse states pt may have beginings of dementia per his own observations and Dr. Yasmine Long, PE years ago, spouse unsure if pt ever had DVT, hypothyroid, bilateral hands with dupuytrens disease with surgeries, vertigo lately History of Any Multi-Drug Resistant Organisms: None Reported Past Surgical History: Appendectomy, Hysterectomy, Orthopedic Surgery Additional Past Surgical History / Comment(s): LORIE/CVN, R rotator cuff repair, bilateral hand surgeries for dupuytrens disease, bilateral cataract removals/lens implants, colonoscopies. Past Anesthesia/Blood Transfusion Reactions: No Reported Reaction, Motion Sickness Past Psychological History: Anxiety, Depression Smoking Status: Former smoker Past Alcohol Use History: None Reported Past Drug Use History: None Reported - Past Family History Mother Family Medical History: Coronary Artery Disease (CAD), Hyperlipidemia, Hypertension Additional Family Medical History / Comment(s): Mother had either a ID or a CVA. Father Additional Family Medical History / Comment(s): Father was an alcoholic. General Exam - General Exam Comments Initial Comments: 79-year-old female. Alert and oriented 3. No significant distress. Limitations: no limitations General appearance: alert, in no apparent distress Head exam: Present: atraumatic, normocephalic, normal inspection Eye exam: Present: normal appearance, PERRL, EOMI. Absent: scleral icterus, conjunctival injection, periorbital swelling ENT exam: Present: normal exam, mucous membranes moist Neck exam: Present: normal inspection. Absent: tenderness, meningismus, lymphadenopathy Respiratory exam: Present: normal lung sounds bilaterally. Absent: respiratory distress, wheezes, rales, rhonchi, stridor Cardiovascular Exam: Present: regular rate, normal rhythm, normal heart sounds. Absent: systolic murmur, diastolic murmur, rubs, gallop, clicks GI/Abdominal exam: Present: soft, normal bowel sounds. Absent: distended, tenderness, guarding, rebound, rigid Back exam: Present: normal inspection Neurological exam: Present: alert, oriented X3, CN II-XII intact Psychiatric exam: Present: normal affect, normal mood Skin exam: Present: warm, dry, intact, normal color. Absent: rash Course Vital Signs 09/04/19 10:10 Temperature 97.8 F Pulse Rate 86 Respiratory 16 Rate Blood Pressure 157/78 O2 Sat by Pulse 99 Oximetry EKG Findings - EKG Comments: EKG Findings:: EKG shows sinus bradycardia otherwise normal EKG. Ventricular rate of 56 bpm. As 140 ms. QS duration is 70 ms. QT QTc is 444/428 ms. Medical Decision Making - Medical Decision Making 79-year-old female presents emergency department today for evaluation for concern for syncopal episodes sound reports the bathroom. Patient reports she stood up quickly and felt dizzy and called for an 8. The patient's symptoms consistent with orthostatic-related syncope. Patient denies any chest pain or other complaints at this time. She also mentioned she fell and hit her head a few days ago. CT of the brain today was completed and negative for any acute process. She does have a history of previous CVAs. Labs reveal an unremarkable. EKG shows no acute changes. Chest x-ray was reviewed and normal. Patient was able to ambulate multiple times to and from the bathroom without significant difficulty. Patient has recent hospital admission was reviewed. That time she had an echocardiogram which showed an EF of 55%. I discussed this case with Dr. Marley. At this time Patient states she preferred to go back to [facility]. His I discussed with the patient's recent hospitalization and TESTING was completed there and patient's symptoms being related to orthostatic hypotension most likely she is just be more hydrated and take a few minutes between going from sitting to standing. Patient is agreeable to this plan. Patient will be discharged back to [facility] [place] in stable condition. - Lab Data Result diagrams: 09/04/19 10:39 09/04/19 10:39 Lab Results 09/04/19 09/04/19 09/04/19 Range/Units 10:39 10:39 10:39 WBC 4.7 (3.8-10.6) k/uL RBC 4.15 (3.80-5.40) m/uL Hgb 12.9 (11.4-16.0) gm/dL Hct 40.4 (34.0-46.0) % MCV 97.3 (80.0-100.0) fL MCH 31.0 (25.0-35.0) pg MCHC 31.9 (31.0-37.0) g/dL RDW 12.5 (11.5-15.5) % Plt Count 239 (150-450) k/uL Neutrophils % 60 % Lymphocytes % 28 % Monocytes % 7 % Eosinophils % 3 % Basophils % 0 % Neutrophils # 2.8 (1.3-7.7) k/uL Lymphocytes # 1.3 (1.0-4.8) k/uL Monocytes # 0.3 (0-1.0) k/uL Eosinophils # 0.2 (0-0.7) k/uL Basophils # 0.0 (0-0.2) k/uL PT 9.6 (9.0-12.0) sec INR 0.9 (<1.2) APTT 22.8 (22.0-30.0) sec Sodium 137 (137-145) mmol/L Potassium 4.0 (3.5-5.1) mmol/L Chloride 104 (98-107) mmol/L Carbon Dioxide 27 (22-30) mmol/L Anion Gap 6 mmol/L BUN 9 (7-17) mg/dL Creatinine 0.68 (0.52-1.04) mg/dL Est GFR (CKD-EPI)AfAm >90 (>60 ml/min/1.73 sqM) Est GFR (CKD-EPI)NonAf 84 (>60 ml/min/1.73 sqM) Glucose 85 (74-99) mg/dL Calcium 9.2 (8.4-10.2) mg/dL Magnesium 2.2 (1.6-2.3) mg/dL Total Bilirubin 0.2 (0.2-1.3) mg/dL AST 24 (14-36) U/L ALT 8 (4-34) U/L Alkaline Phosphatase 61 (38-126) U/L Troponin I (0.000-0.034) ng/mL Total Protein 6.3 (6.3-8.2) g/dL Albumin 3.5 (3.5-5.0) g/dL Urine Color Urine Appearance (Clear) Urine pH (5.0-8.0) Ur Specific [place] (1.001-1.035) Urine Protein (Negative) Urine Glucose (UA) (Negative) Urine Ketones (Negative) Urine Blood (Negative) Urine Nitrite (Negative) Urine Bilirubin (Negative) Urine Urobilinogen (<2.0) mg/dL Ur Leukocyte Esterase (Negative) Urine RBC (0-5) /hpf Urine WBC (0-5) /hpf 09/04/19 09/04/19 Range/Units 10:39 11:07 WBC (3.8-10.6) k/uL RBC (3.80-5.40) m/uL Hgb (11.4-16.0) gm/dL Hct (34.0-46.0) % MCV (80.0-100.0) fL MCH (25.0-35.0) pg MCHC (31.0-37.0) g/dL RDW (11.5-15.5) % Plt Count (150-450) k/uL Neutrophils % % Lymphocytes % % Monocytes % % Eosinophils % % Basophils % % Neutrophils # (1.3-7.7) k/uL Lymphocytes # (1.0-4.8) k/uL Monocytes # (0-1.0) k/uL Eosinophils # (0-0.7) k/uL Basophils # (0-0.2) k/uL PT (9.0-12.0) sec INR (<1.2) APTT (22.0-30.0) sec Sodium (137-145) mmol/L Potassium (3.5-5.1) mmol/L Chloride (98-107) mmol/L Carbon Dioxide (22-30) mmol/L Anion Gap mmol/L BUN (7-17) mg/dL Creatinine (0.52-1.04) mg/dL Est GFR (CKD-EPI)AfAm (>60 ml/min/1.73 sqM) Est GFR (CKD-EPI)NonAf (>60 ml/min/1.73 sqM) Glucose (74-99) mg/dL Calcium (8.4-10.2) mg/dL Magnesium (1.6-2.3) mg/dL Total Bilirubin (0.2-1.3) mg/dL AST (14-36) U/L ALT (4-34) U/L Alkaline Phosphatase (38-126) U/L Troponin I <0.012 (0.000-0.034) ng/mL Total Protein (6.3-8.2) g/dL Albumin (3.5-5.0) g/dL Urine Color Light Yellow Urine Appearance Clear (Clear) Urine pH 5.0 (5.0-8.0) Ur Specific [place] 1.003 (1.001-1.035) Urine Protein Negative (Negative) Urine Glucose (UA) Negative (Negative) Urine Ketones Negative (Negative) Urine Blood Negative (Negative) Urine Nitrite Negative (Negative) Urine Bilirubin Negative (Negative) Urine Urobilinogen <2.0 (<2.0) mg/dL Ur Leukocyte Esterase Trace H (Negative) Urine RBC <1 (0-5) /hpf Urine WBC 3 (0-5) /hpf - Radiology Data Radiology results: report reviewed CT of the brain shows no acute intracranial abnormality. No evidence of old right MCA infarct. CT Cspine shows no acute osseous lesion. Degenerative changes. Patient's chest x-ray is negative for any acute process. Disposition Clinical Impression: Orthostatic dizziness Disposition: HOME SELF-CARE Condition: Good Instructions (If sedation given, give patient instructions): Syncope (ED) Additional Instructions: Patient is to drink plenty of fluids. Follow-up with your primary care physician. Patient should take a few moments when changing position from sitting to standing. Is patient prescribed a controlled substance at d/c from ED?: No Referrals: Alesia Graves MD [Primary Care Provider] - 1-2 days Time of Disposition: 12:49
[2019-09-04 10:52] LABS: Basophils % (A) 0 %; Eosinophils # (A) 0.2 k/uL (0-0.7); Eosinophils % (A) 3 %; HCT 40.4 % (34.0-46.0); HGB 12.9 gm/dL (11.4-16.0); Lymphocytes # (A) 1.3 k/uL (1.0-4.8); Lymphocytes % (A) 28 %; MCHC 31.9 g/dL (31.0-37.0); MCV 97.3 fL (80.0-100.0); Mean Platelet Volume 7.8; Monocytes # (A) 0.3 k/uL (0-1.0); Monocytes % (A) 7 %; Neutrophils # (A) 2.8 k/uL (1.3-7.7); Neutrophils % (A) 60 %; Platelet Count 239 k/uL (150-450); RBC 4.15 m/uL (3.80-5.40); RDW 12.5 % (11.5-15.5); WBC 4.7 k/uL (3.8-10.6)
[2019-09-04 11:07] LABS: INR 0.9 (<1.2); Partial Thromboplastin Time 22.8 sec (22.0-30.0); Prothrombin Time 9.6 sec (9.0-12.0)
--- NOTE | 2019-09-04 11:07 | CT ---
EXAMINATION TYPE: CT brain cspine wo con DATE OF EXAM: 09/04/2019 COMPARISON: Previous CT scan of the brain dated 08/28/2019. HISTORY: syncope, fall [address] DLP: 1358.1 mGycm Automated exposure control for dose reduction was used. TECHNIQUE: CT scan of the head and cervical spine are performed without contrast. FINDINGS: BRAIN: There has been a previous MCA infarct on the right. Central structures are midline. There is no evidence of hydrocephalus. No acute focal lesion, mass ef fect or midline shift is seen. I do not see evidence of intracranial blood. Visualized portions of the paranasal sinuses and mastoids are clear. The bony calvarium is intact. IMPRESSION: 1. NO ACUTE INTRACRANIAL ABNORMALITY. 2. EVIDENCE OF AN OLD RIGHT MCA INFARCT. CERVICAL SPINE: Visualized portions of the lungs are clear. Prevertebral soft tissues are normal. Vertebral body height and alignment are maintained. There is disc space loss and hypertrophic spondyl osis at C4-5 and C5-6 and present to lesser extent C6-7. There is uncovertebral joint disease present at these levels. No definite protrusion is seen. No fracture is identified. IMPRESSION: 1. NO ACUTE OSSEOUS LESION. 2. DEGENERATIVE CHANGE.
[2019-09-04 11:08] LABS: ALT 8 U/L (4-34); AST 24 U/L (14-36); African American GFR (CKD) >90 (>60 ml/min/1.73 sqM); Albumin 3.5 g/dL (3.5-5.0); Alkaline Phosphatase 61 U/L (38-126); Anion Gap 6 mmol/L; Blood Urea Nitrogen 9 mg/dL (7-17); Calcium 9.2 mg/dL (8.4-10.2); Carbon Dioxide 27 mmol/L (22-30); Chloride 104 mmol/L (98-107); Glucose 85 mg/dL (74-99); Magnesium 2.2 mg/dL (1.6-2.3); Non-African American GFR(CKD) 84 (>60 ml/min/1.73 sqM); Sodium 137 mmol/L (137-145); Total Bilirubin 0.2 mg/dL (0.2-1.3); Total Protein 6.3 g/dL (6.3-8.2)
[2019-09-04 11:33] LABS: Appearance,Urine Clear (Clear); Bilirubin,Urine Negative (Negative); Blood,Urine Negative (Negative); Color,Urine Light Yellow; Glucose,Urine (UA) Negative (Negative); Ketones,Urine Negative (Negative); Leukocyte Esterase,Urine Trace (Negative); Nitrite,Urine Negative (Negative); Protein,Urine Negative (Negative); RBC,Urine <1 /hpf (0-5); Specific Gravity,Urine 1.003 (1.001-1.035); Urobilinogen,Urine <2.0 mg/dL (<2.0); WBC,Urine 3 /hpf (0-5)
--- NOTE | 2019-09-04 12:07 | XR ---
EXAMINATION TYPE: XR chest 2V DATE OF EXAM: 09/04/2019 COMPARISON: 7120 TECHNIQUE: PA and lateral views submitted. HISTORY: Syncope FINDINGS: The lungs are clear and there is no pneumothorax, pleural effusion, or focal pneumonia. Heart size mildly prominent. Mild hyperinflation diffuse osteopenia. Arthropathy of the shoulders. Degenerative change of the spine. IMPRESSION: 1. No acute process.
[2019-09-04 13:05] VITALS: BP 132/76; PULSE 76
== END 2019-09-04 14:06 | disposition home or self-care (01) ==
LOC: EC 10:10
DX: R42 Dizziness and giddiness (principal); R55 Syncope and collapse; F41.9 Anxiety disorder, unspecified; F32.9 Major depressive disorder, single episode, unspecified; E78.5 Hyperlipidemia, unspecified; F03.90 Unspecified dementia, unspecified severity, without behavioral disturbance, psychotic disturbance, mood disturbance, and anxiety; I10 Essential (primary) hypertension; I48.91 Unspecified atrial fibrillation; K21.9 Gastro-esophageal reflux disease without esophagitis; S09.90XA Unspecified injury of head, initial encounter; I69.392 Facial weakness following cerebral infarction; E03.9 Hypothyroidism, unspecified; Z79.890 Hormone replacement therapy; Z79.01 Long term (current) use of anticoagulants; Z79.899 Other long term (current) drug therapy; Z86.711 Personal history of pulmonary embolism; Z87.891 Personal history of nicotine dependence; Z82.49 Family history of ischemic heart disease and other diseases of the circulatory system; W01.190A Fall on same level from slipping, tripping and stumbling with subsequent striking against furniture, initial encounter
CPT/HCPCS: 36415; 70450; 71046; 72125; 80053; 81001; 83735; 84484; 85025; 85610; 85730; 93005; 96360; 99285

== ENCOUNTER 2019-09-12 10:10 | Inpatient (IN) | payer MEDICARE ==
[2019-09-12] MEDS ORDERED: SODIUM CHLORIDE 0.9% 500 ML 500 ML IV STA (10:20)
--- NOTE | 2019-09-12 10:47 | ED ---
General Adult HPI - General Chief complaint: Neuro Symptoms/Deficit Stated complaint: Possible Stroke Time Seen by Provider: 09/12/19 10:10 Source: patient, EMS, RN notes reviewed, old records reviewed Mode of arrival: EMS Limitations: no limitations - History of Present Illness Initial comments: This is a 79-year-old female who presents to the emergency department after having been unresponsive this morning. Staff found her at the [facility] staring and not responding to any other verbal commands. Patient was drooling at that time. When EMS arrived she had some significant slurred speech which she normally has a little bit but it was much worse. She also has some residual left-sided weakness from a previous stroke. By the time EMS got the patient in the embolus her speech cleared up and she was alert and oriented 3. Patient herself has no complaints other than she didn't sleep for a wall last night because she had a long day yesterday. Patient denies any fever. Patient denies any abdominal pain or chest pain. Patient denies being short of breath. Patient denies any headache. Patient denies any nausea or vomiting. - Related Data Home Medications Medication Instructions Recorded Confirmed Famotidine [Pepcid] 20 mg PO DAILY@0600 05/04/16 09/04/19 Apixaban [Eliquis] 5 mg PO BID@08,199901/30/19 09/04/19 Levothyroxine Sodium [Synthroid] 50 mcg PO DAILY@0600 08/25/19 09/04/19 Losartan [Cozaar] 25 mg PO DAILY@0908/25/19 09/04/19 Pravastatin Sodium [Pravachol] 20 mg PO HS@219908/25/19 09/04/19 ALPRAZolam [Xanax] 0.25 mg PO Q8H PRN 09/04/19 09/04/19 Dextromethorphan HBr/Quinidine 1 cap PO BID@0900,209909/04/19 09/04/19 [Nuedexta 20-10 mg Capsule] Donepezil [Aricept] 5 mg PO HS@209909/04/19 09/04/19 LORazepam ORAL CONC [Ativan 0.5 mg PO Q6H PRN 09/04/19 09/04/19 Intensol] Melatonin 6 mg PO HS@209909/04/19 09/04/19 Midodrine HCl [ProAmatine] 10 mg PO TID@0900,1300,209909/04/19 09/04/19 Sennosides-Docusate Sodium 2 tab PO HS@209909/04/19 09/04/19 [Senokot-S] levETIRAcetam [Keppra] 500 mg PO BID@0900,209909/04/19 09/04/19 risperiDONE [RisperDAL] 0.5 mg PO BID@0900,209909/04/19 09/04/19 Allergies Allergy/AdvReac Type Severity Reaction Status Date / Time No Known Allergies Allergy Verified 09/04/19 10:45 Review of Systems ROS Statement: Those systems with pertinent positive or pertinent negative responses have been documented in the HPI. ROS Other: All systems not noted in ROS Statement are negative. Past Medical History Past Medical History: Atrial Fibrillation, CVA/TIA, Dementia, GERD/Reflux, Hyperlipidemia, Hypertension, Pulmonary Embolus (PE) Additional Past Medical History / Comment(s): 3 CVAs (2017, 2018, 2019; deficits LT arm, LT sided facial droop), spouse states pt may have beginings of dementia per his own observations and Dr. Yasmine Long, PE years ago, spouse unsure if pt ever had DVT, hypothyroid, bilateral hands with dupuytrens disease with surgeries, vertigo lately History of Any Multi-Drug Resistant Organisms: None Reported Past Surgical History: Appendectomy, Hysterectomy, Orthopedic Surgery Additional Past Surgical History / Comment(s): LORIE/CVN, R rotator cuff repair, bilateral hand surgeries for dupuytrens disease, bilateral cataract removals/spencer s implants, colonoscopies. Past Anesthesia/Blood Transfusion Reactions: No Reported Reaction, Motion Sickness Past Psychological History: Anxiety, Depression Smoking Status: Former smoker Past Alcohol Use History: None Reported Past Drug Use History: None Reported - Past Family History Mother Family Medical History: Coronary Artery Disease (CAD), Hyperlipidemia, Hypertension Additional Family Medical History / Comment(s): Mother had either a [place] or a CVA. Father Additional Family Medical History / Comment(s): Father was an alcoholic. General Exam - General Exam Comments Initial Comments: GENERAL: Patient is well-developed and well-nourished. Patient is nontoxic and well- hydrated and is in no acute distress. ENT: Neck is soft and supple. No significant lymphadenopathy is noted. Oropharynx is clear. Moist mucous membranes. Neck has full range of motion without eliciting any pain. EYES: The sclera were anicteric and conjunctiva were pink and moist. Extraocular movements were intact and pupils were equal round and reactive to light. Eyelids were unremarkable. PULMONARY: Unlabored respirations. Good breath sounds bilaterally. No audible rales rhonchi or wheezing was noted. CARDIOVASCULAR: There is a regular rate and rhythm without any murmurs gallops or rubs. ABDOMEN: Soft and nontender with normal bowel sounds. No palpable organomegaly was noted. There is no palpable pulsatile mass. SKIN: Skin is clear with no lesions or rashes and otherwise unremarkable. NEUROLOGIC: Patient is alert and oriented x3. Patient has some slight facial droop on the left which she states is normal. Patient has weakness in the left arm and cloth hauler. MUSCULOSKELETAL: Normal extremities with adequate strength and full range of motion. LYMPHATICS: No significant lymphadenopathy is noted PSYCHIATRIC: Normal psychiatric evaluation. Limitations: no limitations Course Vital Signs 09/12/19 09/12/19 09/12/19 10:12 10:19 10:20 Temperature 97.4 F L 97.4 F L Pulse Rate 58 L 58 L Respiratory 18 18 18 Rate Blood Pressure 116/72 116/72 O2 Sat by Pulse 100 100 Oximetry Medical Decision Making - Medical Decision Making EKG shows sinus bradycardia 57 bpm OR interval 190 QRS 74 QT interval is 452 QTC is 439. Patient's EKG shows no ST segment elevation or depression. CT shows an old right MCA infarct no acute abnormality noted I spoke with Dr. Lora she agreed to admit the patient admitted the patient I wrote admitting orders. - Lab Data Result diagrams: 09/12/19 10:54 09/12/19 10:54 Lab Results 09/12/19 09/12/19 09/12/19 Range/Units 10:52 10:54 10:54 WBC 5.0 (3.8-10.6) k/uL RBC 4.04 (3.80-5.40) m/uL Hgb 12.4 (11.4-16.0) gm/dL Hct 38.9 (34.0-46.0) % MCV 96.3 (80.0-100.0) fL MCH 30.7 (25.0-35.0) pg MCHC 31.9 (31.0-37.0) g/dL RDW 12.8 (11.5-15.5) % Plt Count 206 (150-450) k/uL Neutrophils % 73 % Lymphocytes % 16 % Monocytes % 7 % Eosinophils % 2 % Basophils % 0 % Neutrophils # 3.6 (1.3-7.7) k/uL Lymphocytes # 0.8 L (1.0-4.8) k/uL Monocytes # 0.4 (0-1.0) k/uL Eosinophils # 0.1 (0-0.7) k/uL Basophils # 0.0 (0-0.2) k/uL PT 9.7 (9.0-12.0) sec INR 0.9 (<1.2) APTT 23.0 (22.0-30.0) sec Sodium (137-145) mmol/L Potassium (3.5-5.1) mmol/L Chloride (98-107) mmol/L Carbon Dioxide (22-30) mmol/L Anion Gap mmol/L BUN (7-17) mg/dL Creatinine (0.52-1.04) mg/dL Est GFR (CKD-EPI)AfAm (>60 ml/min/1.73 sqM) Est GFR (CKD-EPI)NonAf (>60 ml/min/1.73 sqM) Glucose (74-99) mg/dL POC Glucose (mg/dL) (75-99) mg/dL POC Glu Application Operations Engineer ID Calcium (8.4-10.2) mg/dL Total Bilirubin (0.2-1.3) mg/dL AST (14-36) U/L ALT (4-34) U/L Alkaline Phosphatase (38-126) U/L Troponin I (0.000-0.034) ng/mL Total Protein (6.3-8.2) g/dL Albumin (3.5-5.0) g/dL Urine Color Light Yellow Urine Appearance Clear (Clear) Urine pH 6.5 (5.0-8.0) Ur Specific [place] 1.006 (1.001-1.035) Urine Protein Negative (Negative) Urine Glucose (UA) Negative (Negative) Urine Ketones Negative (Negative) Urine Blood Negative (Negative) Urine Nitrite Negative (Negative) Urine Bilirubin Negative (Negative) Urine Urobilinogen <2.0 (<2.0) mg/dL Ur Leukocyte Esterase Moderate H (Negative) Urine RBC 1 (0-5) /hpf Urine WBC 16 H (0-5) /hpf Ur Squamous Epith Cells 2 (0-4) /hpf Hyaline Casts 3 H (0-2) /lpf Urine Mucus Rare H (None) /hpf 09/12/19 09/12/19 09/12/19 Range/Units 10:54 10:54 11:42 WBC (3.8-10.6) k/uL RBC (3.80-5.40) m/uL Hgb (11.4-16.0) gm/dL Hct (34.0-46.0) % MCV (80.0-100.0) fL MCH (25.0-35.0) pg MCHC (31.0-37.0) g/dL RDW (11.5-15.5) % Plt Count (150-450) k/uL Neutrophils % % Lymphocytes % % Monocytes % % Eosinophils % % Basophils % % Neutrophils # (1.3-7.7) k/uL Lymphocytes # (1.0-4.8) k/uL Monocytes # (0-1.0) k/uL Eosinophils # (0-0.7) k/uL Basophils # (0-0.2) k/uL PT (9.0-12.0) sec INR (<1.2) APTT (22.0-30.0) sec Sodium 138 (137-145) mmol/L Potassium 4.0 (3.5-5.1) mmol/L Chloride 104 (98-107) mmol/L Carbon Dioxide 29 (22-30) mmol/L Anion Gap 5 mmol/L BUN 15 (7-17) mg/dL Creatinine 0.80 (0.52-1.04) mg/dL Est GFR (CKD-EPI)AfAm 82 (>60 ml/min/1.73 sqM) Est GFR (CKD-EPI)NonAf 71 (>60 ml/min/1.73 sqM) Glucose 63 L (74-99) mg/dL POC Glucose (mg/dL) 92 (75-99) mg/dL POC Glu Application Operations Engineer [facility] Calcium 9.3 (8.4-10.2) mg/dL Total Bilirubin 0.3 (0.2-1.3) mg/dL AST 23 (14-36) U/L ALT 9 (4-34) U/L Alkaline Phosphatase 59 (38-126) U/L Troponin I <0.012 (0.000-0.034) ng/mL Total Protein 6.5 (6.3-8.2) g/dL Albumin 3.7 (3.5-5.0) g/dL Urine Color Urine Appearance (Clear) Urine pH (5.0-8.0) Ur Specific [place] (1.001-1.035) Urine Protein (Negative) Urine Glucose (UA) (Negative) Urine Ketones (Negative) Urine Blood (Negative) Urine Nitrite (Negative) Urine Bilirubin (Negative) Urine Urobilinogen (<2.0) mg/dL Ur Leukocyte Esterase (Negative) Urine RBC (0-5) /hpf Urine WBC (0-5) /hpf Ur Squamous Epith Cells (0-4) /hpf Hyaline Casts (0-2) /lpf Urine Mucus (None) /hpf Disposition Clinical Impression: Transient cerebral ischemia Disposition: ADMITTED IP TO THIS HOSP Referrals: Alesia Graves MD [Primary Care Provider] - 1-2 days Time of Disposition: 12:22
--- NOTE | 2019-09-12 10:55 | CT ---
EXAMINATION TYPE: CT brain wo con for TPA DATE OF EXAM: 09/12/2019 COMPARISON: Previous study dated 09/04/2019. HISTORY: Neuro deficit, acute stroke suspected CT DLP: 1217.4 mGycm Automated exposure control for dose reduction was used. FINDINGS: There is evidence of an old right MCA infarct. This appears unchanged from previous. Central structur es are midline. There is no evidence of hydrocephalus. No acute focal lesion, mass effect or midline shift is seen. I do not see evidence of intracranial blood. Visualized portions of the paranasal sinuses and mastoids are clear. The bony calvarium is intact. IMPRESSION: 1. NO ACUTE INTRACRANIAL ABNORMALITY. 2. EVIDENCE OF AN OLD RIGHT MCA INFARCT.
[2019-09-12 11:01] LABS: Basophils % (A) 0 %; Eosinophils # (A) 0.1 k/uL (0-0.7); Eosinophils % (A) 2 %; HCT 38.9 % (34.0-46.0); HGB 12.4 gm/dL (11.4-16.0); Lymphocytes # (A) 0.8 k/uL (1.0-4.8); Lymphocytes % (A) 16 %; MCH 30.7 pg (25.0-35.0); MCHC 31.9 g/dL (31.0-37.0); MCV 96.3 fL (80.0-100.0); Mean Platelet Volume 7.8; Monocytes # (A) 0.4 k/uL (0-1.0); Monocytes % (A) 7 %; Neutrophils # (A) 3.6 k/uL (1.3-7.7); Neutrophils % (A) 73 %; Platelet Count 206 k/uL (150-450); RBC 4.04 m/uL (3.80-5.40); RDW 12.8 % (11.5-15.5)
--- NOTE | 2019-09-12 11:03 | XR ---
EXAMINATION TYPE: XR chest 2V DATE OF EXAM: 09/12/2019 HISTORY: altered mental status. REFERENCE: Previous study dated 09/04/2019. FINDINGS: The heart is mildly enlarged. The lungs are clear. Pleural space are clear. IMPRESSION: MILD CARDIOMEGALY.
[2019-09-12 11:10] LABS: INR 0.9 (<1.2); Prothrombin Time 9.7 sec (9.0-12.0)
[2019-09-12 11:12] LABS: Appearance,Urine Clear (Clear); Bilirubin,Urine Negative (Negative); Blood,Urine Negative (Negative); Color,Urine Light Yellow; Glucose,Urine (UA) Negative (Negative); Hyaline Casts,Urine 3 /lpf (0-2); Ketones,Urine Negative (Negative); Leukocyte Esterase,Urine Moderate (Negative); Mucus,Urine Rare /hpf; Nitrite,Urine Negative (Negative); PH, Urine 6.5 (5.0-8.0); Protein,Urine Negative (Negative); RBC,Urine 1 /hpf (0-5); Specific Gravity,Urine 1.006 (1.001-1.035); Squamous Epithelial Cell,Urine 2 /hpf (0-4); Urobilinogen,Urine <2.0 mg/dL (<2.0); WBC,Urine 16 /hpf (0-5)
[2019-09-12 11:13] LABS: Albumin 3.7 g/dL (3.5-5.0); Total Protein 6.5 g/dL (6.3-8.2)
[2019-09-12 11:14] LABS: Calcium 9.3 mg/dL (8.4-10.2); Total Bilirubin 0.3 mg/dL (0.2-1.3)
[2019-09-12 11:43] LABS: Glucose,Whole Blood 92 mg/dL (75-99)
[2019-09-12] MEDS ORDERED: ASPIRIN 325 MG TAB PO STA (12:22)
[2019-09-12] MEDS ORDERED: METOPROLOL TARTRATE 5 MG/5 ML VIAL IVP PRN (16:16)
[2019-09-12] MEDS: amLODIPine 5 MG TAB PO SCH (16:35)
[2019-09-12] MEDS ORDERED: ATORVASTATIN 80 MG TAB PO SCH (21:00)
[2019-09-12] MEDS ORDERED: PRAVASTATIN SODIUM 20 MG TAB PO SCH (22:00)
[2019-09-12] MEDS: levETIRAcetam 500 MG TAB PO SCH (22:10)
[2019-09-12] MEDS: SENNOSIDES-DOCUSATE SODIUM 1 EACH TAB PO SCH (22:11)
[2019-09-12] MEDS: APIXABAN 5 MG TAB PO SCH (22:13)
[2019-09-12] MEDS: MELATONIN 3 MG TABLET PO SCH (22:13)
[2019-09-12] MEDS: ATORVASTATIN 40 MG TAB PO SCH (22:13)
[2019-09-12] MEDS: FAMOTIDINE 20 MG TAB PO SCH (22:13)
[2019-09-12] MEDS: risperiDONE 0.5 MG TAB PO SCH (22:14)
[2019-09-12] MEDS: DONEPEZIL 5 MG TAB PO SCH (22:14)
[2019-09-13 04:18] LABS: Cholesterol 156 mg/dL (<200); HDL Cholesterol 56 mg/dL (40-60); LDL Cholesterol,Calculated 82 mg/dL (0-99); Triglycerides 88 mg/dL (<150)
[2019-09-13] MEDS: LEVOTHYROXINE 50 MCG TAB PO SCH (07:33)
[2019-09-13] MEDS: levETIRAcetam 500 MG TAB PO SCH ×2 (08:19→20:35)
[2019-09-13] MEDS: APIXABAN 5 MG TAB PO SCH ×2 (08:19→20:35)
[2019-09-13] MEDS: FAMOTIDINE 20 MG TAB PO SCH ×2 (08:19→20:34)
[2019-09-13] MEDS: ASPIRIN 325 MG TAB PO SCH (08:19)
[2019-09-13] MEDS: risperiDONE 0.5 MG TAB PO SCH ×2 (08:19→20:34)
[2019-09-13] MEDS: amLODIPine 5 MG TAB PO SCH (08:20)
--- NOTE | 2019-09-13 13:36 | P.HPIM ---
History of Present Illness H&P Date: 09/13/19 Chief Complaint: Unresponsiveness History of Present Illness This is a 79-year-old female patient of Dr. Aldo Long with past medical history of paroxysmal atrial fibrillation, hypertension, hyperlipidemia, hypothyroidism. Patient had a recent hospitalization in August of this year which time she was treated for TIA and possible seizure disorder with visual hallucinations most likely related to dementia and worsening Alzheimer's type. Patient was evaluated by neurology and psychiatry during that admission. Patient was discharged to [facility] where she has been residing and family is working on moving her to [facility] for long-term placement. Patient's is at bedside and states he has not seen her since she was admitted into [facility] on August 26. Yesterday around 10 AM he received a call from the patient's nurse that she was found unresponsive and she was completely out of it. They were concerned for CVA and patient was transferred to the [facility] emergency center for evaluation. Patient is noted to have slight slurring of her speech and slight weakness on the left side concerning for CVA. Patient was afebrile, heart rate 50, blood pressure 116/72, pulse ox 100% on room air. EKG sinus bradycardia at 57. CBC unremarkable. Urinalysis clear with moderate leukoesterase, WBC 16. Blood sugar 63. Electrolytes and renal function normal. Liver function tests normal. Troponin negative. Chest x-ray revealed mild cardiomegaly. CAT scan of the brain revealed no acute intracranial abnormality. Evidence of an old right MCA infarct. Patient admitted to the cardiac stepdown unit and consult with neurology. Patient was also started on ceftriaxone for UTI. Review of Systems Constitutional: No reported fever, no chills, no night sweats. Reported weakness, fatigue or lethargy. No daytime sleepiness. EENT: No headache. No blurred vision or double vision, no loss of vision. No nasal drainage or congestion. No epistaxis. No sore throat. Lungs: No shortness of breath, cough, no sputum production. No wheezing. Cardiovascular: No chest pain, no lower extremity edema. No palpitations. No paroxysmal nocturnal dyspnea. No orthopnea. No lightheadedness or dizziness. Reported syncopal episodes. Abdominal: No abdominal pain. No nausea, vomiting. No diarrhea. No constipation. No bloody or tarry stools.. No loss of appetite. Genitourinary: No dysuria, increased frequency, urgency. No urinary retention. Musculoskeletal: No myalgias. No muscle weakness, no gait dysfunction, no frequent falls. No back pain. No neck pain. Integumentary: No wounds, no lesions. No rash or pruritus. No unusual bruising. No change in hair or nails. Neurologic: No aphasia. No facial droop. Reported change in mentation. No head injury. No headache. No paralysis. No paresthesia. Psychiatric: No depression. No anxiety. Endocrine: Reported abnormal blood sugars. Social history: She quit smoking 26 years ago, smoked 1 pack a day for 16 years. No marijuana use or illicit drug use. 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 Patient is with her for the last 50 years and had 2 adopted children. Family history: Her father at 76 from colon cancer, mother at age 76 from [place], patient had 1 brother who is living and well and 2 adopted children with no major medical problem. Physical Examination Gen: This is a 79-year-old female. She is resting in bed and appears to be comfortable. Patient's is at bedside. HEENT: Head is atraumatic, normocephalic. Pupils equal, round. Sclerae is ani cteric. NECK: Supple. No JVD. No lymphadenopathy. No thyromegaly. LUNGS: Clear to auscultation. No wheezes or rhonchi. No intercostal retractions. HEART: Regular rate and rhythm. Systolic murmur. ABDOMEN: Soft. Bowel sounds are present. No masses. No tenderness. EXTREMITIES: Trace bilateral pedal edema. No calf tenderness. NEUROLOGICAL: Patient is awake, alert and confused. Slight slurring of speech and slight weakness on the left side. Positive slight nystagmus. Patient is cooperative. Cranial nerves 2 through 12 are grossly intact. Assessment and Plan 1. CVA versus TIA with slight slurred speech and left-sided weakness. Consult with neurology. Continue neuro checks. PT, OT, speech therapy. Consult with social work. 2. Unresponsiveness of unclear etiology, possibly due to hypoglycemia. Neurology consult. 3. Acute urinary tract infection. Continue Rocephin, urinary culture. 4. History of CVA. Continue aspirin, Lipitor for secondary prevention. 5. Paroxysmal atrial fibrillation. Continue eliquis 5 mg twice daily. 6. Alzheimer's or vascular dementia. Continue Aricept 5 mg at bedtime and Risperdal 0.5 mg twice daily. 7. Hypothyroidism. Continue levothyroxine 50 g daily. 8. Hyperlipidemia. Continue atorvastatin. 9. Gastroesophageal reflux disease and GI prophylaxis. Continue Pepcid 20 mg twice daily. 10. Generalized anxiety disorder. Continue Xanax 0.25 mg 3 times daily as needed. 11. Seizure disorder. Continue Keppra 500 mg twice daily.. 12. Hypertension. Patient started on Norvasc 5 mg daily. 13. DVT prophylaxis. Eliquis. 14. COVID-19 infection not present. Patient will be admitted to the hospital for a minimum of 2 night stay. Discharge plan: [facility]. Impression and plan of care have been directed as dictated by the signing physician. Emily Marroquin nurse practitioner acting as scribe for signing physician. Past Medical History Past Medical History: Atrial Fibrillation, CVA/TIA, Dementia, GERD/Reflux, Hyperlipidemia, Hypertension, Pulmonary Embolus (PE) Additional Past Medical History / Comment(s): 3 CVAs (2017, 2018, 2019; deficits LT arm, LT sided facial droop), spouse states pt may have beginings of dementia per his own observations and Dr. Yasmine Long, PE years ago, spouse unsure if pt ever had DVT, hypothyroid, bilateral hands with dupuytrens disease with surgeries, vertigo lately History of Any Multi-Drug Resistant Organisms: None Reported Past Surgical History: Appendectomy, Hysterectomy, Orthopedic Surgery Additional Past Surgical History / Comment(s): LORIE/CVN, R rotator cuff repair, bilateral hand surgeries for dupuytrens disease, bilateral cataract removals/lens implants, colonoscopies. Past Anesthesia/Blood Transfusion Reactions: No Reported Reaction, Motion Sic kness Past Psychological History: Anxiety, Depression Additional Psychological History / Comment(s): Pt resides with her spouse. He is her caregiver. She ambulates with a cane occasionally. They own a walker but she hasn't needed to use it. She no longer drives, her spouse drives. There is the possibility of dementia. Smoking Status: Former smoker Past Alcohol Use History: None Reported Additional Past Alcohol Use History / Comment(s): Pt started smoking as a teen a nd quit in 1976 Past Drug Use History: None Reported - Past Family History Mother Family Medical History: Coronary Artery Disease (CAD), Hyperlipidemia, Hypertension Additional Family Medical History / Comment(s): Mother had either a [place] or a CVA. Father Additional Family Medical History / Comment(s): Father was an alcoholic. Medications and Allergies Home Medications Medication Instructions Recorded Confirmed Type Famotidine [Pepcid] 20 mg PO DAILY@0900,209905/04/16 09/12/19 History Apixaban [Eliquis] 5 mg PO BID@0800,199901/30/19 09/12/19 History Levothyroxine Sodium [Synthroid] 50 mcg PO DAILY@0608/25/19 09/04/19 History Pravastatin Sodium [Pravachol] 20 mg PO HS@219908/25/19 09/12/19 History ALPRAZolam [Xanax] 0.25 mg PO Q8H PRN 09/04/19 09/12/19 History Dextromethorphan HBr/Quinidine 1 cap PO BID@0900,209909/04/19 09/12/19 History [Nuedexta 20-10 mg Capsule] Donepezil [Aricept] 5 mg PO HS@209909/04/19 09/12/19 History Melatonin 6 mg PO HS@209909/04/19 09/12/19 History Midodrine HCl [ProAmatine] 10 mg PO TID@0900,1300,209909/04/19 09/12/19 History Sennosides-Docusate Sodium 2 tab PO HS@209909/04/19 09/12/19 History [Senokot-S] levETIRAcetam [Keppra] 500 mg PO BID@0900,209909/04/19 09/12/19 History risperiDONE [RisperDAL] 0.5 mg PO BID@0900,209909/04/19 09/12/19 History Lorazepam 2mg/1ml Inj 0.5 mg IM BID PRN 09/12/19 09/12/19 History Allergies Allergy/AdvReac Type Severity Reaction Status Date / Time No Known Allergies Allergy Verified 09/12/19 13:18 Physical Exam Vitals: Vital Signs Temp Pulse Pulse Resp BP BP Pulse Ox 09/13/19 08:00 98 F 57 L 18 108/51 97 09/13/19 04:00 98.0 F 56 L 18 149/69 94 L 09/13/19 00:00 97.5 F L 58 L 16 181/74 09/12/19 20:00 97.5 F L 54 L 16 150/67 09/12/19 16:00 97.7 F 68 14 232/108 95 09/12/19 13:32 97.4 F L 58 L 18 116/72 100 09/12/19 13:04 97.7 F 63 18 204/95 98 09/12/19 10:20 97.4 F L 58 L 18 116/72 100 09/12/19 10:19 18 09/12/19 10:12 97.4 F L 58 L 18 116/72 100 Intake and Output 09/12/19 09/13/19 09/13/19 22:59 06:59 14:59 Intake Total 240 Output Total 1000 950 Balance -760 -950 Intake: Oral 240 Output: Urine 1000 950 Other: Voiding Method Bedpan Weight 75.5 kg Results CBC & Chem 7: 09/12/19 10:54 09/12/19 10:54 Labs: Abnormal Lab Results - Last 24 Hours (Table) 09/12/19 09/12/19 09/12/19 Range/Units 10:52 10:54 10:54 Lymphocytes # 0.8 L (1.0-4.8) k/uL Glucose 63 L (74-99) mg/dL Ur Leukocyte Esterase Moderate H (Negative) Urine WBC 16 H (0-5) /hpf Hyaline Casts 3 H (0-2) /lpf Urine Mucus Rare H (None) /hpf Microbiology - Last 24 Hours (Table) 09/12/19 10:52 Urine Culture - Preliminary Urine,Voided
[2019-09-13] MEDS ORDERED: MAGNESIUM HYDROXIDE 2,400 MG/10 ML CUP PO PRN (15:53)
[2019-09-13] MEDS: MELATONIN 3 MG TABLET PO SCH (20:34)
[2019-09-13] MEDS: ATORVASTATIN 40 MG TAB PO SCH (20:35)
[2019-09-13] MEDS: SENNOSIDES-DOCUSATE SODIUM 1 EACH TAB PO SCH (20:35)
[2019-09-13] MEDS: DONEPEZIL 5 MG TAB PO SCH (20:35)
[2019-09-14] MEDS: LEVOTHYROXINE 50 MCG TAB PO SCH (06:24)
[2019-09-14] MEDS: ASPIRIN 325 MG TAB PO SCH (08:59)
[2019-09-14] MEDS: APIXABAN 5 MG TAB PO SCH ×2 (08:59→21:04)
[2019-09-14] MEDS: levETIRAcetam 500 MG TAB PO SCH ×2 (08:59→21:03)
[2019-09-14] MEDS: FAMOTIDINE 20 MG TAB PO SCH ×2 (08:59→21:03)
[2019-09-14] MEDS: amLODIPine 5 MG TAB PO SCH (08:59)
[2019-09-14] MEDS: MAGNESIUM HYDROXIDE 2,400 MG/10 ML CUP PO PRN (09:00)
[2019-09-14] MEDS: risperiDONE 0.5 MG TAB PO SCH ×2 (09:03→21:04)
--- NOTE | 2019-09-14 11:23 | P.PN ---
Subjective This is a 79-year-old female patient of Dr. Aldo Long with past medical history of paroxysmal atrial fibrillation, hypertension, hyperlipidemia, hypothyroidism. Patient had a recent hospitalization in August of this year which time she was treated for TIA and possible seizure disorder with visual hallucinations most likely related to dementia and worsening Alzheimer's type. Patient was evaluated by neurology and psychiatry during that admission. Patient was discharged to [facility] where she has been residing and family is working on moving her to [facility] for long-term placement. Patient's is at bedside and states he has not seen her since she was admitted into [facility] on August 26. Yesterday around 10 AM he received a call from the patient's nurse that she was found unresponsive and she was completely out of it. They were concerned for CVA and patient was transferred to the [facility] emergency center for evaluation. Patient is noted to have slight slurring of her speech and slight weakness on the left side concerning for CVA. Patient was afebrile, heart rate 50, blood pressure 116/72, pulse ox 100% on room air. EKG sinus bradycardia at 57. CBC unremarkable. Urinalysis clear with moderate leukoesterase, WBC 16. Blood sugar 63. Electrolytes and renal function normal. Liver function tests normal. Troponin negative. Chest x-ray revealed mild cardiomegaly. CAT scan of the brain revealed no acute intracranial abnormality. Evidence of an old right MCA infarct. Patient admitted to the cardiac stepdown unit and consult with neurology. Patient was also started on ceftriaxone for UTI. 09/13: Patient seen this morning with at bedside, speech has improved. is requesting that patient is transferred to [facility] at this point instead of [facility]., PT OT speech and social work supervisor on the case plan for possible discharge tomorrow. Vital signs are stable, patient remains afebrile pulse rate 66 respirations 16, blood pressure 153/70, pulse ox 97% on room air. Urine culture was negative. Neurology is on the case. Review of Systems Constitutional: No reported fever, no chills, no night sweats. Reported weakness, fatigue or lethargy. No daytime sleepiness. EENT: No headache. No blurred vision or double vision, no loss of vision. No nasal drainage or congestion. No epistaxis. No sore throat. Lungs: No shortness of breath, cough, no sputum production. No wheezing. Cardiovascular: No chest pain, no lower extremity edema. No palpitations. No paroxysmal nocturnal dyspnea. No orthopnea. No lightheadedness or dizziness. Reported syncopal episodes. Abdominal: No abdominal pain. No nausea, vomiting. No diarrhea. No constipation. No bloody or tarry stools.. No loss of appetite. Genitourinary: No dysuria, increased frequency, urgency. No urinary retention. Musculoskeletal: No myalgias. No muscle weakness, no gait dysfunction, no frequent falls. No back pain. No neck pain. Integumentary: No wounds, no lesions. No rash or pruritus. No unusual bruising. No change in hair or nails. Neurologic: No aphasia. No facial droop. Reported change in mentation, speech has improved. No head injury. No headache. No paralysis. No paresthesia. Psychiatric: No depression. No anxiety. Endocrine: Reported abnormal blood sugars. Physical Examination Gen: This is a 79-year-old female. She is resting in bed and appears to be comfortable. Patient's is at bedside. HEENT: Head is atraumatic, normocephalic. Pupils equal, round. Sclerae is anicteric. NECK: Supple. No JVD. No lymphadenopathy. No thyromegaly. LUNGS: Clear to auscultation. No wheezes or rhonchi. No intercostal retractions. HEART: Regular rate and rhythm. Systolic murmur. ABDOMEN: Soft. Bowel sounds are present. No masses. No tenderness. EXTREMITIES: Trace bilateral pedal edema. No calf tenderness. NEUROLOGICAL: Patient is awake, alert and confused. Slight slurring of speech and slight weakness on the left side. Positive slight nystagmus. Patient is cooperative. Cranial nerves 2 through 12 are grossly intact. Objective - Vital Signs Vital signs: Vital Signs Temp 97.6 F 09/14/19 08:00 Pulse 66 09/14/19 08:00 Resp 20 09/14/19 08:00 BP 153/70 09/14/19 08:00 Pulse Ox 97 09/14/19 08:00 Intake & Output 09/13/19 09/14/19 09/14/19 18:59 06:59 18:59 Intake Total 572 240 Output Total 1000 800 200 Balance -428 -800 40 Weight 75 kg Intake: Intake, IV Titration 100 Amount cefTRIAXone 1 gm In 100 Sodium Chloride 0.9% 50 ml @ 100 mls/hr IVPB Q[facility]H [facility] Rx#:[id number] Oral 472 240 Output: Urine 1000 800 200 Other: Voiding Method Bedpan Bedpan Bedpan # Voids 1 1 # Bowel Movements 1 - Labs CBC & Chem 7: 09/12/19 10:54 09/12/19 10:54 Labs: Microbiology - Last 24 Hours (Table) 09/12/19 10:52 Urine Culture - Final Urine,Voided Assessment and Plan Assessment: Assessment and Plan 1. CVA versus TIA with slight slurred speech and left-sided weakness. Consult with neurology. Continue neuro checks. PT, OT, speech therapy. Consult with social work. 2. Unresponsiveness of unclear etiology, possibly due to hypoglycemia. Neurology consult. 3. Acute urinary tract infection. Continue Rocephin, urinary culture. 4. History of CVA. Continue aspirin, Lipitor for secondary prevention. 5. Paroxysmal atrial fibrillation. Continue eliquis 5 mg twice daily. 6. Alzheimer's or vascular dementia. Continue Aricept 5 mg at bedtime and Risperdal 0.5 mg twice daily. 7. Hypothyroidism. Continue levothyroxine 50 g daily. 8. Hyperlipidemia. Continue atorvastatin. 9. Gastroesophageal reflux disease and GI prophylaxis. Continue Pepcid 20 mg twice daily. 10. Generalized anxiety disorder. Continue Xanax 0.25 mg 3 times daily as needed. 11. Seizure disorder. Continue Keppra 500 mg twice daily.. 12. Hypertension. Patient started on Norvasc 5 mg daily. 13. DVT prophylaxis. Eliquis. 14. COVID-19 infection not present. Patient will be admitted to the hospital for a minimum of 2 night stay. Discharge plan: [facility]. Impression and plan of care have been directed as dictated by the signing physician. Livier Carlson nurse practitioner acting as scribe for signing physician.
--- NOTE | 2019-09-14 14:22 | P.CNNES ---
History of Present Illness Consult date: 09/14/19 Requesting physician: Emily Marroquin Reason for Consult: Rule out stroke History of Present Illness: This is a 79-year-old female with medical history of stroke in 2017 (right MCA territory in parietal region end of (with residual left facial weakness as well as left upper extremity weakness), TIA in 2018 for visual disturbance, atrial fibrillation, hypertension, hyperlipidemia and hypothyroidism who presented to the emergency department on 09/12/2019 after being unresponsive in the morning. The history was obtained from the patient's, patient's was at bedside as well as the patient daughter was also at bedside. Patient has been at [facility] for the last close to 14 days and staff found her at halfway staring and not responding to any other verbal commands. She was drooling at that time. Per family members no jerking was seen or urinary or bowel incontinence. Upon the EMS arrival she had slurred speech by the time he left that the patient to the emergency her speech cleared up and was alert oriented 3. Aseptic feels like she has some tingling numbness around the left side of the cheek left hand which is new compared to her previous visit she feels like she is having some weakness in her left hand which has not resolved. Otherwise she has no other neurological complaints. Patient denies of any fever. She denies of any nausea or vomiting. Denies any fever. She has been on Keppra 500 mg twice a day that we added on last hospital visit. Patient continues to have visual hallucination seeing [id number] family members who are . Also per family member she is some of her visual hallucination has been more visit as in getting great ants crawling Per family members they stated the patient's has been slowly responsive the last 3 months. She was placed on Aricept 5 mg daily family members don't know when. Last hospital visit she was placed on Risperdal and psychiatry seen the patient and they thought was possibly delirium reaction with major neurocognitive disorder, vascular reason that. In the hospital her workup was CT of the head on 801 which was reported as no acute intracranial abnormality. Evidence of an old right MCA infarct. Chest x-ray was reported as mild cardiomegaly. EKG was reported as sinus bradycardia,, ventricular rate of 57. Otherwise normal EKG. On presentation her initial blood pressure was 116/72 the heart rate was 58 respiratory rate was 18 pulse pulse 100 at room air, and temperature is 97.4 Fahrenheit orally. Patient is on Eliquis 5mg twice a day for her A. fib as well as she is on pravastatin 20 mg at home She presented on 08/25/2019 and I saw her for having speech difficulty, garbled speech episode lasted for 1 hour the resolved. Per the patient's 's he feels that she was accusing him of being somebody else and she was found to get out of the house also in the past about 6 weeks prior to the presentation she would see random animals outside her window, such as elephant or different a nimals that were not there. As well as that she would see her parents and her in-laws which have . At that time we got MR the brain and it shows chronic right MCA artery infarct, no acute said the no subacute infarct is evident. She also got CTA of the head and neck and was reported as no significant abnormality seen. Her TSH was 2.94 on 0 718 which is normal. Her hemoglobin A1c is 5.6 on also 08/26/2019. I got the EEG and on 08/27/2019 and and it was an abnormal routine awake drowsy and sleep routine EEG due to mild encephalopathic of unspecified etiology. Also there is focal slowing over the right temporal central parietal area consistent with a focal cerebral dysfunction and correlates with the patient history of right MCA stroke. There is no interictal ictal during the study. Because of the head that her patient's history of large right MCA stroke felt she was at risk of seizures and with the patient's above symptoms I placed her on Keppra 500 mg twice a day. Review of Systems Review of system: The 12 point system was reviewed and apparent positive and negative per HPI. Past Medical History Past Medical History: Atrial Fibrillation, CVA/TIA, Dementia, GERD/Reflux, Hyperlipidemia, Hypertension, Pulmonary Embolus (PE) Additional Past Medical History / Comment(s): 3 CVAs (2017, 2018, 2019; deficits LT arm, LT sided facial droop), spouse states pt may have beginings of dementia per his own observations and Dr. Yasmine Long, PE years ago, spouse unsure if pt ever had DVT, hypothyroid, bilateral hands with dupuytrens disease with surgeries, vertigo lately History of Any Multi-Drug Resistant Organisms: None Reported Past Surgical History: Appendectomy, Hysterectomy, Orthopedic Surgery Additional Past Surgical History / Comment(s): LORIE/CVN, R rotator cuff repair, bilateral hand surgeries for dupuytrens disease, bilateral cataract removals/lens implants, colonoscopies. Past Anesthesia/Blood Transfusion Reactions: No Reported Reaction, Motion Sickness Past Psychological History: Anxiety, Depression Additional Psychological History / Comment(s): Pt resides with her spouse. He is her caregiver. She ambulates with a cane occasionally. They own a walker but she hasn't needed to use it. She no longer drives, her spouse drives. There is the possibility of dementia. Smoking Status: Former smoker Past Alcohol Use History: None Reported Additional Past Alcohol Use History / Comment(s): Pt started smoking as a teen and quit in 1976 Past Drug Use History: None Reported - Past Family History Mother Family Medical History: Coronary Artery Disease (CAD), Hyperlipidemia, Hypertension Additional Family Medical History / Comment(s): Mother had either a WA or a CVA. Father Additional Family Medical History / Comment(s): Father was an alcoholic. Medications and Allergies Home Medications Medication Instructions Recorded Confirmed Type Famotidine [Pepcid] 20 mg PO DAILY@0900,209905/04/16 09/12/19 History Apixaban [Eliquis] 5 mg PO BID@0800,199901/30/19 09/12/19 History Levothyroxine Sodium [Synthroid] 50 mcg PO DAILY@0600 08/25/19 09/04/19 History Pravastatin Sodium [Pravachol] 20 mg PO HS@219908/25/19 09/12/19 History ALPRAZolam [Xanax] 0.25 mg PO Q8H PRN 09/04/19 09/12/19 History Dextromethorphan HBr/Quinidine 1 cap PO BID@0900,209909/04/19 09/12/19 History [Nuedexta 20-10 mg Capsule] Donepezil [Aricept] 5 mg PO HS@209909/04/19 09/12/19 History Melatonin 6 mg PO HS@209909/04/19 09/12/19 History Midodrine HCl [ProAmatine] 10 mg PO TID@0900,1300,209909/04/19 09/12/19 History Sennosides-Docusate Sodium 2 tab PO HS@209909/04/19 09/12/19 History [Senokot-S] levETIRAcetam [Keppra] 500 mg PO BID@09,209909/04/19 09/12/19 History risperiDONE [RisperDAL] 0.5 mg PO BID@0900,209909/04/19 09/12/19 History Lorazepam 2mg/1ml Inj 0.5 mg IM BID PRN 09/12/19 09/12/19 History Allergies Allergy/AdvReac Type Severity Reaction Status Date / Time No Known Allergies Allergy Verified 09/12/19 13:18 Physical Examination - Vital Signs Vital Signs: Vital Signs Temp Pulse Resp BP Pulse Ox 09/14/19 08:00 97.6 F 66 20 153/70 97 09/14/19 04:00 98.1 F 57 L 16 121/71 94 L 09/13/19 23:27 98.8 F 59 L 18 151/69 94 L 09/13/19 20:00 98.2 F 64 18 154/73 96 09/13/19 15:55 98.1 F 62 18 129/60 97 Intake and Output 09/13/19 09/14/19 09/14/19 22:59 06:59 14:59 Intake Total 236 240 Output Total 1050 400 800 Balance -814 -400 -560 Intake: Oral 236 240 Output: Urine 1050 400 800 Other: Voiding Method Bedpan Bedpan Bedpan # Voids 1 1 # Bowel Movements 1 Weight 75 kg GENERAL: The patient is lying in bed and is not in acute distress. CHEST: The heart rate is regular rate rhythm. No murmurs to auscultation. LUNG: Clear to auscultation bilaterally no wheezing noted throughout. Not labored breathing. ABDOMEN/GI: Bowel sounds present in all 4 quadrants. No tenderness to palpation throughout. NEUROLOGICAL: Higher mental function: The patient is awake, alert, oriented to self, place and time. Patient is following simple commands but is sometimes slow to respond and would sleep during examination. Able to identify objects such as pen, glasses and watch. Able to name patient's daughter and remembers her [id number] birthday. No aphasia and no neglect. Cranial nerves: The pupils are round, equal and reactive to light and accommodation. Visual patterson are full to confrontation throughout. Extraocular movement is intact no nystagmus is noted. Facial sensation is normal to touch throughout and this was repeated twice. The facial strength: Mild left lower facial weakness. Hearing is normal bilaterally to hand rub. Tongue is midline and moved [id number] without any difficulty. Abimbola dysarthria is noted. Shoulder shrug is normal bilaterally. Motor: The strength is 4+to 5- left hand and left lower extremity is 5-. Otherwise 5/5 over the right side. Normal tone and bulk. Cerebellum: Normal finger to nose bilaterally. Sensation: Sensation is inconsistent on left side but felt increased on right compared to left. Reflexes 2+ throughout except patellar 3+ bilaterally. Plantars is doingoing on the right but upongoing on left. Results PT of 9.7, INR 0.9, PTT is 23.0. The AST was 23, ALT is 9. - Laboratory Findings CBC and BMP: 09/12/19 10:54 09/12/19 10:54 Abnormal Lab Findings: Abnormal Labs 09/12/19 09/12/19 09/12/19 10:52 10:54 10:54 Lymphocytes # 0.8 L Glucose 63 L Ur Leukocyte Esterase Moderate H Urine WBC 16 H Hyaline Casts 3 H Urine Mucus Rare H Assessment and Plan Assessment: This is a 79-year-old female with medical history of stroke in 2017 (right MCA territory in parietal region end of (with residual left facial weakness as well as left upper extremity weakness), TIA in 2018 for visual disturbance, atrial fibrillation, hypertension, hyperlipidemia and hypothyroidism who presented to the emergency department on 09/12/2019 after being unresponsive in the morning. At [facility] she was drooling at that time. Per family members no jerking was seen or urinary or bowel incontinence. Upon the EMS arrival she had slurred speech by the time he left that the patient to the emergency her speech cleared up and was alert oriented 3. She has new tingling numbness around the left side of the cheek left hand which is new compared to her previous visit she feels like she is having some weakness in her left hand which has not resolved. She has been on Keppra 500 mg twice a day that we added on last hospital visit. Patient continues to have visual hallucination and seem to have worsened. Unresponsive and drooling is likely due seizure (especially with large right MCA stroke) New tingling of left cheek and left hand and states has weakness of left hand which she feels new: Rule out stroke. Visual hallucination and memory loss is likely due to neurocognitive disorder (Risk factor is history of right MCA stroke) Atrial fibrillation HTN Hyperlipidemia Plan: Increaed Keppra from 500mg bid to 1000mg bid. -she is on Eliquis 5mg bid, ASA 325. We will decrease ASA 81. Continue Lipitor 40mg daily -Ordered MRI Brain to rule out acute stroke. -For her memory loss and visual hallucination: Recommend outpatient neurocognitive assessment. She was notified to follow-up with neurologist as outpatient. -She is currently on Aricept 5mg daily and Risperdone 0.5mg bid. Plan was discussed with patient and her family. Ryan Malone MD Neurohospitalist Time with Patient: Greater than 30
--- NOTE | 2019-09-14 19:38 | MR ---
EXAMINATION TYPE: MR brain wo con DATE OF EXAM: 09/14/2019 COMPARISON: 08/26/2019 HISTORY: New left sided numbness Multiplanar multiecho imaging of the brain was performed without contrast. On the T2 and FLAIR images there is large area of increased signal involving grade white matter of th e right temporal lobe in the right middle cerebral artery distribution. There is no mass effect. Ther e is slight increased size of the right lateral ventricle compared to the left. There is no midline s hift. There is no sign of intracranial hemorrhage. Diffusion images show no evidence of an acute yinka ical infarct. There is small areas of increased signal around the frontal horn and occipital horn of the left lateral ventricle in the periventricular white matter. Cerebellum is intact. There is 5 mm area of increased signal in the central dick on the FLAIR images. There is no evidence of a posterior fossa mass. Internal auditory canals appear normal. There is thi nning of the corpus callosum. Sella turcica appears normal. There is 4 mm focus of increased signal in the left posterior frontal lobe anderson-white matter junction that appears new or increased compared to old exam. IMPRESSION: Large area of encephalomalacia right temporal lobe consistent with right middle cerebral artery infar ct unchanged. Small area of increased signal in the dick also consistent with lacunar infarct not sig nificantly different than old exam. Chronic small vessel ischemia in the periventricular white matter . Small white matter focus of increased signal left posterior frontal lobe appears increased and coul d be involving lacunar infarct.
[2019-09-14] MEDS: SENNOSIDES-DOCUSATE SODIUM 1 EACH TAB PO SCH (21:03)
[2019-09-14] MEDS: ATORVASTATIN 40 MG TAB PO SCH (21:03)
[2019-09-14] MEDS: MELATONIN 3 MG TABLET PO SCH (21:03)
[2019-09-14] MEDS: DONEPEZIL 5 MG TAB PO SCH (21:04)
[2019-09-15] MEDS: ACETAMINOPHEN TAB 325 MG TAB PO PRN ×4 (01:23→20:53)
[2019-09-15] MEDS: LEVOTHYROXINE 50 MCG TAB PO SCH (06:53)
[2019-09-15] MEDS: FAMOTIDINE 20 MG TAB PO SCH ×2 (09:26→20:53)
[2019-09-15] MEDS: APIXABAN 5 MG TAB PO SCH ×2 (09:26→20:53)
[2019-09-15] MEDS: levETIRAcetam 500 MG TAB PO SCH ×2 (09:27→20:52)
[2019-09-15] MEDS: ASPIRIN 81 MG PO SCH (09:27)
[2019-09-15] MEDS: amLODIPine 5 MG TAB PO SCH (09:33)
--- NOTE | 2019-09-15 10:24 | P.DS ---
Providers Date of admission: 09/13/19 15:47 Attending physician: Yossi Lora MD Consults: 09/13/19 09:14 Consult Physician Routine Consulting Provider: Ryan Malone Consult Reason/Comments: r/o CVA Do you want consulting provider notified?: Yes Primary care physician: [facility] Course: This is a 79-year-old female patient of Dr. Aldo Long with past medical history of paroxysmal atrial fibrillation, hypertension, hyperlipidemia, hypothyroidism. Patient had a recent hospitalization in August of this year which time she was treated for TIA and possible seizure disorder with visual hallucinations most likely related to dementia and worsening Alzheimer's type. Patient was evaluated by neurology and psychiatry during that admission. Patient was discharged to [facility] where she has been residing and family is working on moving her to [facility] for long-term placement. Patient's is at bedside and states he has not seen her since she was admitted into [facility] on August 26. Yesterday around 10 AM he received a call from the patient's nurse that she was found unresponsive and she was completely out of it. They were concerned for CVA and patient was transferred to the [facility] emergency center for evaluation. Patient is noted to have slight slurring of her speech and slight weakness on the left side concerning for CVA. Patient was afebrile, heart rate 50, blood pressure 116/72, pulse ox 100% on room air. EKG sinus bradycardia at 57. CBC unremarkable. Urinalysis clear with moderate leukoesterase, WBC 16. Blood sugar 63. Electrolytes and renal function normal. Liver function tests normal. Troponin negative. Chest x-ray revealed mild cardiomegaly. CAT scan of the brain revealed no acute intracranial abnormality. Evidence of an old right MCA infarct. Patient admitted to the cardiac stepdown unit and consult with neurology. Patient was also started on ceftriaxone for UTI. 09/13: Patient seen this morning with at bedside, speech has improved. is requesting that patient is transferred to [facility] at this point instead of [facility]., PT OT speech and social work manager on the case plan for possible discharge tomorrow. Vital signs are stable, patient remains afebrile pulse rate 66 respirations 16, blood pressure 153/70, pulse ox 97% on room air. Urine culture was negative. Neurology is on the case. 09/14: Patient seen this morning resting in bed, spirits seem to be improved today. Plan for discharge today to [facility]. Keppra was increased to 1000 mg twice a day as recommended by neurology patient should follow-up with a neurologist as outpatient and has a psychiatric assessment was at bedside and this was discussed. MRI done yesterday showed no major change from the previous one. Social work is on the case patient was evaluated by PT and OT. Vital signs were stable patient remains afebrile, blood pressure was 99/63 pulse rate 67, pulse ox 98% on room air. Assessment and Plan 1. CVA versus TIA with slight slurred speech and left-sided weakness. 2. Unresponsiveness of unclear etiology 3. Acute urinary tract infection. 4. History of CVA. 5. Paroxysmal atrial fibrillation. 6. Alzheimer's or vascular dementia. y. 7. Hypothyroidism. 8. Hyperlipidemia. 9. Gastroesophageal reflux disease 10. Generalized anxiety disorder. 11. Seizure disorder. 12. Hypertension. P 13. COVID-19 infection not present. Patient will be admitted to the hospital for a minimum of 2 night stay. Discharge plan: [facility]. Impression and plan of care have been directed as dictated by the signing physician. Livier Carlson nurse practitioner acting as scribe for signing physician. Patient Condition at Discharge: Stable Plan - Discharge Summary Discharge Rx Participant: No New Discharge Prescriptions: New RX: Aspirin 81 mg PO DAILY chew Cefuroxime [Ceftin] 250 mg PO BID 5 Days #6 tab RX: levETIRAcetam [Keppra] 1,000 mg PO Q12HR tab RX: Atorvastatin [Lipitor] 40 mg PO HS tab RX: amLODIPine [Norvasc] 5 mg PO DAILY tab RX: Acetaminophen Tab [Tylenol] 650 mg PO Q6HR PRN tab PRN Reason: Fever And/ Or Pain Continue RX: Famotidine [Pepcid] 20 mg PO DAILY@0900,2100 RX: Apixaban [Eliquis] 5 mg PO BID@0800,2000 RX: Levothyroxine Sodium [Synthroid] 50 mcg PO DAILY@0600 RX: Midodrine HCl [ProAmatine] 10 mg PO TID@0900,1300,2100 RX: Melatonin 6 mg PO HS@2100 RX: Sennosides-Docusate Sodium [Senokot-S] 2 tab PO HS@2100 Lorazepam 2mg/1ml Inj 0.5 mg IM BID PRN PRN Reason: Agitation Or Acute Anxiety RX: risperiDONE [RisperDAL] 0.5 mg PO BID@0900,2100 #6 tab RX: ALPRAZolam [Xanax] 0.25 mg PO Q8H PRN #12 tab PRN Reason: Agitation Changed RX: Donepezil [Aricept] 10 mg PO HS@2100 #0 Discontinued RX: Pravastatin Sodium [Pravachol] 20 mg PO HS@2200 Dextromethorphan HBr/Quinidine [Nuedexta 20-10 mg Capsule] 1 cap PO BID@0900,2099 RX: levETIRAcetam [Keppra] 500 mg PO BID@0900,2099 Discharge Medication List RX: Famotidine [Pepcid] 20 mg PO DAILY@0900,209905/04/16 [History] RX: Apixaban [Eliquis] 5 mg PO BID@0800,199901/30/19 [History] RX: Levothyroxine Sodium [Synthroid] 50 mcg PO DAILY@0600 08/25/19 [History] RX: Melatonin 6 mg PO HS@209909/04/19 [History] RX: Midodrine HCl [ProAmatine] 10 mg PO TID@0900,1300,209909/04/19 [History] RX: Sennosides-Docusate Sodium [Senokot-S] 2 tab PO HS@209909/04/19 [History] Lorazepam 2mg/1ml Inj 0.5 mg IM BID PRN 09/12/19 [History] Cefuroxime [Ceftin] 250 mg PO BID 5 Days #6 tab 09/15/19 [Rx] RX: ALPRAZolam [Xanax] 0.25 mg PO Q8H PRN #12 tab 09/15/19 [Rx] RX: Acetaminophen Tab [Tylenol] 650 mg PO Q6HR PRN tab 09/15/19 [Rx] RX: Aspirin 81 mg PO DAILY chew 09/15/19 [Rx] RX: Atorvastatin [Lipitor] 40 mg PO HS tab 09/15/19 [Rx] RX: Donepezil [Aricept] 10 mg PO HS@2100 #0 09/15/19 [Rx] RX: amLODIPine [Norvasc] 5 mg PO DAILY tab 09/15/19 [Rx] RX: levETIRAcetam [Keppra] 1,000 mg PO Q12HR tab 09/15/19 [Rx] RX: risperiDONE [RisperDAL] 0.5 mg PO BID@0900,2100 #6 tab 09/15/19 [Rx] Follow up Appointment(s)/Referral(s): Alesia Graves MD [Primary Care Provider] - 1-2 days Discharge Disposition: TRANSFER TO SNF/ECF
--- NOTE | 2019-09-15 13:30 | CDI ---
Documentation Clarification Form Date: 09/15/2019 12:51:25 PM From: Kelin Bolanos RN, CCDS Admit Date: 09/13/2019 03:47:00 PM Patient Name: Hali Carroll Visit Number: [id number] Discharge Date: ATTENTION: The Clinical Documentation Specialists (CDI) and [facility] Coding Staff appreciate your assistance in clarifying documentation. Please respond to the clarification below the line at the bottom and electronically sign. The CDI & [facility] Coding staff will review the response and follow-up if needed. Please note: Queries are made part of the Legal Health Record. If you have any questions, please contact the author of this message via ITS. Dr. Santiago Allen The patients principal diagnosis has not been clearly identified and requires clarification. 09/14 Discharge summary: CVA versus TIA with slight slurred speech and left-sided weakness She presented with the following: slight slurring of her speech and slight weakness on the left side. History/Risk factor: CVA residual left-sided weakness, Atrial Fibrillation, Dementia, Hypertension Clinical Indicators: 79-year-old female who present on 09/11 to ED after having been un[facility]. She was staring and not responding to any other verbal commands. When EMS arrived she had some significant slurred speech worse than normal. 09/11 vital signs in ED: 116/72 58 18 97.4 09/11 CT Brain shows an old MCA infarct no acute abnormality noted. 09/11 EKG: sinus bradycardia 57 bpm 09/11 Labs: Ua moderate urine Leukocyte Esterase 09/13 MRI Brain: Large area of encephalomalacia right temporal lobe consistent with right middle cerebral artery infarct unchanged. Small area of increased signal in the dick also consistent with lacunar infarct not significantly different than old exam. Treatment: Telemetry Monitoring Neurochecks Q1Hx4, Q2HX12, Q4H 09/13 Neurology consult: Unresponsive and drooling is likely due seizure(especially with large right MCA stroke) New tingling of left cheek and left hand and states has weakness of left hand which she fells new Rule out stroke. Visual hallucination and memory loss is likely due to neurocognitive disorder (risk factor is history of right MCA stroke). Atrial fibrillation Keppra 500 mg po bid to 1000 mg bid Eliquis 5 mg po bid ASA 81 mg po daily Lipitor 40 mg po daily Aricept 5 mg po daily Rocephin 1 gm iv daily In your professional opinion, can you please clarify which diagnosis, after study, accounted for the patients presenting symptoms and was the reason chiefly responsible for the admission? TIA Acute CVA Other specify (Last Revision: May 2017) MTDD
[2019-09-15] MEDS: ALPRAZolam 0.25 MG TAB PO PRN (13:32)
--- NOTE | 2019-09-15 18:53 | P.PN ---
Subjective Progress Note Date: 09/15/19 Principal diagnosis: Drooling, unresponsive likely due to Seizure Patient was seen at bedside and in the morning she stated that she's doing better. She was accompanied by her patient denies any further numbness or weakness in the her hand. She denies any numbness in the face. Per the patient as well as her as she was 7 that she's being discharged to a facility that she does not want. The patient stated that there is no family history of neurodegenerative disease, such as Lewy body dementia, Alzheimer's and family history of Parkinson's. Patient does not have any resting tremor. She doesn't have any urinary or bowel incontinence. Later in the day I spoke with the patient's daughter over the phone and she stated that the patient was more aggressive today and she was crying. And she stated that the she wants the patient more comfortable and the family thinking about the not being aggressive the images keep in the patient more comfort. Objective - Vital Signs Vital signs: Vital Signs Temp 97.6 F 09/15/19 12:00 Pulse 58 L 09/15/19 12:00 Resp 18 09/15/19 12:00 BP 183/81 09/15/19 12:00 Pulse Ox 96 09/15/19 12:00 Intake & Output 09/14/19 09/15/19 09/15/19 18:59 06:59 18:59 Intake Total 240 340 Output Total 800 300 300 Balance -560 40 -300 Weight 75.5 kg Intake: Intake, IV Titration 100 Amount cefTRIAXone 1 gm In 100 Sodium Chloride 0.9% 50 ml @ 100 mls/hr IVPB Q24H [facility] Rx#:[id number] Oral 240 240 Output: Urine 800 300 300 Other: Voiding Method Bedpan Toilet # Voids 1 # Bowel Movements 1 - Exam GENERAL: The patient is lying in bed and is not in acute distress. CHEST: The heart rate is regular rate rhythm. No murmurs to auscultation. LUNG: Clear to auscultation bilaterally no wheezing noted throughout. Not labored breathing. NEUROLOGICAL: Higher mental function: The patient is awake, alert, oriented to self, place and time. Able to identify objects such as pen, glassess and watch. Patient is following simple and complex commands. No aphasia but has sensory neglect upon touching stimuatneously on both arms or leg. . Cranial nerves: The pupils are round, equal and reactive to light and ac commodation. Visual patterson are full to confrontation throughout. Extraocular movement is intact no nystagmus is noted. Facial sensation is normal to touch throughout. There is lower facial weakness (old). Hearing is normal bilaterally to hand rub. Tongue is midline and moved [id number] without any difficulty. At times she does have minimal dysarthria but since she has excessive secretion. Shoulder shrug is normal bilaterally. Motor: The strength is 4+ to 5- on left upper and lower extremity. Otherwise 5/5 over the right side. Normal tone and bulk. Sensation: Sensation is normal to touch throughout. Reflexes (right/left): 2+ throughout except patellar 3+ bilaterally. Plantars are downgoing on right but upgoing on left.. - Labs CBC & Chem 7: 09/12/19 10:54 09/12/19 10:54 Assessment and Plan Assessment: This is a 79-year-old female with medical history of stroke in 2017 (right MCA territory in parietal region end of (with residual left facial weakness as well as left upper extremity weakness), TIA in 2018 for visual disturbance, atrial fibrillation, hypertension, hyperlipidemia and hypothyroidism who presented to the emergency department on 09/12/2019 after being unresponsive in the morning. At [facility] she was drooling at that time. Per family members no j erking was seen or urinary or bowel incontinence. Upon the EMS arrival she had slurred speech by the time he left that the patient to the emergency her speech cleared up and was alert oriented 3. She has new tingling numbness around the left side of the cheek left hand which is new compared to her previous visit she feels like she is having some weakness in her left hand which has not resolved. She has been on Keppra 500 mg twice a day that we added on last hospital visit. Patient continues to have visual hallucination and seem to have worsened. She does not have resting tremor or bladder or bowel dysfunction. She does not family hx of neurodegenerative disease. Unresponsive and drooling is likely due seizure (especially with large right MCA stroke) New tingling of left cheek and left hand and states has weakness of left hand which she feels new--resolved Visual hallucination and memory loss is likely due to neurocognitive disorder (Risk factor is history of right MCA stroke) Atrial fibrillation HTN Hyperlipidemia Plan: Yesterday I Increaed Keppra from 500mg bid to 1000mg bid with patient and family permission after notifying them about side-effect of medication and they were in agreement. Today daughter felt she was more irritable, so therefore we will decrease Keppra back to 500mg bid and will start Lamictal 25mg daily for 2 weeks. then go up to 25mg bid. (At that time can discontinue Keppra). Then after 2 weeks go up to 25mg in am and 50mg at night and two later after that to total of 50mg bid. -she is on Eliquis 5mg bid, ASA 325. We will decrease ASA 81. Continue Lipitor 40mg daily -MRI Brain: D showed a large areas of inflammation over the right temporal lobe consistent of right MCA infarct which is unchanged. There was a small area of increased signal in the dick also consistent with a lacunar infarct not signific ant significantly different from old exam. Chronic small vessel ischemia in the periventricular white matter. Small white matter focus of increased signal left posterior frontal lobe appears increased and can be involving lacunar infarct. I personally reviewed the MRI of the brain I felt that the left frontal lobe appeared similar to the prior MRI on her previous admission but and was seen not to the extent as 2017 but was seen at 2017 MRI. The pontine stroke or more seen on this 2020 MRI compared to the 2017 images. -For her memory loss and visual hallucination: Recommend outpatient german rocognitive assessment. She was notified to follow-up with neurologist as outpatient in the dementia clinic. One of the possibilities was Lewy body dementia since patient was sensetive to neuroleptic medication and per family around time Risperdal was started her visual hallucination worsened. -She is currently on Aricept 5mg daily. Risperdone 0.5mg bid discontinued Upon speaking with the patient daughter she stated that her memory problem has been going on for some time, and they wanted to make her more comfort and be less aggressive. No further neurological work-up. Plan was discussed with patient and her family. Ryan Malone MD Neurohospitalist Time with Patient: Greater than 30
[2019-09-15] MEDS: lamoTRIgine 25 MG TAB PO SCH (19:02)
[2019-09-15] MEDS: SERTRALINE 25 MG TAB PO SCH (19:02)
[2019-09-15] MEDS: SENNOSIDES-DOCUSATE SODIUM 1 EACH TAB PO SCH (20:52)
[2019-09-15] MEDS: MELATONIN 3 MG TABLET PO SCH (20:52)
[2019-09-15] MEDS: ATORVASTATIN 40 MG TAB PO SCH (20:53)
[2019-09-15] MEDS: MAGNESIUM HYDROXIDE 2,400 MG/10 ML CUP PO PRN (20:53)
[2019-09-15] MEDS: DONEPEZIL 5 MG TAB PO SCH (20:54)
[2019-09-16] MEDS: ALPRAZolam 0.25 MG TAB PO PRN
[2019-09-16 05:38] VITALS: RESP 18
[2019-09-16] MEDS: LEVOTHYROXINE 50 MCG TAB PO SCH (06:05)
--- NOTE | 2019-09-16 08:24 | P.DS ---
Providers Date of admission: 09/13/19 15:47 Expected date of discharge: 09/16/19 Attending physician: Yossi Lora MD Consults: 09/13/19 09:14 Consult Physician Routine Consulting Provider: Ryan Malone Consult Reason/Comments: r/o CVA Do you want consulting provider notified?: Yes Primary care physician: [facility] Course: Hospital Course: This is a 79-year-old female patient of Dr. Aldo Long with past medical history of paroxysmal atrial fibrillation, hypertension, hyperlipidemia, hypothyroidism. Patient had a recent hospitalization in August of this year which time she was treated for TIA and possible seizure disorder with visual hallucinations most likely related to dementia and worsening Alzheimer's type. Patient was evaluated by neurology and psychiatry during that admission. Patient was discharged to [facility] where she has been residing and family is working on moving her to [facility] for long-term placement. Patient's is at bedside and states he has not seen her since she was admitted into [facility] on August 26. Yesterday around 10 AM he received a call from the patient's nurse that she was found unresponsive and she was completely out of it. They were concerned for CVA and patient was transferred to the [facility] emergency center for evaluation. Patient is noted to have slight slurring of her speech and slight weakness on the left side concerning for CVA. Patient was afebrile, heart rate 50, blood pressure 116/72, pulse ox 100% on room air. EKG sinus bradycardia at 57. CBC unremarkable. Urinalysis clear with moderate leukoesterase, WBC 16. Blood sugar 63. Electrolytes and renal function normal. Liver function tests normal. Troponin negative. Chest x-ray revealed mild cardiomegaly. CAT scan of the brain revealed no acute intracranial abnormality. Evidence of an old right MCA infarct. Patient admitted to the cardiac stepdown unit and consult with neurology. Patient was also started on ceftriaxone for UTI. 09/13: Patient seen this morning with at bedside, speech has improved. is requesting that patient is transferred to [facility] at this point instead of [facility]., PT OT speech and renal social worker on the case plan for possible discharge tomorrow. Vital signs are stable, patient remains afebrile pulse rate 66 respirations 16, blood pressure 153/70, pulse ox 97% on room air. Urine culture was negative. Neurology is on the case. 09/14: Patient seen this morning resting in bed, spirits seem to be improved today. Plan for discharge today to [facility]. Keppra was increased to 1000 mg twice a day as recommended by neurology patient should follow-up with a neurologist as outpatient and has a psychiatric assessment was at bedside and this was discussed. MRI done yesterday showed no major change from the previous one. Social work is on the case dillon jaramillo was evaluated by PT and OT. Vital signs were stable patient remains afebrile, blood pressure was 99/63 pulse rate 67, pulse ox 98% on room air. 09/15: Patient is seen today in follow-up. At discharge was delayed waiting for authorization and accepting facility. She had no events overnight. is at bedside and states she is about the same. Social work is working on discharge planning to [facility]. Dr. India Malone has evaluated and followed during this hospitalization and believes symptoms related to seizure activity. He has increased Keppra to 1000 mg twice daily but due to concern for side effects, Keppra was decreased back to 500 mg twice daily and Lamictal 25 mg daily started. Patient will be on Lamictal 25 mg daily for 2 weeks then 25 mg twice daily. At that time, Keppra can be discontinued. Lamictal can then be increased after 2 weeks to 25 mg in the morning and 50 mg at night, 2 weeks later increase to 50 mg twice daily. Recommends continuing eliquis aspirin at 81 mg and statin. Patient will be discharged in stable condition. Assessment and Plan 1. Seizure 2. Unresponsiveness secondary to suspected seizure activity 3. Acute urinary tract infection. 4. History of CVA. 5. Paroxysmal atrial fibrillation. 6. Alzheimer's or vascular dementia. 7. Hypothyroidism. 8. Hyperlipidemia. 9. Gastroesophageal reflux disease 10. Generalized anxiety disorder. 11. Seizure disorder. 12. Hypertension. 13. COVID-19 infection not present. Discharge plan: [facility] under the care of Dr. Lora. Impression and plan of care have been directed as dictated by the signing physician. Emily Marroquin nurse practitioner acting as scribe for signing physician. Patient Condition at Discharge: Good Plan - Discharge Summary Discharge Rx Participant: No New Discharge Prescriptions: New Aspirin 81 mg PO DAILY chew Cefuroxime [Ceftin] 250 mg PO BID 5 Days #6 tab Atorvastatin [Lipitor] 40 mg PO HS tab amLODIPine [Norvasc] 5 mg PO DAILY tab Acetaminophen Tab [Tylenol] 650 mg PO Q6HR PRN tab PRN Reason: Fever And/ Or Pain levETIRAcetam [Keppra] 500 mg PO Q12HR #0 tab lamoTRIgine [LaMICtal] 25 mg PO DAILY #3 tab Sertraline [Zoloft] 25 mg PO DAILY #0 tab Continue Famotidine [Pepcid] 20 mg PO DAILY@0900,2099 Apixaban [Eliquis] 5 mg PO BID@0800,1999 Levothyroxine Sodium [Synthroid] 50 mcg PO DAILY@0600 Midodrine HCl [ProAmatine] 10 mg PO TID@0900,1300,2099 Melatonin 6 mg PO HS@2100 Sennosides-Docusate Sodium [Senokot-S] 2 tab PO HS@2100 ALPRAZolam [Xanax] 0.25 mg PO Q8H PRN #12 tab PRN Reason: Agitation Changed Donepezil [Aricept] 10 mg PO HS@2100 #0 Discontinued Pravastatin Sodium [Pravachol] 20 mg PO HS@2200 Dextromethorphan HBr/Quinidine [Nuedexta 20-10 mg Capsule] 1 cap PO BID@0900,2100 risperiDONE [RisperDAL] 0.5 mg PO BID@0900,2100 levETIRAcetam [Keppra] 500 mg PO BID@0900,2100 Lorazepam 2mg/1ml Inj 0.5 mg IM BID PRN PRN Reason: Agitation Or Acute Anxiety Discharge Medication List Famotidine [Pepcid] 20 mg PO DAILY@0900,2100 05/04/16 [History] Apixaban [Eliquis] 5 mg PO BID@0800,199901/30/19 [History] Levothyroxine Sodium [Synthroid] 50 mcg PO DAILY@0600 08/25/19 [History] Melatonin 6 mg PO HS@209909/04/19 [History] Midodrine HCl [ProAmatine] 10 mg PO TID@0900,1300,209909/04/19 [History] Sennosides-Docusate Sodium [Senokot-S] 2 tab PO HS@2100 09/04/19 [History] ALPRAZolam [Xanax] 0.25 mg PO Q8H PRN #12 tab 09/15/19 [Rx] Acetaminophen Tab [Tylenol] 650 mg PO Q6HR PRN tab 09/15/19 [Rx] Aspirin 81 mg PO DAILY chew 09/15/19 [Rx] Atorvastatin [Lipitor] 40 mg PO HS tab 09/15/19 [Rx] Cefuroxime [Ceftin] 250 mg PO BID 5 Days #6 tab 09/15/19 [Rx] Donepezil [Aricept] 10 mg PO HS@2100 #0 09/15/19 [Rx] amLODIPine [Norvasc] 5 mg PO DAILY tab 09/15/19 [Rx] Sertraline [Zoloft] 25 mg PO DAILY #0 tab 09/16/19 [Rx] lamoTRIgine [LaMICtal] 25 mg PO DAILY #3 tab 09/16/19 [Rx] levETIRAcetam [Keppra] 500 mg PO Q12HR #0 tab 09/16/19 [Rx] Follow up Appointment(s)/Referral(s): Alesia Graves MD [Primary Care Provider] - 1-2 days Discharge Disposition: TRANSFER TO SNF/ECF
[2019-09-16] MEDS: levETIRAcetam 500 MG TAB PO SCH (09:22)
[2019-09-16] MEDS: FAMOTIDINE 20 MG TAB PO SCH (09:22)
[2019-09-16] MEDS: amLODIPine 5 MG TAB PO SCH (09:23)
[2019-09-16] MEDS: lamoTRIgine 25 MG TAB PO SCH (09:23)
[2019-09-16] MEDS: ASPIRIN 81 MG PO SCH (09:23)
[2019-09-16] MEDS: SERTRALINE 25 MG TAB PO SCH (09:23)
[2019-09-16] MEDS: APIXABAN 5 MG TAB PO SCH (09:23)
[2019-09-16 13:50] VITALS: BP 108/57; PULSE 65; TEMP 97
== END 2019-09-16 16:20 | DRG 57 ==
LOC: EC 10:10 → 3SCARD 12:52 → OBSVTOIN 09-13 15:47
PROVIDERS: ADMIT Internal Medicine; ATTEND Internal Medicine
DX: I69.398 Other sequelae of cerebral infarction (principal); I69.354 Hemiplegia and hemiparesis following cerebral infarction affecting left non-dominant side; N39.0 Urinary tract infection, site not specified; F01.50 Vascular dementia, unspecified severity, without behavioral disturbance, psychotic disturbance, mood disturbance, and anxiety; G93.89 Other specified disorders of brain; G30.9 Alzheimer's disease, unspecified; G40.909 Epilepsy, unspecified, not intractable, without status epilepticus; I48.0 Paroxysmal atrial fibrillation; E03.9 Hypothyroidism, unspecified; F02.80 Dementia in other diseases classified elsewhere, unspecified severity, without behavioral disturbance, psychotic disturbance, mood disturbance, and anxiety; I11.9 Hypertensive heart disease without heart failure; Z11.59 Encounter for screening for other viral diseases; I69.392 Facial weakness following cerebral infarction; I69.322 Dysarthria following cerebral infarction; R40.2362 Coma scale, best motor response, obeys commands, at arrival to emergency department; R40.2142 Coma scale, eyes open, spontaneous, at arrival to emergency department; R40.2252 Coma scale, best verbal response, oriented, at arrival to emergency department; R00.1 Bradycardia, unspecified; K21.9 Gastro-esophageal reflux disease without esophagitis; E78.5 Hyperlipidemia, unspecified; Z79.01 Long term (current) use of anticoagulants; Z79.890 Hormone replacement therapy; Z79.899 Other long term (current) drug therapy; Z86.61 Personal history of infections of the central nervous system; Z86.711 Personal history of pulmonary embolism; Z90.49 Acquired absence of other specified parts of digestive tract; Z87.19 Personal history of other diseases of the digestive system; Z98.890 Other specified postprocedural states; Z90.710 Acquired absence of both cervix and uterus; Z87.42 Personal history of other diseases of the female genital tract; Z87.39 Personal history of other diseases of the musculoskeletal system and connective tissue; Z98.42 Cataract extraction status, left eye; Z98.41 Cataract extraction status, right eye; Z96.1 Presence of intraocular lens; Z87.891 Personal history of nicotine dependence; F41.1 Generalized anxiety disorder; Z82.49 Family history of ischemic heart disease and other diseases of the circulatory system; Z83.49 Family history of other endocrine, nutritional and metabolic diseases; Z81.1 Family history of alcohol abuse and dependence; Z82.3 Family history of stroke; Z80.0 Family history of malignant neoplasm of digestive organs
CPT/HCPCS: 36415; 70450; 70551; 71046; 80053; 80061; 81001; 84484; 85025; 85610; 85730; 87086; 87635; 93005; 96360; 96361; 99285